=== PATIENT | female | born 1955 | race Caucasian/White ===

== ENCOUNTER 2018-07-22 16:51 | Inpatient (IN) | payer MEDICARE, MEDICAID ==
--- NOTE | 2018-07-22 17:16 | ED ---
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 She was attempting to get up from a chair when she realized she could not control her leg. Patient reports pain in the right hip and inability to ambulate. The patient states that she cannot use her right leg when she tries to move it. She has not had this problem in the past. PMHX Crohns, numbness in her fingers, hip prostheses on both sides. No PMHx neurological problems. Patient seen at 17:06. Phone call with Dr. Amezquita, neurologist, at 17:20. Guru luna called 17:22. The patient was taken to get the CT brain done at 17:25. Radiologist called at 17:[address] CT is negative. - History of Current Complaint Chief Complaint: EDWeakness Stated Complaint: RT LEG WEAKNESS Hx Obtained From: Patient Onset/Duration: Hours Pain Intensity: 0 Timing: Constant Location: Is Discrete @ - right leg and hip Aggravating Factor(s): Ambulation Able to Bear Weight: No - Allergies/Home Medications Allergies/Adverse Reactions: Allergies Allergy/AdvReac Type Severity Reaction Status Date / Time aspirin Allergy Bleeding Verified 07/22/18 17:10 infliximab [From Remicade] Allergy Tachycardia Verified 07/22/18 17:10 sulfasalazine Allergy Headache Verified 07/22/18 17:10 [From Azulfidine] Tetanus Vaccines and Toxoid Allergy Swelling Verified 07/22/18 17:10 adhesive tapes (plastic) Allergy Intermediate Rash And Uncoded 07/22/18 17:09 Itching PMH/Surg Hx/FS Hx/Imm Hx Endocrine/Hematology History: Denies: Hx Diabetes Cardiovascular History: Reports: Hx Angina, Hx Hypertension - WELL CONTROLLED, Other Cardiovascular Problems/Disorders - PT STATES HAD SCARLET FEVER Denies: Hx Coronary Artery Disease, Hx Hypercholesterolemia, Hx Myocardial Infarction, Hx Pacemaker/ICD, Hx Valvular Heart Disease Respiratory History: Denies: Hx Asthma, Hx Chronic Obstructive Pulmonary Disease (COPD) GI History: Reports: Hx Crohn's Disease - SINCE 1970s, Hx Gastroesophageal Reflux Disease - ON DAILY MEDS, Hx Irritable Bowel - CROHN'S DISEASE, Other GI Disorders - ILLEOSTOMY TUBE History: Reports: Hx Kidney Infection - PT STATES 3 WEEKS AGO WAS ON CIPRO AND SEEN BY DR. LOPEZ Denies: Hx Dialysis, Hx Renal Disease Musculoskeletal History: Reports: Hx Arthritis - MOST JOINTS, OSTEO, Other Musculoskeletal History - Bilateral hip replacements Sensory History: Reports: Hx Cataracts - BILAT, NO SURGERY YET Denies: Hx Contacts or Glasses, Hx Hearing Aid Opthamlomology History: Reports: Hx Cataracts - BILAT, NO SURGERY YET Denies: Hx Contacts or Glasses Neurological History: Reports: Hx Headaches, Hx Migraine - PT STATES HASNT HAD SINCE NECK FUSION, Hx Nerve Disease - NO Dx YET, NUMBNESS FEET Psychiatric History: Denies: Hx Panic Disorder - Cancer History Hx Chemotherapy: No Hx Radiation Therapy: No - Surgical History Surgery Procedure, Year, and Place: BILAT THR [facility], W/ REVISIONS OF BOTH 2012 [facility]. 1990 C-4,5,6,7 FUSION X3 [facility]. RECTUM REMOVED [facility]--- CATARACTS BILAL EYES. CHOLECYSTECTOMY. SEVERAL SMALL BOWEL EXCISIONS W/ COLOSTOMY [facility]. YOUNG CHILD FX OF RIGHT CLAVICLE. 01/2015 RT HAND/ LEFT HAND AND ELBOWS CARPAL TUNNEL RELEASE,ULNAR NERVE. DECOMPRESSION [facility]. RIGHT ROTATOR CUFF RESURFACED Hx Anesthesia Reactions: No Infectious Disease History: No Infectious Disease History: Denies: Hx Clostridium Difficile, Hx Hepatitis, Hx Human Immunodeficiency Virus (HIV), Hx of Known/Suspected MRSA, Hx Shingles, Hx Tuberculosis, History Other Infectious Disease, Traveled Outside the [place] in Last 30 Days - Family History Known Family History: Positive: Cardiac Disease - CHF (mother) Family History: FHx of breast cancer - Social History Alcohol Use: None Substance Use Type: Reports: None Substance Use Comment - Amount & Last Used: DAILY Smoking Status (MU): Light Every Day Tobacco Smoker Type: Cigarettes Amount Used/How Often: 1PPEVERY 2 WEEKS, WAS 1PPD 1974..RECENTLY TRYING TO STOP Length of Time of Smoking/Using Tobacco: 30+ YEARS Have You Smoked in the Last Year: Yes Review of Systems Positive: Myalgia - right hip, Decreased ROM Positive: Weakness - right leg, Numbness - right leg All Other Systems Reviewed And Are Negative: Yes Physical Exam - Summary Physical Exam Summary: Appearance: Well-appearing, Well-nourished, lying in bed comfortably Skin: Warm, dry, no obvious rash Eyes: sclera anicteric, no conjunctival pallor ENT: mucous membranes moist, pharynx appears normal Neck: Supple, nontender Respiratory: Clear to auscultation, no signs of respiratory distress Cardiovascular: Normal S1, S2. No murmurs. Normal distal pulses in tibial and radial bilaterally. Abdomen: Soft, nontender, normal active bowel sounds present Musculoskeletal: Normal, Strength/ROM Intact, Motor function in all 4 extremities is normal and symmetric, excluding the right leg. There is no rigidity or tremor noted. Good strength of right ankle and knee. Normal tendon reflexes. Neurological: A&Ox3, awake and alert, mentation is normal, speech is fluent and appropriate, Level of consciousness nml. The patient is alert and oriented. Cranial nerves are grossly intact. Gaze is conjugate and without nystagmus. Peripheral vision is intact to confrontation. There are no gross sensory abnormalities to light touch. There is no truncal or fine motor ataxia. Only has focal weakness of the proximal right hip. Upgoing toe on the right foot. Psychiatric: affect is normal, does not appear anxious or depressed NIH: 2 for right lower extremity weakness Triage Information Reviewed: Yes Vital Signs On Initial Exam: Initial Vitals Temp Pulse Resp BP Pulse Ox 99.5 F 83 12 162/88 98 07/22/18 17:06 07/22/18 17:06 07/22/18 17:06 07/22/18 17:06 07/22/18 17:06 Vital Signs Reviewed: Yes Diagnostics - Vital Signs Vital Signs Temp Pulse Resp BP Pulse Ox 07/22/18 17:06 99.5 F 83 12 162/88 98 - Laboratory Result Diagrams: 07/22/18 18:00 07/22/18 18:00 Lab Statement: Any lab studies that have been ordered have been reviewed, and results considered in the medical decision making process. - CT Brain CT Interpretation Completed By: Radiologist Summary of CT Findings: NO ACUTE INTRACRANIAL PATHOLOGY. ED physician has reviewed this report Head CTA CT Interpretation Completed By: Radiologist Summary of CT Findings: 1. NO INTERNAL CAROTID ARTERY STENOSIS BY NASCET CRITERIA. 2. NO ANEURYSM, VASCULAR MALFORMATION, OCCLUSION, OR STENOSIS OF THE VISUALIZED INTRACRANIAL CIRCULATION. ED physician has reviewed this report - EKG 17:19 Cardiac Rate: NL - 79 bpm EKG Rhythm: Sinus Rhythm Summary of EKG Findings: P waves, QRS complex, and T waves are within normal limits, T waves and intervals are normal, no ischemic changes. 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 Non-Paretic Hand: Both Correctly Best Gaze (Only Horizontal Eye Movement): Normal Visual Field Testing: No Visual Loss Facial Paresis-Pt to Smile & Close Eyes or Grimace Symmetry: Normal/Symmetrical Motor Function - Right Arm: No Drift-Holds 10 Seconds Motor Function - Left Arm: No Drift-Holds 10 Seconds Motor Function - Right Leg: Effort Against [place] Motor Function - Left Leg: No Drift-Holds 10 Seconds Limb Ataxia-Must be out of Proportion to Weakness Present: Absent Sensory (Use Pinprick to Test Arms/Legs/Trunk/Face): Normal Best Language (Describe Picture, Name Items): No Aphasia Dysarthria (Read Several Words): Normal Extinction and Inattention: No Abnormality Total Score: 2 Re-Evaluation - Re-Evaluation First Eval Re-Evaluation Time: 18:35 Change: Unchanged Comment: This is a 63-year-old woman with a somewhat atypical stroke presentation with very isolated proximal right-sided lower extremity weakness and an upgoing toe on that side. Her initial dry CT scan was read by the radiologist as nothing acute, and based on that and discussion with the stroke neurologist from [facility], I ordered tPA. However, when the stroke neurologist himself reviewed CT scan he was concerned about the possibility of a tiny hemorrhage in the left thalamus. On my review the images I can see his concern and concur with the decision to not give TPA, especially given the patient's low NIH stroke scale which gives her a good prognosis any event. I discussed this with the patient and her friends and family and they also understand and agree. 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 She was attempting to get up from a chair when she realized she could not control her leg. Patient reports pain in the right hip and inability to ambulate. The patient states that she cannot use her right leg when she tries to move it. Patient seen at 17:06. We discussed patient care with [facility] neurologist, and they recommended Guru Luna protocol. Guru luna called at 17:22. Taken to CT scan at 17:25. Radiologist called at 17:35 to say the Brain CT is negative. An EKG reveals NSR 79, P waves, QRS complex, and T waves are within normal limits, T waves and intervals are normal, no ischemic changes. CT brain, per radiologist, NO ACUTE INTRACRANIAL PATHOLOGY. Head CTA reveals, per radiologist , 1. NO INTERNAL CAROTID ARTERY STENOSIS BY NASCET CRITERIA. 2. NO ANEURYSM, VASCULAR MALFORMATION, OCCLUSION, OR STENOSIS OF THE VISUALIZED INTRACRANIAL CIRCULATION. ED physician has reviewed this radiology report. Test results with no significant abnormalities. In the ED course the patient was given Alteplase and Iodixanol. We discussed patient care with Dr. Torres, hospitalist , and they recommended admission. - Diagnoses Provider Diagnoses: Intraparenchymal hemorrhage of brain - Physician Notifications Discussed Care Of Patient With: Mani Amezquita Time Discussed With Above Provider: 17:20 Instructed by Provider To: Other - code luna - Critical Care Time Critical Care Time: 30-74 min - 63-year-old woman with acute stroke syndrome requiring emergent neurology consultation, review of imaging studies, and decision regarding thrombolytic lysis Discharge - Sign-Out/Discharge Documenting (check all that apply): Patient Departure - admission - Discharge Plan Condition: Fair Disposition: ADMITTED TO [facility] Referrals: Aydee Ayoub MD [Primary Care Provider] - - Billing Disposition and Condition Condition: FAIR Disposition: Admitted to [facility] - Attestation Statements Document Initiated by Alexis: Yes Documenting Karelyibe: Issac Bean Provider For Whom Alexis is Documenting (Include Credential): Javad Neal MD Scribamilcar Attestation: IIssac, scribed for Javad Neal MD on 07/22/18 at 1907. Scribe Documentation Reviewed: Yes Provider Attestation: The documentation as recorded by the Issac kimball accurately reflects the service I personally performed and the decisions made by , Javad Neal MD Status of Scribe Document: Viewed Consult Consult: 18:[address] Torres about the patient and they recommended admission
[2018-07-22] MEDS ORDERED: Iodixanol* (CONTRAST) 320 MG/ML 100 ML SDV IV ONE (17:41)
[2018-07-22] MEDS ORDERED: Alteplase* 50 MG VIAL IV ONE ×2 (17:53)
[2018-07-22] MEDS ORDERED: Alteplase* 100 MG VIAL ONE (17:59)
[2018-07-22 18:07] LABS: ABS Basophils 0 10^3/ul (0-0.2); ABS Eosinophils 0.1 10^3/ul (0-0.6); ABS Monocytes 0.7 10^3/ul (0-0.8); ABS Neutrophils 5.6 10^3/ul (1.5-7.7); ABS Nucleated RBC 0 10^3/ul; Eosinophil % 0.7 %; Hematocrit 43 % (35-47); Hemoglobin 14.6 g/dl (12.0-16.0); Lymphocyte % 23.5 %; Mean Corpuscular HGB Conc 34 g/dl (31-36); Mean Corpuscular Hemoglobin 32 pg (27-31); Mean Corpuscular Volume 96 fL (80-97); Nucleated Red Blood Cells % 0; Platelet Count 162 10^3/ul (150-450); Red Cell Distribution Width 13 % (10.5-15); White Blood Count 8.5 10^3/ul (3.5-10.8)
[2018-07-22 18:13] LABS: INR 0.84 (0.77-1.02)
[2018-07-22 18:25] LABS: ALT 13 U/L (7-52); AST 24 U/L (13-39); Albumin 4.1 g/dL (3.2-5.2); Albumin/Globulin Ratio 1.5 (1-3); Alkaline Phosphatase 55 U/L (34-104); Anion Gap 6 mmol/L (2-11); BUN/Creatinine Ratio 18.7 (8-20); Blood Urea Nitrogen 14 mg/dL (6-24); CO2 Carbon Dioxide 26 mmol/L (22-32); Calcium 9.1 mg/dL (8.6-10.3); Chloride 105 mmol/L (101-111); EGFR Non-African American 77.6 (>60); Globulin 2.8 g/dL (2-4); Glucose 110 mg/dL (70-100); Potassium 3.4 mmol/L (3.5-5.0); Sodium 137 mmol/L (135-145); Total Protein 6.9 g/dL (6.4-8.9)
[2018-07-22 18:38] LABS: Alcohol < 10 mg/dL (<10)
[2018-07-22] MEDS ORDERED: hydrALAZINE IV* 20 MG/ML VIAL IV SLOW PU PRN (19:26)
--- NOTE | 2018-07-22 20:17 | HP ---
CC: Dr. Amezquita * HISTORY AND PHYSICAL: DATE OF ADMISSION: 07/22/18 TIME OF ADMISSION: 7 p.m. PRIMARY CARE PHYSICIAN: None currently. CHIEF COMPLAINT: "I couldn't stand up." HISTORY OF PRESENT ILLNESS: This is a 63-year-old female with history of Crohn' s and hypertension who presents to the emergency department with right leg weakness that began this morning. She was resting in her lounge chair when she tried to get up, she could not stand. She says for about half an hour, she "tried to get her right leg to work" and could not, so she called her friend who called EMS. She continues to have right leg weakness. In the ED, she was a code franco and her NIH scale score was 2. Telehealth was utilized and a brain CT showed no acute intracranial pathology and the CTA showed no large vessel occlusion; however, the neurologist at [place] reported a small thalamic hemorrhage, so tPA was deferred. Ms. Devi denies any other neurologic symptoms including visual changes, headaches, numbness, or tingling. She has not been ill recently. She has not had any falls. Of note, she has not been under the care of a medical doctor as she is interested in pursuing alternative therapies. She follows with Shireen Haji and she does see Dr. Kwan for GI. PAST MEDICAL HISTORY: Crohn disease status post partial colectomy with an ostomy, bilateral hip replacements, neck fusion, osteoarthritis, hypertension. Of note, her Crohn's has required hyperalimentation in the past but she currently follows a regular diet. SOCIAL HISTORY: She smokes a few cigarettes per day. She denies alcohol use. She smokes marijuana daily. She lives alone. Her healthcare proxy is Melly Chatman. REVIEW OF SYSTEMS: Positive for a 10-pound weight loss over the past few months. She has not had any fevers, falls, headaches, nausea, vomiting, visual changes. The remainder of the review of systems is negative. PHYSICAL EXAMINATION GENERAL: Alert, tearful female who appears older than her stated age. She is thin and frail. VITAL SIGNS: Temperature 99.5, heart rate 81, respiratory rate 14, pulse ox 96 on room air, blood pressure 147/80. HEENT: Shows no nystagmus. Her pupils are 3 mm bilaterally. Her oral mucosa is moist. She has no oropharyngeal exudates. NECK: No JVP. No adenopathy. No carotid bruits. LUNGS: Her lungs are clear bilaterally. CHEST: She has several healed chest incisions. She is in a regular rate and rhythm with no murmurs. ABDOMEN: A colostomy is noted with thin brown stool. She has no abdominal pain to palpation. No guarding or rebound. NEUROLOGIC: Her face is symmetric. Her upper extremity strength is 5/5. Her left lower extremity strength is 5/5 in the hip, knee, and ankle. Her right lower extremity strength is 0/5 in the hip, 5/5 in the knee, and 5/5 in the ankle. Her deep tendon reflexes in the patellae are 2+ bilaterally. She is also unable to internally or externally rotate the hip. She has tenderness to palpation on the lateral aspect of the right hip. Her sensation is grossly intact in both extremities and her DP and PT pulses are 2+ bilaterally. EXTREMITIES: Thin with no ecchymosis, edema, or rashes. DIAGNOSTIC STUDIES/LAB DATA: Brain CT, no acute intracranial pathology. Head CTA shows no internal carotid artery stenosis and no aneurysm, vascular malformation, occlusion, or stenosis, visualized intracranial circulation. EKG shows normal sinus rhythm at 79, normal axis, normal intervals, and no ST or T wave changes. White blood cells 8.5, hemoglobin 14.6, platelets 162. INR 0.84. Sodium 137, potassium 3.4, chloride 105, bicarb 26, creatinine 0.75, lactic acid 1.8. Troponin 0.01. LFTs within normal limits. Serum alcohol level was undetectable. ASSESSMENT AND PLAN: This is a 63-year-old female with a history of Crohn disease with malnutrition and hypertension, who presents to the emergency department with right leg weakness and is found to have a small thalamic hemorrhage per telemedicine's neurologist's read. 1. Thalamic hemorrhage vs. Ischemic CVA. This may be the etiology of her right leg weakness. The CT read does not site this but the telehealth phone call between the neurologist and the ED physician suggested a small bleed. The underlying reason for hemorrhage is unclear. She does have hypertension and is hypertensive here. Her highest blood pressure has been 179/85. She is not on any antiplatelet or anticoagulation. For this reason, tPA was appropriately avoided. I am consulting Neurology and will work to control her blood pressure better. I am ordering an MRI for the morning to better evaluated for a hemorrhage and appreciate further Neurology recommendations. 2. Right hip pain and weakness. Again, the working diagnosis is that this is the reflection of a thalamic hemorrhage; however, I would also like to rule out intrinsic hip pathology and start with a hip x-ray. 3. Crohn disease status post colectomy, this does not appear to be flared. 4. Severe protein-calorie malnutrition. 5. Hypertension. I am continuing her home amlodipine and we will add p.r.n. options for systolic blood pressure over 180. 6. DVT prophylaxis, contraindicated in the setting of possible intracranial hemorrhage. 7. Diet, unrestricted. She plans to bring in her supplements from home. 8. She is full code. I have discussed this with her. [id number]/[facility] #: [id number] WAY[facility]
[2018-07-22] MEDS: Sucralfate TAB* 1 GM PO SCH (22:12)
[2018-07-22] MEDS: Nicotine PATCH 14 MG/24 HR* PATCH TRANSDERM SCH (23:08)
[2018-07-23 00:36] LABS: Urine Appearance Clear; Urine Bilirubin Negative (Negative); Urine Blood Negative (Negative); Urine Color Straw; Urine Glucose Negative (Negative); Urine Ketones Negative (Negative); Urine Nitrite Negative (Negative); Urine Protein Negative (Negative); Urine Specific Gravity 1.033 (1.010-1.030); Urine Urobilinogen Negative (Negative)
[2018-07-23 00:45] LABS: Barbiturates Urine Screen None Detected (None Detect); Benzodiazepine Urine Screen None Detected (None Detect); Urine Cannabinoids Screen Presumptive Positive (None Detect)
[2018-07-23 06:20] LABS: Activated Partial Thrombo Time 26.4 seconds (26.0-36.3); INR 0.82 (0.77-1.02)
[2018-07-23 07:33] LABS: ABS Basophils 0 10^3/ul (0-0.2); ABS Eosinophils 0.1 10^3/ul (0-0.6); ABS Lymphocytes 3.1 10^3/ul (1.0-4.8); ABS Monocytes 0.8 10^3/ul (0-0.8); ABS Neutrophils 6.3 10^3/ul (1.5-7.7); ABS Nucleated RBC 0 10^3/ul; Eosinophil % 0.7 %; Hematocrit 49 % (35-47); Hemoglobin 16.5 g/dl (12.0-16.0); Lymphocyte % 29.8 %; Mean Corpuscular HGB Conc 34 g/dl (31-36); Mean Corpuscular Hemoglobin 32 pg (27-31); Mean Corpuscular Volume 97 fL (80-97); Mean Platelet Volume 7.8 fL (7.4-10.4); Nucleated Red Blood Cells % 0.1; Platelet Count 238 10^3/ul (150-450); Red Blood Count 5.11 10^6/ul (4.00-5.40); Red Cell Distribution Width 13 % (10.5-15); White Blood Count 10.2 10^3/ul (3.5-10.8)
[2018-07-23 07:50] LABS: Albumin 4.5 g/dL (3.2-5.2); Calcium 9.7 mg/dL (8.6-10.3); Potassium 3.3 mmol/L (3.5-5.0); Total Bilirubin 0.5 mg/dL (0.2-1.0)
[2018-07-23 07:57] LABS: Albumin/Globulin Ratio 1.2 (1-3); BUN/Creatinine Ratio 11.6 (8-20); EGFR Non-African American 85.4 (>60); Globulin 3.8 g/dL (2-4); HDL Cholesterol 51.9 mg/dL; Total Protein 8.3 g/dL (6.4-8.9)
[2018-07-23] MEDS: amLODIPine TAB* 5 MG PO SCH (09:10)
[2018-07-23] MEDS: Sucralfate TAB* 1 GM PO SCH ×5 (09:10→20:12)
[2018-07-23] MEDS: Nicotine PATCH 14 MG/24 HR* PATCH TRANSDERM SCH (09:11)
[2018-07-23] MEDS ORDERED: Ondansetron INJ* 2 MG/ML VIAL IV PRN (10:33)
--- NOTE | 2018-07-23 14:10 | PN ---
Subjective Date of Service: 07/23/18 Interval History: R arm back to normal or near normal. R leg better also, still impaired. No new c/o. Objective Active Medications: Amlodipine Besylate (Norvasc Tab*) 10 mg PO DAILY [facility] Last Admin: 07/23/18 09:10 Dose: 10 mg Clopidogrel Bisulfate (Plavix Tab*) 75 mg PO DAILY [facility] Famotidine (Pepcid Tab*) 20 mg PO BID [facility]; Protocol Hydralazine HCl (Apresoline Iv*) 5 mg IV SLOW PU Q6H PRN PRN Reason: SYSTOLIC BP GREATER THAN: Nicotine (Nicotine Patch 14 Mg/24 Hr*) 1 patch TRANSDERM DAILY [facility] Last Admin: 07/23/18 09:11 Dose: 1 patch Ondansetron HCl (Zofran Inj*) 4 mg IV Q4H PRN PRN Reason: NAUSEA Last Admin: 07/23/18 11:37 Dose: 4 mg Pharmacy Profile Note (Nicotine Patch Removal Note*) 1 note FOLLOW UP 2100 [facility] Sucralfate (Carafate*) 1 gm PO QID [facility] Last Admin: 07/23/18 12:24 Dose: Not Given Vital Signs - 8 hr 07/23/18 07/23/18 07/23/18 07:33 08:00 11:57 Temperature 98.3 F 99.1 F Pulse Rate 78 91 Respiratory 16 16 18 Rate Blood Pressure 137/72 142/67 (mmHg) O2 Sat by Pulse 98 95 Oximetry Oxygen Devices in Use Now: None Appearance: Alert, supine in bed. In good spirits. Looks comfortable. Eyes: No Scleral Icterus Neurological: Alert and Oriented x 3, NL Sensation - R show girl strong. Moves R leg but PT reports her gait is impaired. Result Diagrams: 07/23/18 06:00 07/23/18 06:00 Assess/Plan/Problems-Billing Assessment: - Patient Problems (1) CVA (cerebral vascular accident) Current Visit: Yes Status: Acute Code(s): I63.9 - CEREBRAL INFARCTION, UNSPECIFIED SNOMED Code(s): 451761672 Comment: Small L nonhemorrhagic CVA on MRI. Will discuss with Dr. Amezquita. Pt states she does not tolerate ASA due to lip swelling, consider clopidogrel. PMRU referral. (2) Crohns disease Current Visit: Yes Status: Acute Code(s): K50.90 - CROHN'S DISEASE, UNSPECIFIED, WITHOUT COMPLICATIONS SNOMED Code(s): 71261174 Comment: Pt due for her monthly Cimzia, will discuss with Dr. Kwan. (3) HTN (hypertension) Current Visit: Yes Status: Acute Code(s): I10 - ESSENTIAL (PRIMARY) HYPERTENSION SNOMED Code(s): 58742894 Comment: Continue amlodipine. (4) Tobacco abuse Current Visit: Yes Status: Acute Code(s): Z72.0 - TOBACCO USE SNOMED Code( s): 170474944 Comment: Pt advised to quit smoking and avoid second hand smoke.
[2018-07-23] MEDS: Famotidine TAB* 20 MG PO SCH ×2 (15:08→20:10)
[2018-07-23] MEDS: Clopidogrel TAB* 75 MG PO SCH (15:19)
--- NOTE | 2018-07-23 16:37 | CONS ---
NEUROLOGY CONSULTATION: DATE OF CONSULT: 07/23/18 LOCATION: She is inpatient in room 444. REFERRING PROVIDER: Dr. Torres. CHIEF COMPLAINT: Right leg weakness. HISTORY OF PRESENT ILLNESS: Sasha Devi is a 63-year-old woman who tried to get up out of her chair. She was able to eventually get up by using a living room chair as a walker. She called a friend who called EMS. She was brought into the emergency room where she had right leg weakness. There was no other weakness. She had a telestroke consultation from [facility]. The [facility] stroke specialist thought there might be a very small thalamic hemorrhagic and tPA was not given. Today, she feels her leg is better. She cannot walk, but she has been able to stand a little bit. There is no prior history of cerebrovascular disease. She had an MRI of the brain, which was done today and I reviewed the images and there is evidence of an acute left anterior cerebral artery infarction. PAST MEDICAL HISTORY: Notable for severe Crohn's disease with multiple operations. She required extensive hospitalizations and hyperalimentation. She continues to have problems with her intestines and has an ileostomy/colostomy. She has been losing weight and is down to about 80 pounds. She smokes, but is trying to quit and is down to a couple of cigarettes a day. She has chronic neuropathic pain in her feet and hands and has had bilateral hip replacements. MEDICATIONS: At home, consist of: 1. Vitamin B12 injections once a month. 2. I believe she is also on an immunological agent for her Crohn's. ALLERGIES: She is allergic to ASPIRIN, which caused lip swelling and cannot take nonsteroidal anti-inflammatory drugs. She had an allergic reaction to INFLIXIMAB as well. PHYSICAL EXAM: She is extremely thin. She has been afebrile throughout her hospital stay. Blood pressure 140/67, heart rate 90 and regular, respiratory rate 18. Oxygen saturation is 95% on room air. Heart is in a regular rhythm. There are no murmurs. There are multiple well-healed surgical scars on her neck and chest. There are no cervical bruits. Oral mucosa is moist and atraumatic. Lungs are clear bilaterally. Neurological Exam: She has left Freddy's syndrome. Both pupils react to light. She has mild ptosis of the left eye. She said that was done after a carotid surgery that she had years ago. Facial musculature is symmetric. Eye movements and funduscopic exam are normal. Visual archer are full to confrontation. Facial sensation to light touch is symmetric. Palate and tongue appear normal and there is no dysarthria. Hearing is intact. Motor exam reveals diffuse decreased muscle bulk. She has good strength in the upper extremities other than mild proximal weakness. She has proximal weakness in the left lower extremity in the grade 4 range, distal dorsiflexor strength is grade 5-. She can barely and only briefly raise the right leg off the bed. She has reasonably good plantar and dorsiflexor strength in the grade 4 range on the right. She has a right Babinski sign where the left plantar is flexor. Reflexes are absent at ankles, trace at knees and biceps. There is no rest or action tremor. She is a good historian. Memory is intact and language is fluent. She has stocking loss of light touch and pin discrimination in both legs. She has decreased light touch in the fingertips. I did not attempt to ambulate her. DIAGNOSTIC STUDIES/LAB DATA: Laboratory data reviewed and includes a chemistry profile with a potassium of 3.3, anion gap 15, glucose 108. Her last vitamin B12 level on 04/08/18 was normal at 540. Vitamin D level 04/14/18 was 34. Albumin is normal at 4.5. Her INR is within normal limits at 0.82. CBC is notable for an elevated hemoglobin at 16.5. Urinalysis is notable for elevated specific gravity, but otherwise unremarkable. MRI scan of the brain is reviewed and reveals a chronic small vessel left cerebellar infarct as well as small in the left frontal area. There is an acute infarct in the distribution of the left anterior cerebral artery. CT angiogram of the head and neck was interpreted as normal. I reviewed the images and I agree. IMPRESSION AND PLAN: Impression is that of a left anterior cerebral artery stroke. She does not appear to have large vessel disease. She does not appear to have diabetes either. I will check an hemoglobin A1c and I would recommend checking a thiamine level and folate level given her neuropathy and malnutrition. I would recommend that she have transthoracic echocardiogram as well to look for potential cardioembolic source. She has been started on Plavix , which I agree with. Although her LDL is a little above 70, given her intestinal disorders, I do not recommend adding a statin. She is currently trying to quit smoking. [id number]/[facility] #: [id number] [facility]
[2018-07-23] MEDS: Nicotine Patch Removal NOTE FOLLOW UP SCH (20:10)
[2018-07-24] MEDS: Nicotine PATCH 14 MG/24 HR* PATCH TRANSDERM SCH (07:57)
[2018-07-24] MEDS: amLODIPine TAB* 5 MG PO SCH (07:57)
[2018-07-24] MEDS: Clopidogrel TAB* 75 MG PO SCH (07:57)
[2018-07-24] MEDS: Cetirizine* 10 MG TAB PO SCH (07:57)
[2018-07-24] MEDS: Sucralfate TAB* 1 GM PO SCH ×3 (07:57→20:06)
[2018-07-24] MEDS: Famotidine TAB* 20 MG PO SCH ×2 (07:57→20:07)
--- NOTE | 2018-07-24 10:52 | ECHO ---
Patient: SOLA BURNETTE [facility] Rec#: [id number] : 1955 Date: 07/24/2018 Age: 63y Height: 163 cm / 64.2 in Weight: 39 kg / 86.0 lbs Sex: F BSA: 1.37 Room#: [facility] Admit Date#: 07/22/2018 Type: Inpatient Referring: Mani Amezquita MD Reading: Dusty Dyer MD Insulation Extruder Operator: Jen JosephSUSAN CC: Aydee Ayoub Transthoracic Echocardiogram Indication: CVA BP: 124/70 HR: 71 Rhythm: NSR Findings History: HTN, smoker, marijuana use. Technical Comments: The study is technically limited due to poor parasternal windows. Completed at 1000. Left Ventricle: The left ventricular chamber size is decreased. There is no left ventricular hypertrophy. Global left ventricular wall motion and contractility are within normal limits. There is normal left ventricular systolic function. The estimated ejection fraction is 55-60%. Abnormal left ventricular diastolic function is observed. There is an E to A reversal in the mitral valve flow pattern suggestive of diastolic dysfunction. Left Atrium: The left atrial chamber size is normal. Right Ventricle: Moderator Band present. The right ventricular cavity size is normal. The right ventricle wall thickness is mildly increased. The right ventricular global systolic function is normal. Right Atrium: The right atrial cavity size is normal. Interatrial septum appears intact without evidence of shunting. The bubble study is negative. A patent foramen ovale is not demonstrated with color Doppler and agitated contrast. Aortic Valve: The aortic valve is trileaflet. The aortic valve leaflets are mildly thickened. There is a trace of aortic regurgitation. There is no evidence of aortic stenosis. Mitral Valve: There is mitral annular calcification. The mitral valve leaflets are mildly thickened. There is trace to mild mitral regurgitation. There is no evidence of mitral stenosis. Tricuspid Valve: The tricuspid valve leaflets are normal. There is trace to mild tricuspid regurgitation. The right ventricular systolic pressure is estimated at 22 mmHg. No pulmonary hypertension is noted. There is no tricuspid stenosis. Pulmonic Valve: The pulmonic valve appears normal. There is a trace pulmonic regurgitation. There is no pulmonic stenosis. Pericardium: There is no significant pericardial effusion. Aorta: The ascending aorta is not well visualized. The aortic arch is not well visualized. The aortic root is normal in size. Pulmonary Artery: The main pulmonary artery appears normal. Venous: The inferior vena cava appears normal in size. There is a greater than 50% respiratory change in the inferior vena cava dimension. Contrast: Normal saline was used as contrast for the bubble study. Images 89-91. Intravenous contrast was used to help determine presence of intracardiac shunting. Summary: There was not any prior study for comparison. Conclusions The left ventricular chamber size is decreased. Global left ventricular wall motion and contractility are within normal limits. There is normal left ventricular systolic function. The estimated ejection fraction is 55-60%. Abnormal left ventricular diastolic function is observed. There is an E to A reversal in the mitral valve flow pattern suggestive of diastolic dysfunction. The bubble study is negative. A patent foramen ovale is not demonstrated with color Doppler and agitated contrast. There is a trace of aortic regurgitation. There is trace to mild mitral regurgitation. There is trace to mild tricuspid regurgitation. Measurements Name Value Normal Range RVIDd (AP) 2D 2.6 cm (0.9 - 2.6) RVDdMajor (2D) 3.1 cm (2.2 - 4.4) RAd ISD 4CH 3.4 cm (3.4 - 4.9) RA (A4C)W 3 cm (2.9 - 4.6) IVSd (2D) 0.8 cm (0.6 - 1) LVPWd (2D) 0.9 cm (0.6 - 1) LVIDd (2D) 2.7 cm (3.6 - 5.4) LVIDs (2D) 1.7 cm - LV FS (2D) 37 % (25 - 45) Aortic Annulus 1.9 cm (1.4 - 2.6) Ao root diameter (2D) 2.8 cm (2.1 - 3.5) LA dimension (AP) 2D 2.8 cm (2.3 - 3.8) LAd ISD 4CH 3.5 cm (2.9 - 5.3) LA ISD 4CH W 3.1 cm (2.5 - 4.5) Name Value Normal Range LA ESV BP (A/L) index 16 ml/m2 - Name Value Normal Range MV E-wave Vmax 0.6 m/sec - MV deceleration time 380 msec - MV A-wave Vmax 0.8 m/sec - MV E:A ratio 0.8 ratio - LV septal e' Vmax 0.07 m/sec - LV lateral e' Vmax 0.09 m/sec - LV E:e' septal ratio 8.6 ratio - LV E:e' lateral ratio 6.7 ratio - Name Value Normal Range AV Vmax 1.1 m/sec - AV VTI 21 cm - AV peak gradient 4 mmHg - AV mean gradient 2 mmHg - LVOT Vmax 0.9 m/sec - LVOT VTI 17 cm - LVOT peak gradient 3 mmHg - LVOT mean gradient 2 mmHg - Name Value Normal Range TR Vmax 2.2 m/sec - TR peak gradient 19 mmHg - RAP 3 mmHg - RVSP 22 mmHg - IVC diameter 1.8 cm - Name Value Normal Range PV Vmax 0.9 m/sec - PV peak gradient 3 mmHg -
--- NOTE | 2018-07-24 11:29 | PN ---
Subjective Date of Service: 07/24/18 Interval History: Feeling stronger. Appetite OK, better than before. She states she has lost about 10 lbs [facility] 6 months. Objective Active Medications: Amlodipine Besylate (Norvasc Tab*) 10 mg PO DAILY [facility] Last Admin: 07/24/18 07:57 Dose: 10 mg Cetirizine HCl (Zyrtec*) 10 mg PO DAILY [facility]; Protocol Last Admin: 07/24/18 07:57 Dose: 10 mg Clopidogrel Bisulfate (Plavix Tab*) 75 mg PO DAILY [facility] Last Admin: 07/24/18 07:57 Dose: 75 mg Famotidine (Pepcid Tab*) 20 mg PO BID [facility]; Protocol Last Admin: 07/24/18 07:57 Dose: 20 mg Hydralazine HCl (Apresoline Iv*) 5 mg IV SLOW PU Q6H PRN PRN Reason: SYSTOLIC BP GREATER THAN: Nicotine (Nicotine Patch 14 Mg/24 Hr*) 1 patch TRANSDERM DAILY [facility] Last Admin: 07/24/18 07:57 Dose: 1 patch Ondansetron HCl (Zofran Inj*) 4 mg IV Q4H PRN PRN Reason: NAUSEA Last Admin: 07/23/18 11:37 Dose: 4 mg Pharmacy Profile Note (Nicotine Patch Removal Note*) 1 note FOLLOW UP 2100 [facility] Last Admin: 07/23/18 20:10 Dose: 1 note Sucralfate (Carafate*) 1 gm PO QID [facility] Last Admin: 07/24/18 07:57 Dose: 1 gm Vital Signs - 8 hr 07/24/18 07/24/18 03:41 07:48 Temperature 98.4 F 96.8 F Pulse Rate 73 70 Respiratory 16 18 Rate Blood Pressure 124/70 124/68 (mmHg) O2 Sat by Pulse 95 99 Oximetry Oxygen Devices in Use Now: None Appearance: Alert, in a chair. In good spirits. Looks comfortable. Eyes: No Scleral Icterus Neurological: Alert and Oriented x 3, NL Sensation - Good strength all extremities. no tremor Result Diagrams: 07/23/18 06:00 07/23/18 06:00 Assess/Plan/Problems-Billing Assessment: - Patient Problems (1) CVA (cerebral vascular accident) Current Visit: Yes Status: Acute Code(s): I63.9 - CEREBRAL INFARCTION, UNSPECIFIED SNOMED Code(s): 802314592 Comment: Small L nonhemorrhagic CVA on MRI. Discussed with Dr. Amezquita. Pt states she does not tolerate ASA due to lip swelling, continuer clopidogrel. Possible PMRU admission 07/25. (2) Crohns disease Current Visit: Yes Status: Acute Code(s): K50.90 - CROHN'S DISEASE, UNSPECIFIED, WITHOUT COMPLICATIONS SNOMED Code(s): 81952811 Comment: Pt will have her Cimzia brought in to the hospital for administration by the staff on 07/24. Discussed with Dr. Kwan. (3) HTN (hypertension) Current Visit: Yes Status: Acute Code(s): I10 - ESSENTIAL (PRIMARY) HYPERTENSION SNOMED Code(s): 54962876 Comment: Continue amlodipine. (4) Tobacco abuse Current Visit: Yes Status: Acute Code(s): Z72.0 - TOBACCO USE SNOMED Code( s): 911207154 Comment: Pt advised to quit smoking and avoid second hand smoke.
[2018-07-24] MEDS: Nicotine Patch Removal NOTE FOLLOW UP SCH (20:10)
[2018-07-25] MEDS: Sucralfate TAB* 1 GM PO SCH (06:11)
[2018-07-25 07:44] VITALS: BP 121/60
[2018-07-25] MEDS: amLODIPine TAB* 5 MG PO SCH (07:48)
[2018-07-25] MEDS: Cetirizine* 10 MG TAB PO SCH (07:48)
[2018-07-25] MEDS: Clopidogrel TAB* 75 MG PO SCH (07:48)
[2018-07-25] MEDS: Famotidine TAB* 20 MG PO SCH (07:48)
[2018-07-25] MEDS: Nicotine PATCH 14 MG/24 HR* PATCH TRANSDERM SCH (07:48)
[2018-07-25] MEDS ORDERED: CERTOLIZUMAB PEGOL 200 MG SUBCUT SCH (09:00)
== END 2018-07-25 10:35 | DRG 64 ==
LOC: ED 16:51 → MEDTELE 19:16
PROVIDERS: ADMIT Internal Medicine; ATTEND Internal Medicine
DX: I63.522 Cerebral infarction due to unspecified occlusion or stenosis of left anterior cerebral artery (principal); E43 Unspecified severe protein-calorie malnutrition; K50.90 Crohn's disease, unspecified, without complications; Z68.1 Body mass index [BMI] 19.9 or less, adult; G90.2 Horner's syndrome; G62.89 Other specified polyneuropathies; G83.11 Monoplegia of lower limb affecting right dominant side; F17.210 Nicotine dependence, cigarettes, uncomplicated; I10 Essential (primary) hypertension; M19.90 Unspecified osteoarthritis, unspecified site; F12.90 Cannabis use, unspecified, uncomplicated; Z96.643 Presence of artificial hip joint, bilateral; Z93.2 Ileostomy status
CPT/HCPCS: 36415; 70450; 70496; 70498; 70551; 80053; 80061; 80307; 80320; 81003; 82746; 83036; 83605; 84425; 84484; 85025; 85610; 85730; 93005; 93306; 99284; A9270-GY; G0480; G8978-GP-CJ; G8979-GP-CH; G8987-GO-CJ; G8988-GO-CI; J2405; J2997; Q9967

== ENCOUNTER 2018-07-25 07:03 | Inpatient (IN) | payer MEDICARE, MEDICAID ==
[2018-07-25] MEDS ORDERED: Acetaminophen TAB* 325 MG PO PRN (12:21)
[2018-07-25] MEDS ORDERED: Cyanocobalamin INJ * 1,000 MCG/ML VIAL 1 ML VIAL IM ONE (12:31)
--- NOTE | 2018-07-25 12:43 | PMRUTEAM ---
PMRU: Team Meeting Current Status: Physical Therapy: Current Status Bed Mobility Assistance Independent Transfer Mobility Assistance Contact Guard Assist Ambulation Assistance Contact Guard Assist Ambulation Assistive Devices Rolling Walker Stairs Assistance not tested Stairs Recommended Devices not tested Number of Stairs 6 Occupational Therapy: Current Status - supervision dressing, bathing, toileting , grooming. Contact guard for functional transfers. Independent eating. Social Work: Current Status Discharge Plan return home with home care svs and family support Potential for Family Training pt's family are involved and supportive Anticipated Discharge Home Destination Discharge With home care svs and family support Goals: Physical Therapy: Initial Goals Independent bed mobility, transfers, ambulation with least restrictive device 150ft and 6 stairs. Occupational Therapy: Initial Goals Independent feeding, grooming, bathing, dressing, toileting and simple home tasks and cooking. Social Work: Goals Discharge Plan return home with home care svs and family support Potential for Family Training pt's family are involved and supportive Anticipated Discharge Home Destination Discharge With home care svs and family support Care Plan: Self administration and education on medications. Refer to [facility] for f/u and assistance with finding a PCP. Stroke education Ostomy self management Medicine Note: Length of Stay: [4 days] Anticipated Discharge Destination: Home Tentative Discharge Date: [07/29/18] Discharged to: [home]
--- NOTE | 2018-07-25 15:40 | HP ---
CC: Dr. Kwan; Shireen Haji NP REHABILITATION ADMISSION: DATE OF ADMISSION: 07/25/18 PRIMARY CARE PROVIDER: None. CONTINUITY DIRECTOR: Dr. Kwan. VICE PRESIDENT DIGITAL STRATEGIST: Shireen Haji NP. REASON FOR ADMISSION: Ischemic stroke with right hemiplegia. HISTORY OF PRESENT ILLNESS: This is a 63-year-old woman, who has been disabled due to Crohn's disease and chronic malnutrition, who was admitted on 07/22/18 with right leg weakness. CT of the head was negative for hemorrhage, although the telemedicine neurologist was concerned for a very small thalamic hemorrhage. CTA showed no large vessel occlusion. No tPA was administered. She was later seen by Dr. Amezquita the following day. MRI of the brain showed a subacute ischemic infarct in the left precentral and postcentral areas with some chronic white matter changes in small vessel territories. She was started on Plavix. Folate level was normal. A thiamine level was ordered and drawn, but the result is not back yet. This was done due to her severe malnutrition. Transthoracic echo on 07/24/18 showed ejection fraction of 55% to 60%. There was no evidence of a patent foramen ovale. She has had return of motor function in her right arm and leg, although still has some impaired coordination and proprioceptive deficits. Prior to admission, she was independent with all ADLs , mobility, and driving. She did not require any assistive devices. With occupational therapy, she has required contact guard assistance for functional transfers. With physical therapy, she required contact guard assistance for transfers and ambulating using a rolling walker. She has not done any stairs yet. PAST MEDICAL HISTORY: 1. Crohn's disease, status post partial colectomy with ostomy. 2. Status post bilateral hip replacements and revisions. 3. Status post cervical fusion, C4 through C7. 4. Osteoarthritis. 5. Hypertension. 6. Ischemic stroke, see history of present illness. 7. Chronic neuropathic pain affecting her hands and feet bilaterally. 8. History of multiple cut downs at her neck for hyperalimentation with one resulting in a pneumothorax and also left eye ptosis. MEDICATIONS: 1. Vitamin B12 injection IM q. month, which is due today. 2. Plavix 75 mg daily. 3. Norvasc 10 mg daily. 4. Zyrtec 10 mg daily. 5. Pepcid 20 mg b.i.d. 6. Nicotine patch 14 mg per 24 hours. 7. Sucralfate 1 g 4 times per day. 8. Cimzia 200 mg subcutaneously q.28 days given today. ALLERGIES: ASPIRIN, NSAIDS, INFLIXIMAB, SULFASALAZINE, TETANUS VACCINE, ADHESIVE TAPE. FAMILY HISTORY: Sister, bladder cancer. Niece, breast cancer. Mother, congestive heart failure. Father, lung cancer. SOCIAL HISTORY: She lives alone. She has an apartment with 5 to 6 steps to enter and then is 1 level. She has smoked a few cigarettes per day and has been quitting, but as of this episode now, says that she has quit for good. No alcohol. She does regularly use marijuana for pain control. Healthcare proxy is Melly Chtaman. She has been on disability due to her Crohn's disease. REVIEW OF SYSTEMS: See history of present illness and past medical history. The remainder of a 13-system review was completed. She acknowledges a 10-pound weight loss over the last 6 months. PHYSICAL EXAMINATION GENERAL: Well developed, somewhat cachectic, appearing stated age. Mental Status: No acute distress. Alert and oriented x3. VITAL SIGNS: Temperature 97.5, pulse 87, respiration rate 16, oxygenation 99% on room air, blood pressure 148/60. HEENT: Normocephalic, atraumatic. Oropharynx is clear. Moist mucous membranes. LUNGS: Clear to auscultation bilaterally. HEART: Regular rate and rhythm. ABDOMEN: Active bowel sounds. Soft, nontender, nondistended. She has her ostomy intact, which looks clean. EXTREMITIES: No clubbing, cyanosis, or edema. MUSCULOSKELETAL: She has functional range of motion of all of her major joints. NEUROLOGICAL: Cranial nerves II through XII are intact. Motor testing shows 5/ 5 strength in bilateral upper and lower extremities with normal sensation. She is disorganized, however, with [id number] on the right side and slow with finger-to- nose, right greater than left. IMPRESSION: A 63-year-old woman with an acute left anterior cerebral artery ischemic infarct, who will be admitted to [facility] so that she can return to living independently. PLAN: 1. Stroke. Continue with Plavix. She will be seen by PT and OT. She will be screened by Speech Therapy to see if there is any concern for cognitive impairment that requires additional therapy. 2. Hypertension. Continue with Norvasc. 3. Nicotine dependence. Continue with the current patch and continue smoking cessation counseling. 4. Crohn's disease. Continue with sucralfate. She received her Cimzia dose today. She will receive vitamin B12 injection as well today. She is to follow up with her collection teller after discharge. f/u thiamine level drawn on acute service. 5. DVT prophylaxis: Subcutaneous heparin and MICHELLE hose. 6. Advance directives: She is a full code. Her healthcare proxy is Melly Chatman if she cannot make decisions for herself. ESTIMATED LENGTH OF STAY: Four days and then return to home. She will need a primary care provider. She is particular about who she sees and is likely to be referred to the [facility] at discharge while she searches for a more permanent primary care provider. [id number]/CPS #: [id number] WAYNE
[2018-07-25] MEDS: Sucralfate TAB* 1 GM PO SCH ×2 (15:51→20:57)
[2018-07-25] MEDS: Famotidine TAB* 20 MG PO SCH (20:57)
[2018-07-25] MEDS: Heparin VIAL(*) 5000 UNITS/ML VIAL (FIVE THOUSAND) SUBCUT SCH (20:59)
[2018-07-25] MEDS: Nicotine Patch Removal NOTE FOLLOW UP SCH (21:04)
[2018-07-26 06:22] LABS: ABS Basophils 0.1 10^3/ul (0-0.2); ABS Eosinophils 0.1 10^3/ul (0-0.6); ABS Lymphocytes 2.5 10^3/ul (1.0-4.8); ABS Monocytes 0.6 10^3/ul (0-0.8); ABS Neutrophils 3.5 10^3/ul (1.5-7.7); ABS Nucleated RBC 0 10^3/ul; Eosinophil % 1.4 %; Hematocrit 41 % (35-47); Hemoglobin 13.9 g/dl (12.0-16.0); Lymphocyte % 36.8 %; Mean Corpuscular HGB Conc 34 g/dl (31-36); Mean Corpuscular Hemoglobin 33 pg (27-31); Mean Corpuscular Volume 95 fL (80-97); Mean Platelet Volume 7.2 fL (7.4-10.4); Nucleated Red Blood Cells % 0.1; Platelet Count 144 10^3/ul (150-450); Red Blood Count 4.27 10^6/ul (4.00-5.40); Red Cell Distribution Width 13 % (10.5-15); White Blood Count 6.8 10^3/ul (3.5-10.8)
[2018-07-26] MEDS: Sucralfate TAB* 1 GM PO SCH ×4 (06:31→21:52)
[2018-07-26 06:40] LABS: Albumin 3.8 g/dL (3.2-5.2); Albumin/Globulin Ratio 1.5 (1-3); BUN/Creatinine Ratio 26.2 (8-20); Calcium 8.9 mg/dL (8.6-10.3); EGFR Non-African American 91.5 (>60); Globulin 2.5 g/dL (2-4); Potassium 3.2 mmol/L (3.5-5.0); Total Bilirubin 0.4 mg/dL (0.2-1.0); Total Protein 6.3 g/dL (6.4-8.9)
[2018-07-26] MEDS: Heparin VIAL(*) 5000 UNITS/ML VIAL (FIVE THOUSAND) SUBCUT SCH ×2 (09:22→21:48)
[2018-07-26] MEDS: Nicotine PATCH 14 MG/24 HR* PATCH TRANSDERM SCH (09:26)
[2018-07-26] MEDS: amLODIPine TAB* 5 MG PO SCH (09:29)
[2018-07-26] MEDS: Clopidogrel TAB* 75 MG PO SCH (09:31)
[2018-07-26] MEDS: Cetirizine* 10 MG TAB PO SCH (09:32)
[2018-07-26] MEDS: Famotidine TAB* 20 MG PO SCH ×2 (09:32→21:46)
[2018-07-26] MEDS ORDERED: Potassium Chlor TAB* 20 MEQ TAB.ER PO ONE (10:28)
[2018-07-26] MEDS ORDERED: Pseudoephedrine TAB* 30 MG PO PRN (10:30)
[2018-07-26 10:44] LABS: Magnesium 1.9 mg/dL (1.9-2.7)
--- NOTE | 2018-07-26 10:47 | PN ---
Progress Note Date of Service: 07/26/18 Note: SOLA WILDR was visited. Nursing and therapy notes read and reviewed. No chest pain, shortness of breath or abdominal pain. Upset family brought her a shirt with holes in it. At home chronically takes zyrtec 10mg qday and a OTC decongestant 5mg bid for congestion and preventing headaches. She is starting to feel a little congested. Current Medications: Active Medications Generic Name Dose Route Start Last Admin Trade Name Freq PRN Reason Stop Dose Admin Acetaminophen 650 mg 07/25/18 12:21 Tylenol Tab* PO Q4H PRN FEVER > 101 Amlodipine Besylate 10 mg 07/26/18 09:00 07/26/18 09:29 Norvasc Tab* PO 10 mg DAILY BEN Administration Cetirizine HCl 10 mg 07/26/18 09:00 07/26/18 09:32 Zyrtec* PO 10 mg DAILY BEN Administration Clopidogrel Bisulfate 75 mg 07/26/18 09:00 07/26/18 09:31 Plavix Tab* PO 75 mg DAILY BEN Administration Famotidine 20 mg 07/25/18 21:00 07/26/18 09:32 Pepcid Tab* PO 20 mg BID BEN Administration Heparin Sodium (Porcine) 5,000 units 07/25/18 21:00 07/26/18 09:22 Heparin Vial(*) SUBCUT 5,000 units Q12HR BEN Administration Nicotine 1 patch 07/26/18 09:00 07/26/18 09:26 Nicotine Patch 14 Mg/24 Hr* TRANSDERM 1 patch DAILY BEN Administration Pharmacy Profile Note 1 note 07/25/18 21:00 07/25/18 21:04 Nicotine Patch Removal Note* FOLLOW UP 1 note 2100 BEN Administration Potassium Chloride 40 meq 07/26/18 10:28 Klor Con Er Tab* PO 07/26/18 10:29 ONCE ONE Potassium Chloride 20 meq 07/26/18 21:00 Klor Con Er Tab* PO BID BEN Pseudoephedrine HCl 30 mg 07/26/18 10:30 Sudafed Tab* PO BID PRN CONGESTION Sucralfate 1 gm 07/25/18 16:00 07/26/18 06:31 Carafate* PO 1 gm 0630,1100,1600,2100 BEN Administration Vital Signs: Vital Signs Temp Pulse Resp BP Pulse Ox 98.2 F 74 18 114/53 100 07/26/18 06:24 07/26/18 06:24 07/26/18 08:00 07/26/18 06:24 07/26/18 08:00 Lab Results: Laboratory Results - last 24 hr 07/26/18 07/26/18 06:09 06:09 WBC 6.8 RBC 4.27 Hgb 13.9 Hct 41 MCV 95 MCH 33 H MCHC 34 RDW 13 Plt Count 144 L MPV 7.2 L Neut % (Auto) 52.3 Lymph % (Auto) 36.8 [place] % (Auto) 8.2 Eos % (Auto) 1.4 Baso % (Auto) 1.3 Absolute Neuts (auto) 3.5 Absolute Lymphs (auto) 2.5 Absolute Monos (auto) 0.6 Absolute Eos (auto) 0.1 Absolute Basos (auto) 0.1 Absolute Nucleated RBC 0 Nucleated RBC % 0.1 Sodium 138 Potassium 3.2 L Chloride 108 Carbon Dioxide 24 Anion Gap 6 BUN 17 Creatinine 0.65 Est GFR ( Amer) 110.7 Est GFR (Non-Af Amer) 91.5 BUN/Creatinine Ratio 26.2 H Glucose 94 Calcium 8.9 Total Bilirubin 0.40 AST 20 ALT 16 Alkaline Phosphatase 55 Total Protein 6.3 L Albumin 3.8 Globulin 2.5 Albumin/Globulin Ratio 1.5 Exam: GEN: no acute distress. Alert and appropriate. LUNGS: clear to auscultation bilaterally. CV: regular rate and rhythm ABD: + bowel sounds, soft, non-tender, non-distended. Ileostomy intact. EXT: no edema. NEURO: 5/5 bue and ble with normal sensation but decreased coordination RLE. Assessment/Plan: 63yo woman with ischemic stroke and right hemiplegia, now with primarily decreased coordination in right leg. 1. Stroke: Continue plavix. f/u thiamine level ordered on acute service. f/u with Dr. Amezquita after d/c. PT/OT. Speech not needed. 2. Hypertension: norvasc 3. Congestion: zyrtec 10mg qday. Added sudafed prn and advised her it may increase BP. 4. Crohns Disease: ostomy care. s/p Cimzia and Vit B12 injections on 07/25. Short bowel issues with poor absorption. Low potassium - supplement today and schedule regular doses. She uses a Ca/Mg/Zn supplement at home which I asked her to have family bring in. Check Mg level today and replace if needed. P3 in AM. 5. DVT ppx: sc heparin 6. Advanced Directives: full code. Melly Chatman is surrogate decision maker if needed. 7. Estimated LOS: anticipate d/c on 07/2907/26/18 10:42
[2018-07-26] MEDS: Potassium Chlor TAB* 20 MEQ TAB.ER PO SCH (21:46)
[2018-07-26] MEDS: Nicotine Patch Removal NOTE FOLLOW UP SCH (21:51)
[2018-07-27] MEDS: Sucralfate TAB* 1 GM PO SCH ×4 (06:25→21:08)
[2018-07-27 06:58] LABS: BUN/Creatinine Ratio 23.6 (8-20); EGFR Non-African American 81.3 (>60); Potassium 4.2 mmol/L (3.5-5.0)
--- NOTE | 2018-07-27 09:41 | PN ---
Progress Note Date of Service: 07/27/18 Note: SOLA WILDR was visited. Nursing notes read and reviewed. Sad about selling her horse. No chest pain, shortness of breath or abdominal pain. Current Medications: Active Medications Generic Name Dose Route Start Last Admin Trade Name Frenomi PRN Reason Stop Dose Admin Acetaminophen 650 mg 07/25/18 12:21 Tylenol Tab* PO Q4H PRN FEVER > 101 Amlodipine Besylate 10 mg 07/26/18 09:00 07/26/18 09:29 Norvasc Tab* PO 10 mg DAILY BEN Administration Cetirizine HCl 10 mg 07/26/18 09:00 07/26/18 09:32 Zyrtec* PO 10 mg DAILY BEN Administration Clopidogrel Bisulfate 75 mg 07/26/18 09:00 07/26/18 09:31 Plavix Tab* PO 75 mg DAILY BEN Administration Famotidine 20 mg 07/25/18 21:00 07/26/18 21:46 Pepcid Tab* PO 20 mg BID BEN Administration Heparin Sodium (Porcine) 5,000 units 07/25/18 21:00 07/26/18 21:48 Heparin Vial(*) SUBCUT 5,000 units Q12HR BEN Administration Nicotine 1 patch 07/26/18 09:00 07/26/18 09:26 Nicotine Patch 14 Mg/24 Hr* TRANSDERM 1 patch DAILY BEN Administration Pharmacy Profile Note 1 note 07/25/18 21:00 07/26/18 21:51 Nicotine Patch Removal Note* FOLLOW UP 1 note 2100 BEN Administration Pseudoephedrine HCl 30 mg 07/26/18 10:30 Sudafed Tab* PO BID PRN CONGESTION Sucralfate 1 gm 07/25/18 16:00 07/27/18 06:25 Carafate* PO 1 gm 0630,1100,1600,2100 BEN Administration Vital Signs: Vital Signs Temp Pulse Resp BP Pulse Ox 98.7 F 72 16 111/65 98 07/27/18 06:26 07/27/18 06:26 07/27/18 06:26 07/27/18 06:26 07/27/18 06:26 Lab Results: Laboratory Results - last 24 hr 07/26/18 07/27/18 06:09 06:22 Sodium 138 138 Potassium 3.2 L 4.2 Chloride 108 108 Carbon Dioxide 24 26 Anion Gap 6 4 BUN 17 17 Creatinine 0.65 0.72 Est GFR ( Amer) 110.7 98.4 Est GFR (Non-Af Amer) 91.5 81.3 BUN/Creatinine Ratio 26.2 H 23.6 H Glucose 94 91 Calcium 8.9 9.0 Magnesium 1.9 Total Bilirubin 0.40 AST 20 ALT 16 Alkaline Phosphatase 55 Total Protein 6.3 L Albumin 3.8 Globulin 2.5 Albumin/Globulin Ratio 1.5 Exam: GEN: no acute distress. Alert and appropriate. LUNGS: clear to auscultation bilaterally. CV: regular rate and rhythm ABD: + bowel sounds, soft, non-tender, non-distended. Ileostomy intact. EXT: no edema. NEURO: 5/5 bue and ble with normal sensation but decreased coordination RLE which is improving. Assessment/Plan: 63yo woman with ischemic stroke and right hemiplegia, now with primarily decreased coordination in right leg. 1. Stroke: Continue plavix. f/u with Dr. Amezquita after d/c. PT/OT. Speech not needed. 2. Hypertension: norvasc 3. Congestion: zyrtec 10mg qday and sudafed prn and advised her it may increase BP. 4. Crohns Disease: ostomy care. s/p Cimzia and Vit B12 injections on 07/25. Short bowel issues with poor absorption. Low potassium resolved with supplement. Mg normal 07/26. She uses a Ca/Mg/Zn supplement at home. Thiamine and folate were normal on acute service. 5. DVT ppx: sc heparin 6. Advanced Directives: full code. Melly Chatman is surrogate decision maker if needed. 7. Estimated LOS: anticipate d/c on 07/2907/27/18 09:42
[2018-07-27] MEDS: Heparin VIAL(*) 5000 UNITS/ML VIAL (FIVE THOUSAND) SUBCUT SCH ×2 (09:46→21:08)
[2018-07-27] MEDS: Nicotine PATCH 14 MG/24 HR* PATCH TRANSDERM SCH (09:48)
[2018-07-27] MEDS: Clopidogrel TAB* 75 MG PO SCH (09:55)
[2018-07-27] MEDS: Potassium Chlor TAB* 20 MEQ TAB.ER PO SCH (09:55)
[2018-07-27] MEDS: Famotidine TAB* 20 MG PO SCH ×2 (09:55→21:07)
[2018-07-27] MEDS: Cetirizine* 10 MG TAB PO SCH (09:56)
[2018-07-27] MEDS: amLODIPine TAB* 5 MG PO SCH (09:56)
[2018-07-27] MEDS: Nicotine Patch Removal NOTE FOLLOW UP SCH (23:07)
[2018-07-28] MEDS: Sucralfate TAB* 1 GM PO SCH ×4 (06:11→21:23)
[2018-07-28] MEDS: Cetirizine* 10 MG TAB PO SCH (11:20)
[2018-07-28] MEDS: Potassium Chlor TAB* 20 MEQ TAB.ER PO SCH (11:20)
[2018-07-28] MEDS: amLODIPine TAB* 5 MG PO SCH (11:20)
[2018-07-28] MEDS: Clopidogrel TAB* 75 MG PO SCH (11:20)
[2018-07-28] MEDS: Famotidine TAB* 20 MG PO SCH ×2 (11:21→21:23)
[2018-07-28] MEDS: Nicotine PATCH 14 MG/24 HR* PATCH TRANSDERM SCH (11:22)
[2018-07-28] MEDS: Heparin VIAL(*) 5000 UNITS/ML VIAL (FIVE THOUSAND) SUBCUT SCH ×2 (11:33→21:25)
--- NOTE | 2018-07-28 18:22 | PN ---
Progress Note Date of Service: 07/28/18 Note: SOLA WILDR was visited. Therapy notes read and reviewed. She seems ready for discharge tomorrow. She was interested in getting a new primary care doctor and pursuing medical marijuana Current Medications: Active Medications Generic Name Dose Route Start Last Admin Trade Name Freq PRN Reason Stop Dose Admin Acetaminophen 650 mg 07/25/18 12:21 Tylenol Tab* PO Q4H PRN FEVER > 101 Amlodipine Besylate 10 mg 07/26/18 09:00 07/28/18 11:20 Norvasc Tab* PO 10 mg DAILY BEN Administration Cetirizine HCl 10 mg 07/26/18 09:00 07/28/18 11:20 Zyrtec* PO 10 mg DAILY BEN Administration Clopidogrel Bisulfate 75 mg 07/26/18 09:00 07/28/18 11:20 Plavix Tab* PO 75 mg DAILY BEN Administration Famotidine 20 mg 07/25/18 21:00 07/28/18 11:21 Pepcid Tab* PO 20 mg BID BEN Administration Heparin Sodium (Porcine) 5,000 units 07/25/18 21:00 07/28/18 11:33 Heparin Vial(*) SUBCUT 5,000 units Q12HR BEN Administration Nicotine 1 patch 07/26/18 09:00 07/28/18 11:22 Nicotine Patch 14 Mg/24 Hr* TRANSDERM 1 patch DAILY BEN Administration Pharmacy Profile Note 1 note 07/25/18 21:00 07/27/18 23:07 Nicotine Patch Removal Note* FOLLOW UP Not Given 2100 [facility] Potassium Chloride 20 meq 07/28/18 09:00 07/28/18 11:20 Klor Con Er Tab* PO 20 meq DAILY BEN Administration Pseudoephedrine HCl 30 mg 07/26/18 10:30 Sudafed Tab* PO BID PRN CONGESTION Sucralfate 1 gm 07/25/18 16:00 07/28/18 16:22 Carafate* PO 1 gm 0630,1100,1600,2100 BEN Administration Vital Signs: Vital Signs Temp Pulse Resp BP Pulse Ox 98.5 F 88 18 157/78 100 07/28/18 16:18 07/28/18 16:18 07/28/18 16:18 07/28/18 16:18 07/28/18 16:18 Exam: GENERAL: no acute distress. Alert and appropriate. LUNGS: clear to auscultation bilaterally. HEART: regular rate and rhythm ABDOMEN: + bowel sounds, soft, non-tender, non-distended. Ileostomy intact. EXTREMITIES: no edema. NEUROLOGIC: 5/5 bue and ble with normal sensation but decreased coordination RLE which is improving. Assessment/Plan: 1. Stroke: Continue plavix. f/u with Dr. Amezquita after d/c. PT/OT. Speech not needed. 2. Hypertension: norvasc 3. Congestion: zyrtec 10mg qday and sudafed prn and advised her it may increase BP. 4. Crohns Disease: ostomy care. s/p Cimzia and Vit B12 injections on 07/25. Short bowel issues with poor absorption. Uses a Ca/Mg/Zn supplement at home. 5. DVT Prophylaxis: sc heparin 6. Advanced Directives: full code. Melly Chatman is surrogate decision maker if needed. 7. Estimated LOS: anticipate d/c on 07/2907/28/18 18:23
[2018-07-28] MEDS: Nicotine Patch Removal NOTE FOLLOW UP SCH (21:28)
[2018-07-29 05:55] VITALS: BP 134/59
[2018-07-29] MEDS: Sucralfate TAB* 1 GM PO SCH ×2 (07:02→12:12)
[2018-07-29] MEDS: Clopidogrel TAB* 75 MG PO SCH (10:11)
[2018-07-29] MEDS: Cetirizine* 10 MG TAB PO SCH (10:11)
[2018-07-29] MEDS: Famotidine TAB* 20 MG PO SCH (10:11)
[2018-07-29] MEDS: amLODIPine TAB* 5 MG PO SCH (10:11)
[2018-07-29] MEDS: Potassium Chlor TAB* 20 MEQ TAB.ER PO SCH (10:11)
[2018-07-29] MEDS: Heparin VIAL(*) 5000 UNITS/ML VIAL (FIVE THOUSAND) SUBCUT SCH (10:11)
[2018-07-29] MEDS: Nicotine PATCH 14 MG/24 HR* PATCH TRANSDERM SCH (10:18)
--- NOTE | 2018-07-29 23:04 | DS ---
CC: Dr. Chika Castillo at [facility] * DISCHARGE SUMMARY: DATE OF ADMISSION: 07/25/18 DATE OF DISCHARGE: 07/29/18 DISCHARGE DIAGNOSES: 1. Left-sided stroke with right-sided weakness. 2. Crohn disease, status post partial colectomy. 3. Status post bilateral hip replacements. 4. Status post cervical fusion, remote. 5. Hypertension. 6. Neuropathic pain. HISTORY OF ILLNESS AND HOSPITAL COURSE: For a complete history and the events leading up to her rehab stay, please see the history and physical dictated by Dr. Philomena Mcmillan on 07/25/18. While on the rehab unit, the patient was noted to be hypokalemic on routine blood draws. She was started on a potassium supplement. Her potassium quickly normalized. She was maintained on Plavix for secondary stroke prevention. She had an allergic reaction to aspirin, so was not able to take it. The patient otherwise was fairly stable from a medical point of view. The patient was maintained on heparin for DVT prophylaxis. Her blood pressure was controlled with Norvasc. The patient otherwise was medically stable. She was seen by Physical Therapy and Occupational Therapy and made good gains with both disciplines. With physical therapy at the time of admission, the patient required contact guard to do a transfer. She was able to ambulate with contact guard about 300 feet. With occupational therapy at the time of admission, the patient required supervision for toileting and toilet transfers, supervision for dressing and bathing. By the time of discharge, the patient was independent in all activities. She was independent, ambulating 300 feet, independent in and out of bed, independent transfers, independent with her activities of daily living. The patient was discharged home on 07/29/18. DISCHARGE DIET: Regular. DISCHARGE MEDICATIONS: 1. Plavix 75 mg once daily. 2. Zyrtec 10 mg daily. 3. Amlodipine 10 mg daily. 4. Sudafed 30 mg twice daily as needed. 5. Carafate 1 g before meals and at bedtime. 6. Zantac 150 mg twice daily. SERVICES AFTER DISCHARGE: Through visiting nurse service, she will have home nursing, home physical therapy. Follow up with her joiner helper, Dr. Jose Lopez, as well as her new primary care doctor, Dr. Chika Castillo. She will also follow up with Dr. Amezquita as needed. TIME SPENT: Time for this discharge was approximately 55 minutes, greater than half of that was spent [id number] with the patient explaining post-rehab medications, services and therapies. [id number]/[facility] #: [id number] WAY[place]
== END 2018-07-29 13:00 | disposition home health service (06) | DRG 57 ==
LOC: PMRU 10:37
PROVIDERS: ADMIT Physical Medicine & Rehabilitation; ATTEND Physical Medicine & Rehabilitation
PROC: F07Z5ZZ Bed Mobility Treatment (ICD-10-PCS; principal; 2018-07-25)
PROC: F07Z8ZZ Transfer Training Treatment (ICD-10-PCS; 2018-07-25)
PROC: F07Z9ZZ Gait Training/Functional Ambulation Treatment (ICD-10-PCS; 2018-07-25)
DX: I69.351 Hemiplegia and hemiparesis following cerebral infarction affecting right dominant side (principal); K50.90 Crohn's disease, unspecified, without complications; E46 Unspecified protein-calorie malnutrition; Z68.1 Body mass index [BMI] 19.9 or less, adult; I10 Essential (primary) hypertension; M79.2 Neuralgia and neuritis, unspecified; E87.6 Hypokalemia; F12.90 Cannabis use, unspecified, uncomplicated; Z96.643 Presence of artificial hip joint, bilateral; F17.210 Nicotine dependence, cigarettes, uncomplicated; M19.90 Unspecified osteoarthritis, unspecified site; Z93.3 Colostomy status; Z79.899 Other long term (current) drug therapy; Z88.6 Allergy status to analgesic agent; Z88.2 Allergy status to sulfonamides; Z88.7 Allergy status to serum and vaccine; Z88.8 Allergy status to other drugs, medicaments and biological substances; Z91.048 Other nonmedicinal substance allergy status; Z82.49 Family history of ischemic heart disease and other diseases of the circulatory system; Z80.52 Family history of malignant neoplasm of bladder; Z80.3 Family history of malignant neoplasm of breast; Z80.1 Family history of malignant neoplasm of trachea, bronchus and lung
CPT/HCPCS: 36415; 80048; 80053; 83735; 85025; A9270-GY; J1644; J3420

== ENCOUNTER 2018-11-24 12:40 | Observation (INO) | payer MEDICARE, MEDICAID ==
--- NOTE | 2018-11-24 14:49 | ED ---
Headache - HPI Summary HPI Summary: Patient is a 63 y/o F presenting to ED via EMS with complaints of headache and neck pain. She states that a few weeks ago, she had a mechanical fall and struck her head against a step. She states that headache and neck pain has been present since with a recent exacerbation of pain within the past four days. Patient also reports experiencing right shoulder pain for the past six weeks and onset of N/V yesterday. Patient reports tingling in right hand and right foot since stroke 07/22/18, notes more tingling of RUE since this morning. PMHx of HTN, HLD, PNA, Crohns disease, GERD, gall bladder disease, irritable bowel syndrome, ileostomy, kidney infection, arthritis, migraines, anxiety. PSHx of neck fusion, ulnar nerve decompression. FMHx of cardiac disease. She is a former smoker, uses marijuana, denies alcohol usage. In the room, she rates pain 8-9/10, nothing is noted to aggravate/alleviate Sx. Home medications and allergies are reviewed. Patient is not eligible for TPA. - History Of Current Complaint Chief Complaint: EDHeadache Stated Complaint: HEADACHE PER EMS Hx Obtained From: Patient Onset/Duration: Started hours ago - INCREASED RUE TINGLING AND WEAKNESS SINCE THIS MORNING, Started days ago - N/V ONSET YESTERDAY, Started weeks ago - HEAD INJURY A FEW WEEKS AGO, RIGHT SHOULDER PAIN SIX WEEKS AGO, Still Present, Worse Since Initially Headache Was: Moderate Currently Pain Is: Current Pain Scale(0-10)= - 8-9/10, Severe Timing: Constant, Days - N/V ONSET YESTERDAY, Weeks - HEAD INJURY A FEW WEEKS AGO, RIGHT SHOULDER PAIN SIX WEEKS AGO Aggravating Factor: Nothing Allevating Factors: Nothing Associated Signs And Symptoms: Nausea, Vomiting, Neck Pain, Other (Noted In Comments) - POSITIVE - RIGHT SHOULDER PAIN, HEAD INJURY; INCREASED RUE TINGLING - Allergies/Home Medications Allergies/Adverse Reactions: Allergies Allergy/AdvReac Type Severity Reaction Status Date / Time aspirin Allergy Bleeding Verified 11/24/18 14:20 infliximab [From Remicade] Allergy Tachycardia Verified 11/24/18 14:20 paroxetine [From Paxil] Allergy Unknown Verified 11/24/18 14:20 Reaction Details sulfasalazine Allergy Headache Verified 11/24/18 14:20 [From Azulfidine] Tetanus Vaccines and Toxoid Allergy Swelling Verified 11/24/18 14:20 adhesive tapes (plastic) Allergy Intermediate Rash And Uncoded 11/24/18 14:20 Itching Home Medications: Home Medications Calcium Carb/Mag Ox/Zinc Sulf [Calcium & Magnesium + Zin 334-134-5 mg] 1 tab PO BID 11/24/18 [History Confirmed 11/24/18] Diphenoxylat/Atrop 2.5-0.025M* [Lomotil TAB*] 1 - 2 tab PO Q6HR PRN 11/24/18 [ History Confirmed 11/24/18] Omeprazole CAP (NF) [Prilosec CAP* 20 MG] 20 mg PO DAILY 11/24/18 [History Confirmed 11/24/18] Pseudoephedrine TAB* [Sudafed TAB*] 30 mg PO DAILY 11/24/18 [History Confirmed 11/24/18] PMH/Surg Hx/FS Hx/Imm Hx Endocrine/Hematology History: Reports: Hx Blood Transfusions - platelets Denies: Hx Diabetes Cardiovascular History: Reports: Hx Angina, Hx Embolism - From central line, Hx Hypercholesterolemia, Hx Hypertension, Other Cardiovascular Problems/Disorders - Scarlet fever Denies: Hx Coronary Artery Disease, Hx Myocardial Infarction, Hx Pacemaker/ ICD, Hx Valvular Heart Disease Respiratory History: Reports: Hx Pneumonia, Hx Seasonal Allergies Denies: Hx Asthma, Hx Chronic Obstructive Pulmonary Disease (COPD) GI History: Reports: Hx Crohn's Disease - SINCE 1970s, Hx Gall Bladder Disease, Hx Gastroesophageal Reflux Disease - ON DAILY MEDS, Hx Irritable Bowel - CROHN' S DISEASE, Hx Ileostomy, Other GI Disorders - ILLEOSTOMY Denies: Hx Cirrhosis, Hx Diverticulosis History: Reports: Hx Kidney Infection - PT STATES 3 WEEKS AGO WAS ON CIPRO AND SEEN BY DR. LOPEZ Denies: Hx Dialysis, Hx Renal Disease Musculoskeletal History: Reports: Hx Arthritis - MOST JOINTS, OSTEO, Hx Back Problems, Hx Orthopedic Injury - hairline fracture 4th lumbar, Other Musculoskeletal History - Bilateral hip replacements, Sensory History: Reports: Hx Cataracts - BILAT, NO SURGERY YET, Hx Contacts or Glasses Denies: Hx Hearing Aid Opthamlomology History: Reports: Hx Cataracts - BILAT, NO SURGERY YET, Hx Contacts or Glasses Neurological History: Reports: Hx Headaches, Hx Migraine - PT STATES HASNT HAD SINCE NECK FUSION, Hx Nerve Disease - NO Dx YET, NUMBNESS FEET Psychiatric History: Reports: Hx Anxiety Denies: Hx Panic Disorder - Cancer History Hx Chemotherapy: No Hx Radiation Therapy: No - Surgical History Surgery Procedure, Year, and Place: BILAT THR [facility], W/ REVISIONS OF BOTH 2012 [facility]. 1990 C-4,5,6,7 FUSION X3 [facility]. RECTUM REMOVED [facility]--- CATARACTS BILAL EYES. CHOLECYSTECTOMY. SEVERAL SMALL BOWEL EXCISIONS W/ COLOSTOMY [facility]. YOUNG CHILD FX OF RIGHT CLAVICLE. 01/2015 RT HAND/ LEFT HAND AND ELBOWS CARPAL TUNNEL RELEASE,ULNAR NERVE. DECOMPRESSION [facility]. RIGHT ROTATOR CUFF RESURFACED Hx Anesthesia Reactions: No Infectious Disease History: No Infectious Disease History: Denies: Hx Clostridium Difficile, Hx Hepatitis, Hx Human Immunodeficiency Virus (HIV), Hx of Known/Suspected MRSA, Hx Shingles, Hx Tuberculosis, History Other Infectious Disease, Traveled Outside the [place] in Last 30 Days - Family History Known Family History: Positive: Cardiac Disease - CHF (mother) Family History: FHx of breast cancer - Social History Alcohol Use: None Substance Use Type: Reports: Marijuana Substance Use Comment - Amount & Last Used: muliple times a day, self medicating for chrones disease Smoking Status (MU): Former Smoker Type: Cigarettes Amount Used/How Often: 1PPEVERY 2 WEEKS, WAS 1PPD 1974..RECENTLY TRYING TO STOP Length of Time of Smoking/Using Tobacco: 30+ YEARS Have You Smoked in the Last Year: Yes Review of Systems Constitutional: Other - POSITIVE - MECHANICAL FALL Positive: Vomiting, Nausea Musculoskeletal: Other - POSITIVE - RIGHT SHOULDER PAIN; NECK PAIN Neurological: Other - POSITIVE - HEAD INJURY; INCREASED RUE TINGLING Positive: Headache All Other Systems Reviewed And Are Negative: Yes Physical Exam - Summary Physical Exam Summary: VITAL SIGNS: Reviewed. GENERAL: Patient is a well-developed and nourished female who is lying comfortable in the stretcher. Patient is not in any acute respiratory distress. HEAD AND FACE: No signs of trauma. No ecchymosis, hematomas or skull depressions. No sinus tenderness. EYES: PERRLA, EOMI x 2, No injected conjunctiva, no nystagmus. EARS: Hearing grossly intact. Ear canals and tympanic membranes are within normal limits. MOUTH: Oropharynx within normal limits. NECK: Supple, trachea is midline, no adenopathy, no JVD, no carotid bruit, neck with full ROM. C-spine tenderness along right external sternocleidmastoid muscle. CHEST: Symmetric, no tenderness at palpation LUNGS: Clear to auscultation bilaterally. No wheezing or crackles. CVS: Regular rate and rhythm, S1 and S2 present, no murmurs or gallops appreciated. ABDOMEN: Soft, non-tender. No signs of distention. No rebound no guarding, and no masses palpated. Bowel sounds are normal. EXTREMITIES: FROM in all major joints, no edema, no cyanosis or clubbing. NEURO: Alert and oriented x 3. No acute neurological deficits. Speech is normal and follows commands. GCS 15. NIH 0. SKIN: Dry and warm Triage Information Reviewed: Yes Vital Signs On Initial Exam: Initial Vitals Temp Pulse Resp BP Pulse Ox 96.9 F 96 16 144/78 97 11/24/18 12:42 11/24/18 12:42 11/24/18 12:42 11/24/18 12:42 11/24/18 12:42 Vital Signs Reviewed: Yes - [place] Coma Scale Best Eye Response: 4 - Spontaneous Best Motor Response: 6 - Obeys Commands Best Verbal Response: 5 - Oriented Coma Scale Total: 15 Diagnostics - Vital Signs Vital Signs Temp Pulse Resp BP Pulse Ox 11/24/18 14:18 89 150/71 95 11/24/18 12:42 96.9 F 96 16 144/78 97 - Laboratory Result Diagrams: 11/25/18 05:01 11/25/18 05:01 Lab Statement: Any lab studies that have been ordered have been reviewed, and results considered in the medical decision making process. - Radiology RIGHT SHOULDER X-RAY Radiology Interpretation Completed By: Radiologist Summary of Radiographic Findings: Right shoulder x-ray IMPRESSION: NO EVIDENCE OF FRACTURE. THIS REPORT WAS REVIEWED BY DR. GARNETT. BRAIN MRI Radiology Interpretation Completed By: Radiologist Summary of Radiographic Findings: IMPRESSION: Acute infarct involving the right parietal lobe in the distribution of right. middle cerebral artery. THIS REPORT WAS REVIEWED BY DR. GARNETT. - CT BRAIN CT CT Interpretation Completed By: Radiologist Summary of CT Findings: BRAIN CT IMPRESSION: NO ACUTE INTRACRANIAL PATHOLOGY. SUBACUTE TO CHRONIC INFARCT OF THE RIGHT MCA DISTRIBUTION. THIS REPORT WAS REVIEWED BY DR. GARNETT. CERVICAL SPINE CT CT Interpretation Completed By: Radiologist Summary of CT Findings: CERVICAL SPINE IMPRESSION: Postoperative changes with fusion C4-C7. Degenerative disc disease is noted. Degenerative disc disease with grade 1 spondylolisthesis of C3 on 4 is noted which is. unchanged from prior exam. THIS REPORT WAS REVIEWED BY DR. GARNETT. - EKG 1719 Cardiac Rate: NL - rate of 86 BPM EKG Rhythm: Sinus Rhythm EKG Comparison: No Significant Change - similar to EKG done 07/22/18. Summary of EKG Findings: EKG showed sinus rhythm with rate of 86 BPM, no ST elevation, similar to EKG done 07/22/18. 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/Close Eyes and Farrowing Worker/Release Non-Paretic Hand: Both Correctly Best Gaze (Only Horizontal Eye Movement): Normal Visual Field Testing: No Visual Loss Facial Paresis-Pt to Smile & Close Eyes or Grimace Symmetry: Normal/Symmetrical Motor Function - Right Arm: No Drift-Holds 10 Seconds Motor Function - Left Arm: No Drift-Holds 10 Seconds Motor Function - Right Leg: No Drift-Holds 10 Seconds Motor Function - Left Leg: No Drift-Holds 10 Seconds Limb Ataxia-Must be out of Proportion to Weakness Present: Absent Sensory (Use Pinprick to Test Arms/Legs/Trunk/Face): Normal Best Language (Describe Picture, Name Items): No Aphasia Dysarthria (Read Several Words): Normal Extinction and Inattention: No Abnormality Total Score: 0 Headache Course/Dx - Course Assessment/Plan: This patient is a 63-year-old female who presents to the emergency department with a chief complaint of headache and neck pain. She reports that she fell a couple weeks ago and since then the patient is having neck pain or headache. The patient also reports that she has some right upper extremity tingling but no weakness. Head CT IMPRESSION: NO ACUTE INTRACRANIAL PATHOLOGY. SUBACUTE TO CHRONIC INFARCT OF THE RIGHT MCA DISTRIBUTION. C spine CT IMPRESSION: Postoperative changes with fusion C4-C7. Degenerative disc disease is noted. Degenerative disc disease with grade 1 spondylolisthesis of C3 on 4 is noted which is. unchanged from prior exam. I discussed my physical exam findings and test results with and Dr. Patino from neurology and he recommends for the patient to get an MRI with and without contrast. Brain MRI impression: acute infarct involving the right parietal lobe in the distribution of the right middle cerebral artery. Patient was given Plavix. I discussed the case with Dr. Patino the MRI results and he recommends for the patient to be admitted to the hospital services. I discussed my physical exam and findings with Dr. Lara from the hospital services and he accepted the patient for admission to her services. However she requested a CTA of the head and neck first before admission. The patient was awaiting for the CTA. Patient is signed out to Dr. Ojeda at shift change pending CTA HEAD. If it is normal, patient will remain admitted, if not, patient will likely require transfer. - Diagnoses Provider Diagnoses: Ischemic cerebrovascular accident (CVA) - Physician Notifications Discussed Care Of Patient With: Dimitrios Patino Time Discussed With Above Provider: 16:55 Instructed by Provider To: Other - Patient's case had been discussed with Dr. Patino, Dr. Patino recommends MRI. 2017 - MRI results were discussed with Dr. Patino, Dr. Patino recommends admission for the patient as well as CTA HEAD. 2024 - Patient's case was discussed with Dr. Lara, Dr. Lara accepts for admission. - Critical Care Time Critical Care Time: 75-104 min Discharge - Sign-Out/Discharge Documenting (check all that apply): Sign-Out Patient Signing out patient TO: Deysi Ojeda - Discharge Plan Condition: Stable Disposition: ADMITTED TO [facility] - Billing Disposition and Condition Condition: STABLE Disposition: Admitted to [facility] - Attestation Statements Document Initiated by Alexis: Yes Documenting Scribe: ERIKA ENRIQUE Provider For Whom Alexis is Documenting (Include Credential): MING GARNETT MD Scribe Attestation: I, ERIKA ENRIQUE, scribed for MING GARNETT MD on 11/25/18 at 1044. Scribe Documentation Reviewed: Yes Provider Attestation: The documentation as recorded by the ERIKA kimball accurately reflects the service I personally performed and the decisions made by me, MING GARNETT MD Status of Scribe Document: Viewed
[2018-11-24 16:50] LABS: ABS Basophils 0.1 10^3/ul (0-0.2); ABS Lymphocytes 2.3 10^3/ul (1.0-4.8); ABS Monocytes 0.5 10^3/ul (0-0.8); ABS Neutrophils 8.9 10^3/ul (1.5-7.7); Hematocrit 44 % (35-47); Hemoglobin 15.3 g/dL (12.0-16.0); Lymphocyte % 19.6 %; Mean Corpuscular HGB Conc 35 g/dL (31-36); Mean Corpuscular Hemoglobin 32 pg (27-31); Mean Corpuscular Volume 93 fL (80-97); Mean Platelet Volume 7.1 fL (7.4-10.4); Nucleated Red Blood Cells % 0.1; Platelet Count 213 10^3/uL (150-450); Red Blood Count 4.76 10^6 /uL (3.70-4.87); Red Cell Distribution Width 13 % (10.5-15); White Blood Count 11.9 10^3/uL (3.5-10.8)
[2018-11-24 16:59] LABS: INR 0.93 (0.82-1.09)
[2018-11-24 17:10] LABS: ALT 16 U/L (7-52); AST 22 U/L (13-39); Albumin 4.8 g/dL (3.2-5.2); Albumin/Globulin Ratio 1.3 (1-3); Alkaline Phosphatase 64 U/L (34-104); Anion Gap 10 mmol/L (2-11); BUN/Creatinine Ratio 14.3 (8-20); Blood Urea Nitrogen 9 mg/dL (6-24); CO2 Carbon Dioxide 24 mmol/L (22-32); Chloride 102 mmol/L (101-111); EGFR African American 114.8 (>60); EGFR Non-African American 94.8 (>60); Globulin 3.6 g/dL (2-4); Glucose 117 mg/dL (70-100); Potassium 3.1 mmol/L (3.5-5.0); Sodium 136 mmol/L (135-145); Total Protein 8.4 g/dL (6.4-8.9); Troponin I 0.01 ng/mL (<0.04)
[2018-11-24 17:15] LABS: Alcohol < 10 mg/dL (<10)
[2018-11-24] MEDS ORDERED: Morphine 4 MG/ML VIAL (1 ml) 4 MG/ML VIAL IV ONE (17:19)
[2018-11-24] MEDS ORDERED: Ondansetron INJ* 2 MG/ML VIAL IV ONE (17:19)
[2018-11-24] MEDS ORDERED: Gadoteridol* (CONTRAST) 279.3 MG/ML 10 ML IV ONE (18:00)
[2018-11-24] MEDS ORDERED: Potassium Chlor TAB* 20 MEQ TAB.ER PO ONE (19:03)
[2018-11-24] MEDS ORDERED: Clopidogrel TAB* 75 MG PO ONE (20:24)
[2018-11-24] MEDS ORDERED: Aspirin 81 mg CHEW TAB* 81 MG TAB.CHEW PO ONE (20:33)
[2018-11-24] MEDS ORDERED: Iodixanol* (CONTRAST) 320 MG/ML 100 ML SDV IV ONE (21:29)
--- NOTE | 2018-11-24 22:17 | ED ---
Progress - Progress Note Progress Note: The patient is a 63 year old female who is presenting to the [facility] and is a sign out from Dr. Keating. The patient is received by Dr. Ojeda and is currently pending a Head CTA. - Results/Orders Results/Orders: Head and Neck CTA results Head CTA as per radiologist report shows No acute abnormality. Neck CTA as per radiologist report shows No acute findings. The ED Physician has reviewed this radiology report. Course/Dx - Course Course Of Treatment: The patient is a 63 year old female who is presenting to the [facility] and is a sign out from Dr. Keating. The patient is received by Dr. Ojeda and is currently pending a Head CTA. Upon receiving a Head CTA, the patient will be Admitted to the [facility]. The dx will be CVA. - Diagnoses Provider Diagnoses: Ischemic cerebrovascular accident (CVA) - Critical Care Time Critical Care Time: 75-104 min Discharge - Sign-Out/Discharge Documenting (check all that apply): Patient Departure - ADMITTED - Discharge Plan Condition: Stable Disposition: ADMITTED TO [facility] - Attestation Statements Document Initiated by Scribe: Yes Documenting Scribe: Jhon Davis Provider For Whom Scribe is Documenting (Include Credential): Dr. Deysi Ojeda Scribe Attestation: I, Jhon Davis, scrbety for Dr. Deysi Ojeda on 11/25/18 at 0629. Status of Scribe Document: Ready
[2018-11-24] MEDS ORDERED: Acetaminophen TAB* 325 MG PO PRN (23:52)
[2018-11-24] MEDS ORDERED: Al Hydrox/Mg Hydrox/Simet LIQ* 30 ML UDC PO PRN (23:52)
[2018-11-24] MEDS ORDERED: Diphenoxylat/Atrop 2.5-0.025M* 1 TAB PO PRN (23:54)
[2018-11-25] MEDS ORDERED: Clopidogrel TAB* 300 MG PO ONE (00:13)
[2018-11-25] MEDS ORDERED: Morphine 4 MG/ML VIAL (1 ml) 4 MG/ML VIAL IV PRN (00:13)
[2018-11-25] MEDS ORDERED: Clopidogrel TAB* 75 MG PO ONE (01:03)
[2018-11-25] MEDS: Cetirizine* 10 MG TAB PO SCH ×2 (01:13→08:31)
[2018-11-25] MEDS: Sucralfate TAB* 1 GM PO SCH ×4 (01:13→17:19)
[2018-11-25] MEDS: Ondansetron INJ* 2 MG/ML VIAL IV PRN ×2 (02:13→08:32)
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
[2018-11-25] MEDS: Heparin VIAL(*) 5000 UNITS/ML VIAL (FIVE THOUSAND) SUBCUT SCH ×2 (05:51→13:43)
[2018-11-25 06:04] LABS: ABS Lymphocytes 2.2 10^3/ul (1.0-4.8); ABS Monocytes 0.9 10^3/ul (0-0.8); ABS Neutrophils 6.3 10^3/ul (1.5-7.7); Eosinophil % 0.4 %; Hematocrit 44 % (35-47); Hemoglobin 15.2 g/dL (12.0-16.0); Lymphocyte % 23.7 %; Mean Corpuscular HGB Conc 34 g/dL (31-36); Mean Corpuscular Hemoglobin 32 pg (27-31); Mean Corpuscular Volume 94 fL (80-97); Mean Platelet Volume 7.1 fL (7.4-10.4); Platelet Count 202 10^3/uL (150-450); Red Blood Count 4.69 10^6 /uL (3.70-4.87); Red Cell Distribution Width 13 % (10.5-15); White Blood Count 9.4 10^3/uL (3.5-10.8)
[2018-11-25 06:26] LABS: BUN/Creatinine Ratio 18.6 (8-20); Calcium 9.7 mg/dL (8.6-10.3); EGFR African American 101.6 (>60); HDL Cholesterol 51.6 mg/dL; Potassium 3.4 mmol/L (3.5-5.0)
[2018-11-25] MEDS ORDERED: Potassium Chlor TAB* 20 MEQ TAB.ER PO ONE (08:43)
[2018-11-25] MEDS ORDERED: Pseudoephedrine TAB* 30 MG PO SCH (09:00)
[2018-11-25] MEDS ORDERED: Pantoprazole TAB * 40 MG TAB PO SCH (09:00)
--- NOTE | 2018-11-25 11:29 | PN ---
Subjective Date of Service: 11/25/18 Interval History: Resting in bed on assessment. Continues to have head, but reports it is mildly improved this morning and rates pain at "4 to 5". Continues to also have mild nausea and recently received prn for nausea. Patient denies other symptoms including dizziness, visual changes, difficulty finding words, cp, sob. Patient reports she has been taking her Plavix daily since her stroke in Jul. Placed called to patient's pharmacy who report patient picks up Plavix regularly and picked up last prescription on 09/27/18 which was a 90 days supple. Objective Active Medications: Acetaminophen (Tylenol Tab*) 650 mg PO Q4H PRN PRN Reason: FEVER/PAIN Last Admin: 11/25/18 10:25 Dose: 650 mg Al Hydrox/Mg Hydrox/Simethicone (Maalox Plus*) 30 ml PO Q6H PRN PRN Reason: INDIGESTION Cetirizine HCl (Zyrtec*) 10 mg PO DAILY [facility]; Protocol Last Admin: 11/25/18 08:31 Dose: 10 mg Diphenoxylate HCl/Atropine (Lomotil Tab*) 1 tab PO Q6HR PRN PRN Reason: DIARRHEA Heparin Sodium (Porcine) (Heparin Vial(*)) 5,000 units SUBCUT Q8HR [facility] Last Admin: 11/25/18 05:51 Dose: 5,000 units Morphine Sulfate (Morphine 4 Mg/Ml Vial (1 Ml)) 2 mg IV Q4HR PRN PRN Reason: PAIN Ondansetron HCl (Zofran Inj*) 4 mg IV Q4H PRN PRN Reason: NAUSEA/VOMITING Last Admin: 11/25/18 08:32 Dose: 4 mg Pantoprazole Sodium (Protonix Tab*) 40 mg PO DAILY [facility] Last Admin: 11/25/18 08:32 Dose: 40 mg Pseudoephedrine HCl (Sudafed Tab*) 30 mg PO DAILY [facility] Last Admin: 11/25/18 08:32 Dose: 30 mg Sucralfate (Carafate*) 1 gm PO QID [facility] Last Admin: 11/25/18 08:32 Dose: 1 gm Vital Signs - 8 hr 11/25/18 08:35 Temperature 98.6 F Pulse Rate 82 Respiratory 16 Rate Blood Pressure 141/69 (mmHg) O2 Sat by Pulse 95 Oximetry Oxygen Devices in Use Now: None Appearance: Comfortable, NAD Eyes: No Scleral Icterus Ears/Nose/Mouth/Throat: Clear Oropharnyx, Mucous Membranes Moist Neck: NL Appearance and Movements; NL JVP Respiratory: Symmetrical Chest Expansion and Respiratory Effort, Clear to Auscultation Cardiovascular: NL Sounds; No Murmurs; No JVD, RRR, No Edema Abdominal: NL Sounds; No Tenderness; No Distention Lymphatic: No Cervical Adenopathy Extremities: No Edema Skin: No Rash or Ulcers Neurological: Alert and Oriented x 3, - - RUE and RLE 4/5 strength. LUE and LLE normal. Cranial nerves grossly intact. Coordination intact. Nutrition: Taking PO's Result Diagrams: 11/25/18 05:01 11/25/18 05:01 Additional Lab and Data: Laboratory Results - last 24 hr 11/24/18 11/24/18 11/24/18 16:40 16:40 16:40 WBC 11.9 H RBC 4.76 Hgb 15.3 Hct 44 MCV 93 MCH 32 H MCHC 35 RDW 13 Plt Count 213 MPV 7.1 L Neut % (Auto) 75.2 Lymph % (Auto) 19.6 [place] % (Auto) 4.2 Eos % (Auto) 0.0 Baso % (Auto) 1.0 Absolute Neuts (auto) 8.9 H Absolute Lymphs (auto) 2.3 Absolute Monos (auto) 0.5 Absolute Eos (auto) 0.0 Absolute Basos (auto) 0.1 Absolute Nucleated RBC 0.0 Nucleated RBC % 0.1 INR (Anticoag Therapy) 0.93 Sodium 136 Potassium 3.1 L Chloride 102 Carbon Dioxide 24 Anion Gap 10 BUN 9 Creatinine 0.63 Est GFR ( Amer) 114.8 Est GFR (Non-Af Amer) 94.8 BUN/Creatinine Ratio 14.3 Glucose 117 H Hemoglobin A1c Lactic Acid Calcium 10.0 Total Bilirubin 0.50 AST 22 ALT 16 Alkaline Phosphatase 64 Troponin I 0.01 Total Protein 8.4 Albumin 4.8 Globulin 3.6 Albumin/Globulin Ratio 1.3 Triglycerides Cholesterol LDL Cholesterol HDL Cholesterol Urine Color Urine Appearance Urine pH Ur Specific [place] Urine Protein Urine Ketones Urine Blood Urine Nitrate Urine Bilirubin Urine Urobilinogen Ur Leukocyte Esterase Urine WBC (Auto) Urine RBC (Auto) Ur Squamous Epith Cells Urine Bacteria Hyaline Casts Urine Glucose Serum Alcohol < 10 11/24/18 11/25/18 11/25/18 16:40 05:01 05:01 WBC 9.4 RBC 4.69 Hgb 15.2 Hct 44 MCV 94 MCH 32 H MCHC 34 RDW 13 Plt Count 202 MPV 7.1 L Neut % (Auto) 66.6 Lymph % (Auto) 23.7 [place] % (Auto) 9.1 Eos % (Auto) 0.4 Baso % (Auto) 0.2 Absolute Neuts (auto) 6.3 Absolute Lymphs (auto) 2.2 Absolute Monos (auto) 0.9 H Absolute Eos (auto) 0.0 Absolute Basos (auto) 0.0 Absolute Nucleated RBC 0.0 Nucleated RBC % 0.0 INR (Anticoag Therapy) Sodium 136 Potassium 3.4 L Chloride 103 Carbon Dioxide 25 Anion Gap 8 BUN 13 Creatinine 0.70 Est GFR ( Amer) 101.6 Est GFR (Non-Af Amer) 84.0 BUN/Creatinine Ratio 18.6 Glucose 100 Hemoglobin A1c Lactic Acid 1.1 Calcium 9.7 Total Bilirubin AST ALT Alkaline Phosphatase Troponin I Total Protein Albumin Globulin Albumin/Globulin Ratio Triglycerides 190 Cholesterol 188 LDL Cholesterol 98 HDL Cholesterol 51.6 Urine Color Urine Appearance Urine pH Ur Specific [place] Urine Protein Urine Ketones Urine Blood Urine Nitrate Urine Bilirubin Urine Urobilinogen Ur Leukocyte Esterase Urine WBC (Auto) Urine RBC (Auto) Ur Squamous Epith Cells Urine Bacteria Hyaline Casts Urine Glucose Serum Alcohol 11/25/18 11/25/18 10:43 16:40 WBC RBC Hgb Hct MCV MCH MCHC RDW Plt Count MPV Neut % (Auto) Lymph % (Auto) [place] % (Auto) Eos % (Auto) Baso % (Auto) Absolute Neuts (auto) Absolute Lymphs (auto) Absolute Monos (auto) Absolute Eos (auto) Absolute Basos (auto) Absolute Nucleated RBC Nucleated RBC % INR (Anticoag Therapy) Sodium Potassium Chloride Carbon Dioxide Anion Gap BUN Creatinine Est GFR ( Amer) Est GFR (Non-Af Amer) BUN/Creatinine Ratio Glucose Hemoglobin A1c 5.5 Lactic Acid Calcium Total Bilirubin AST ALT Alkaline Phosphatase Troponin I Total Protein Albumin Globulin Albumin/Globulin Ratio Triglycerides Cholesterol LDL Cholesterol HDL Cholesterol Urine Color Yellow Urine Appearance Cloudy Urine pH 5.0 Ur Specific [place] 1.038 H Urine Protein 1+(30 mg/dl) A Urine Ketones Trace A Urine Blood Negative Urine Nitrate Negative Urine Bilirubin Negative Urine Urobilinogen Negative Ur Leukocyte Esterase 2+ A Urine WBC (Auto) 3+(>20/hpf) A Urine RBC (Auto) Absent Ur Squamous Epith Cells Present A Urine Bacteria Absent Hyaline Casts Present A Urine Glucose Negative Serum Alcohol Microbiology and Other Data: . Assess/Plan/Problems-Billing Assessment: 63 yr old female with pmh of htn, stroke, and crohns with ostomy; presented to ED with headache and nausea. - Patient Problems (1) Headache Current Visit: Yes Status: Acute Code(s): R51 - HEADACHE SNOMED Code(s): 13614789 (2) Nausea Current Visit: Yes Status: Acute Code(s): R11.0 - NAUSEA SNOMED Code(s): 274320067 (3) CVA (cerebral vascular accident) Current Visit: No Status: Acute Code(s): I63.9 - CEREBRAL INFARCTION, UNSPECIFIED SNOMED Code(s): 626837287 (4) Crohns disease Current Visit: No Status: Acute Code(s): K50.90 - CROHN'S DISEASE, UNSPECIFIED, WITHOUT COMPLICATIONS SNOMED Code(s): 03109629 (5) HTN (hypertension) Current Visit: No Status: Acute Code(s): I10 - ESSENTIAL (PRIMARY) HYPERTENSION SNOMED Code(s): 63682483 Comment: Continue amlodipine. (6) Tobacco abuse Current Visit: No Status: Acute Code(s): Z72.0 - TOBACCO USE SNOMED Code(s ): 128027573 Comment: Pt advised to quit smoking and avoid second hand smoke. (7) Full code status Current Visit: Yes Status: Acute Code(s): Z78.9 - OTHER SPECIFIED HEALTH STATUS SNOMED Code(s): 916340871 (8) DVT (deep venous thrombosis)
[2018-11-25 11:30] LABS: Urine Appearance Cloudy; Urine Bacteria Absent (Absent); Urine Bilirubin Negative (Negative); Urine Blood Negative (Negative); Urine Color Yellow; Urine Glucose Negative (Negative); Urine Ketones Trace (Negative); Urine Nitrite Negative (Negative); Urine Protein 1+(30 mg/dL) (Negative); Urine Red Blood Cell Absent (Absent); Urine Specific Gravity 1.038 (1.010-1.030); Urine Squamous Epithelial Cell Present (Absent); Urine Urobilinogen Negative (Negative); Urine White Blood Cell 3+(>20/hpf) (Absent)
[2018-11-25 11:34] LABS: Urine Benzodiazepine Screen None Detected (None Detect); Urine Opiates Screen Presumptive Positive (None Detect)
--- NOTE | 2018-11-25 16:23 | CONS ---
CONSULTATION REPORT: DATE OF CONSULT: 11/25/18 PATIENT OF: Lorraine Escobedo NP; Chika Castillo MD HISTORY OF PRESENT ILLNESS: This is a 63-year-old woman who presents with an abnormal MRI scan consistent with stroke. It is not clear when the stroke occurred. She notes that since Saturday she has felt off with some generalized blurry vision with right-sided, but not temporal headache, more of a posterior headache, and with some inattention. She also has Crohn's disease and sounds like she had a flare and has had some dry heaving as well. Of note, she has had a prior stroke in July which was in anterior cerebral artery distribution on left, which left her with some left-sided tingling without any permanent weakness. She had an abnormal CT scan yesterday and I have recommended getting an MRI scan, which was abnormal and she was therefore admitted. The MRI scan was showing a recent stroke with abnormalities on both DWI and FLAIR studies. She had the stroke in July 2018, seen by Dr. Amezquita and had residual tingling of the right hand and foot, Crohn's, hypertension, bilateral hip replacements, osteoarthritis, history of neck fusion. MEDICATIONS: She is on: 1. Plavix 75 daily. 2. [place] wort 1 cap t.i.d. 3. Lomotil 1 to 2 every 6 hours as needed. 4. Norvasc 10 mg daily. 5. Cimzia 400 mg subcu monthly. 6. Cyanocobalamin 1000 mcg monthly. 7. Cetirizine 10 mg daily. 8. Carafate 1 g 4 times a day. 9. Sudafed 30 mg daily. 10. Omeprazole 20 mg daily. ALLERGIES: She is allergic to ASPIRIN with swollen lips. Of note, other allergies include SULFASALAZINE, PAXIL, REMICADE, TETANUS, and ADHESIVE TAPE. SOCIAL HISTORY: She lives at home alone. She quit smoking back in July. REVIEW OF SYSTEMS: Negative in all 14 spheres. PHYSICAL EXAM: Temperature 98.5, pulse 80, respirations 16, blood pressure 122/ 66. She is alert and oriented with normal speech and comprehension. Cranial nerves II through XII were intact. Fundi showed sharp discs. Motor exam revealed normal tone and strength. No pronator drift. Finger-nose was intact. Reflexes were 1 and equal. Toes were downgoing. Sensation was intact to light touch. There is no visual field cut to large object. There is no neglect. There is no faith tenderness. Chest: Clear. Cardiovascular: Regular rate and rhythm. Abdomen is soft. She had an ostomy. DIAGNOSTIC STUDIES/LAB DATA: I reviewed her MRI scans and looked at her prior MRI scan as well from July. She has a right MCA stroke that was seen both on DWI and FLAIR imaging that would go along with a subacute stroke in the right middle cerebral artery distribution. On her July MRI scan, there was a small left anterior cerebral artery stroke. There may be an area of small encephalomalacia in the left cerebellum, which may be a chronic infarct, but this is nonspecific and it was read by the radiologist as a chronic infarct and there was some small vessel ischemic disease as well. Her CTA of her head and neck showed no significant carotid stenosis, no significant vascular abnormalities. She had a transesophageal echo in July, which showed left ventricular diastolic dysfunction, negative PFO study, no clot. Labs include normal CBC, INR, LDL was 98 with normal CMP. UA has specific gravity of 1.038 with 3+ white cells. Her urine tox screen is presumed positive for opiates and cannabinoids, negative for alcohol. IMPRESSION AND PLAN: Sasha has a large vessel stroke with minimal symptoms in the right MCA distribution. She may be more inattentive than before. This follows a recent stroke in the other hemisphere and a possible cerebellar stroke. It is possible that this is secondary to elevated cholesterol and her history of smoking, but there is no major atherosclerotic disease on her CTA. It is possible that this is secondary to cardiac emboli given its multiple distributions. I am recommending a loop recorder electrode to be placed soon to make sure she does not have atrial fibrillation. If she had atrial fibrillation, I explained to her she would need to be anticoagulated. She cannot go on aspirin in addition to the Plavix for the next month because of an aspirin allergy. Her LDL should be treated as well. Thank you for sharing her case. [id number]/[facility] [place] #: [id number] [place]
[2018-11-25 16:51] VITALS: BP 137/71
[2018-11-25] MEDS ORDERED: Clopidogrel TAB* 75 MG PO SCH (17:15)
--- NOTE | 2018-11-25 23:09 | DS ---
CC: Dr. Castillo; Dr. Patino * DISCHARGE SUMMARY: DATE OF ADMISSION: 11/25/18 DATE OF DISCHARGE: 11/25/18 PRIMARY CARE PROVIDER: Dr. Castillo. ATTENDING PHYSICIAN: Dr. Linda Quevedo * (dictated by Val Ferguson NP) PRIMARY DIAGNOSES: 1. Cerebrovascular accident. 2. Tobacco abuse. 3. Hypercholesterol. SECONDARY DIAGNOSES: 1. Crohn's disease. 2. Stroke in July 2008. Anterior cerebral artery distribution on the left with residual left-sided weakness. CONSULTATIONS WHILE IN THE HOSPITAL: Dr. Patino. STUDIES WHILE IN THE HOSPITAL: 1. Brain CT: Impression: No acute intracranial pathology. Subacute to chronic infarct of right MCA distribution. 2. Cervical spine CT: Impression: Postoperative changes with fusion C4 through C7, degenerative disc disease noted. Degenerative disc disease with grade 1 spondylosis at C3-C4 is noted, which is unchanged from prior exam. 3. Shoulder x-ray: Impression: No evidence of fracture of right shoulder. 4. Brain MRI: Impression: Acute infarct involving right parietal lobe in the distribution of right middle cerebral artery. 5. Head CTA: Impression: No acute findings. DISCHARGE HOME MEDICATIONS: New home medications: No new home medications. Continued home medications: 1. Rantitdine 150 mg p.o. b.i.d. 2. Plavix 75 mg p.o. daily. 3. Paradis's wort 1 cap p.o. t.i.d. 4. Lomotil 1 to 2 tabs p.o. q.6 hours p.r.n. 5. Amlodipine 10 mg p.o. daily. 6. Cimzia 400 mg subcu monthly. 7. Vitamin B12 injections at 1000 mcg IM monthly. 8. Zyrtec 10 mg p.o. daily. 9. Carafate 1 mg p.o. 4 times a day. 10. Calcium carbonate/magnesium oxide/zinc sulfate 1 tab p.o. b.i.d. 11. Omeprazole 10 mg p.o. daily. Discontinued home medications: Sudafed 30 mg p.o. daily. HISTORY OF PRESENT ILLNESS/HOSPITAL COURSE: Ms. Devi is a 63-year-old female with a past medical history significant for CVA, Crohn's, hypertension; who presented to the emergency department on 11/24/18 with associated headache and dry heaving. Please see history and physical dictated by Joslyn Lara DO for complete summary of the events leading up to this hospitalization. In short , the patient presented to the emergency room with above-mentioned symptoms and due to given these symptoms, Dr. Patino was consulted, and the patient underwent imaging as mentioned above. The patient was then admitted due to acute right parietal infarct. While admitted, the patient has remained on telemetry and has noted to be in sinus rhythm. The patient was also consulted and evaluated by Dr. Patino, who reviewed her MRI and prior MRIs and remarks that she has a right MCA stroke that was seen on both [facility] and [facility] imaging that could go along with a subacute stroke in the right middle cerebral artery distribution. He also mentions that in the MRI obtained in July, there was a small left anterior cerebral artery stroke. He concluded that the patient has had a large vessel stroke with minimal symptoms in the right MCA distribution. He reports that this follows a recent stroke in the other hemisphere, a possible cerebral stroke. Therefore, recommends treating elevated cholesterol, smoking cessation, and loop recorder to evaluate for atrial fibrillation. He also recommends that the patient continue Plavix. We were unable to add ASPIRIN due to the patient's allergy. The patient's headache is well controlled with Tylenol. The patient's nausea is subsiding as long as headache is well controlled. The patient was evaluated by Physical Therapy, who recommended the patient have physical therapy as an outpatient. The patient is stable for discharge home with close followup. The patient lives in a single-level home as she does have 13 to 14 stairs getting into the home, but she often walks up the hill using the rail because of her toes would get caught on the stairs. Patient was evaluated by Physical Therapy, who said she would benefit from physical therapy as an outpatient. The patient has been ambulating to the bathroom without event. The patient is stable for discharge home. REVIEW OF SYSTEMS: The patient reports headache and she reports this is at 3 to 4/10. She reports this is much improved from admission. The patient reports mild nausea, which is decreased with better controlled headaches. The patient reports slight right-sided weakness, which is baseline for her after previous stroke in July 2018. The patient denies chest pain, shortness of breath, dizziness, visual changes, nausea, vomiting, fever, chills, palpitations. A 14-point review of systems was completed and all were negative. PHYSICAL EXAMINATION: General: Ms. Devi is a 63-year-old female, who is sitting in bed. Appears to be in no acute distress. Appears stated age. Vital Signs: Temp 97.9, HR 78, RR 18, O2 saturation 97% on room air, BP 137/ 71. HEENT: PERRLA. EOMs intact. Oral mucosa is moist without lesion. Posterior pharynx is clear. Neck: Supple. No lymphadenopathy. Cardiac: S1, S2 present. No murmurs, rubs or gallops. Regular rate and rhythm. Respiratory : Lungs clear to auscultation. Good aeration. No rhonchi, wheezes or rubs. Abdomen: Soft, nontender. Bowel sounds normoactive. Ileostomy is draining green liquid stool. Extremities: No clubbing or cyanosis. No edema. Pedal pulses are 2+ bilaterally. Musculoskeletal: No pain or deformities. Skin: No rashes or lesions. Neuro: Cranial nerves II through XII intact. Coordination intact. Sensation intact. Strength in right upper extremity and right lower extremity is LABORATORY DATA: WBC 9.4, hemoglobin 15.2, hematocrit 42, platelets 202. Chemistry: Sodium 136, potassium 3.4, chloride 108, carbon dioxide 25, BUN 13, creatinine 0.70, glucose 100, hemoglobin A1c 5.5. Triglycerides 190, cholesterol 188, LDL is 98, HDL is 51.6. DISCHARGE PLAN/FOLLOWUP: 1. CVA: As mentioned above, the patient has had large vessel stroke with minimal symptoms of the right MCA distribution. This follows a recent stroke in the other hemisphere or possible cerebral stroke. The patient should follow up with Dr. Patino in 1 month. The patient to continue her Plavix p.o. daily. The patient will be referred to Cardiology for loop recorder as there is concern for cardioembolic source. We would like to add aspirin, but we cannot as the patient has an allergy. We would like to start the patient on aspirin given her elevated LDL, but she refuses. The patient should follow up with her primary care regarding this. The patient should have outpatient physical therapy. 2. Previous left anterior cerebral artery stroke: As mentioned above, the patient had an MRI in July, which was consistent with a small left anterior cerebral artery stroke. The patient should continue her Plavix as she has prior. The patient should follow up with Neurology as mentioned above. The patient should also stop Sudafed, as this could be increasing her risks. The patient should implement lifestyle changes including dietary measures to low cholesterol as she is refusing to take statin. The patient should quit smoking. The patient should follow up with Cardiology as mentioned above. 3. Crohn's: The patient has colectomy with ostomy and follow up with Dr. Jose Lopez and Rosalina Haji NP. The patient should continue on this as same. 4. Hypertension: The patient should continue her amlodipine as same. 5. Followup: As mentioned above, the patient is going to be referred to Cardiology for a loop recorder placement, given concern for cardioembolic source. The patient should follow up with Dr. Patino in 1 month. The patient should follow up with her primary care next week. The patient should be referred to physical therapy. The patient should also have a repeat BMP to assess potassium, as it was mildly low on discharge at 3.4. 6. Education: The patient was educated on new or worsening symptoms and when to return to the emergency department. The patient stated understanding. This is a summarized report of a complex medical history and hospital stay. For further details, please see entire medical record. TIME SPENT: 40 min half the time was spent [id number] with the patient and friend discussing discharge plans and instructions. Reviewed by VAL FERGUSON NP 12/14/18 @ [id number]/CPS #: [id number]
[2018-11-26] MEDS ORDERED: Clopidogrel TAB* 75 MG PO SCH ×2 (16:59→21:00)
== END 2018-11-25 18:26 | disposition home or self-care (01) ==
LOC: ED 12:40 → MEDTELE 11-25 00:41 → OBSVTOIN 11-25 14:00 → INTOOBSV 11-25 14:00
PROVIDERS: ADMIT Pediatrics; ATTEND Internal Medicine
DX: I63.9 Cerebral infarction, unspecified (principal); E78.00 Pure hypercholesterolemia, unspecified; K50.90 Crohn's disease, unspecified, without complications; Z86.73 Personal history of transient ischemic attack (TIA), and cerebral infarction without residual deficits; R51 Headache; I10 Essential (primary) hypertension; Z96.641 Presence of right artificial hip joint; M19.90 Unspecified osteoarthritis, unspecified site; M25.511 Pain in right shoulder; Z87.891 Personal history of nicotine dependence; Z88.2 Allergy status to sulfonamides
CPT/HCPCS: 36415; 70450; 70496; 70498; 70553; 72125; 80048; 80053; 80061; 80307; 80320; 81003; 81015; 83036; 83605; 84484; 85025; 85610; 87086; 93005; 96365; 96372; 96375; 99285; A9270-GY; A9579; G0378; G0480; G8978-GP-CJ; G8979-GP-CI; G8987-GO-CI; G8988-GO-CI; G8989-GO-CI; J1644; J2270; J2405; Q9967

== ENCOUNTER 2018-11-27 12:41 | Observation (INO) | payer MEDICARE, MEDICAID ==
[2018-11-27] MEDS ORDERED: NS 0.9% 1000 ML** 1,000 ML IV ONE (12:44)
--- OUTSIDE RECORDS SUMMARY | 2018-11-27 12:46 | XMS REPORT | Continuity of Care Document ---
:1955 External Reference #:[id number] Author Name JamesonKate warner Care Team Providers Name Role Phone Chika Castillo M.D. Primary Care Physician Unavailable Payers Date Identification Numbers Payment Provider Subscriber Policy Number: [id number] Medicare Ssaha Devi PayID: [id number] [address] [place] [address] Policy Number: [id number] Medicaid Sasha Deiv Group Name: 1 [address] PayID: [id number] [place] [address] Advance Directives Description No Information Available Problems Active Problems Provider Date Carpal tunnel syndrome SALLY Valerio Onset: 01/12/2015 Cubital tunnel syndrome SALLY Valerio Onset: 01/12/2015 Arthritis SALLY Valerio Onset: 01/12/2015 Crohn's disease of small AND large intestines Chika Castillo MD Onset: 2018 Colostomy present Chika Castillo MD Onset: 08/29/2018 Tobacco user Chika Castillo MD Onset: 08/29/2018 Cachexia Chika Castillo MD Onset: 08/29/2018 Essential hypertension Chika Castillo MD Onset: 08/29/2018 Family History Date Family Member(s) Observation Comments General Heart Disease General Cancer Mother Rheumatoid Arthritis Third Sister Bladder Cancer Social History Type Date Description Comments Sex Unknown Marital Status Single Lives With Alone Occupation Disabled ETOH Use Denies alcohol use past heavy drinker Tobacco Use Start: Unknown Light tobacco smoker life long until her (10 or fewer stroke 07/22/18 cigarettes/day) Recreational Drug Use Current Drug User Medicinal Cannabis provided by friends Tobacco Use Start: Unknown End: Patient is a former smoker Smoking Status Reviewed: 11/26/18 Patient is a former smoker Exercise Type/Frequency Exercises regularly walks/ caring for her pets Allergies, Adverse Reactions, Alerts Active Allergies Reaction Severity Comments Date Aspirin Itching 12/09/2014 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 Severe 12/09/2014 Remicade Respiratory reaction Severe 12/09/2014 Tape/Silk Excoriation of underlying skin Severe 12/09/2014 Tetanus Immune Globulin 12/09/2014 Aspirin bleeding 08/29/2018 Medications Active Medications SIG Qnty Indications Ordering Date Provider Atorvastatin Calcium 1 by mouth every day 30tabs I63.9 Chika Castillo MD 02/2019 at bedtime 40mg Tablets Azelastine HCL use 1 spray(s) twice 30ml J30.9 Chika Castillo MD 11/26/2018 (Nasal) daily in each 0.15% nostril as needed Solution Atenolol 1 by mouth once a 30tabs R00.0 Chika Castillo MD 11/26/2018 25mg Tablets day, as needed for rapid heart rate Gabapentin 1-3 tabs at bedtime 90caps G62.9 Chika Castillo MD 10/17/2018 100mg as needed for leg Capsules pain Calcium/Magnesium/Zi Unknown nc/Vitamin D3 Vit D3 Tablets Ultralnflamx Plus once per day Unknown 360 Plavix 1 by mouth every day 90tabs Chika Castillo MD 75mg Tablets Cimzia Starter Kit 400 mg subcutaneous Unknown 6X weeks 0,2,4 then 200 200 mg/ML Kit mg every other week Cetirizine HCL 1 by mouth every day Unknown 10mg Tablets Vitamin B12 Every 30 days Unknown Injection Ranitidine HCL 1 by mouth twice a Unknown 150mg day Capsules Carafate take one (1) Unknown 1gm Tablets tablet(s) by mouth every six (6) hours as needed Amlodipine Besylate 1 by mouth every day 90tabs Chika Castillo MD 10mg Tablets History Medications Calcium + D every day Unknown - [id number] Chewtabs 10/31/2018 Echinacea Twice daily Unknown - 08/28/2018 Nexium 40mg 1 by mouth every Unknown - Unknown Capsules DR day Vitamin B Complex 1 by mouth every Unknown - Tablets day 08/28/2018 Sudafed 30mg 1 tab by mouth Unknown - Tablets twice dailyy as 11/26/2018 needed Immunizations Description No Information Available Vital Signs Date Vital Result Comment 11/26/2018 3:15pm Height 64 inches 5'4" Weight 100.00 lb Heart Rate 118 /min BP Systolic Sitting 135 mmHg BP Diastolic Sitting 83 mmHg O2 % BldC Oximetry 96 % BMI (Body Mass Index) 17.2 kg/m2 10/31/2018 2:32pm Height 64 inches 5'4" Weight 101.38 lb Heart Rate 88 /min BP Systolic 110 mmHg BP Diastolic 67 mmHg Body Temperature 98.4 F O2 % BldC Oximetry 95 % BMI (Body Mass Index) 17.4 kg/m2 10/17/2018 4:08pm Height 64 inches 5'4" Weight 101.00 lb Heart Rate 87 /min BP Systolic Sitting 129 mmHg BP Diastolic Sitting 80 mmHg O2 % BldC Oximetry 97 % BMI (Body Mass Index) 17.3 kg/m2 08/29/2018 11:11am Height 64 inches 5'4" Weight 98.25 lb Heart Rate 93 /min BP Systolic 126 mmHg BP Diastolic 62 mmHg Body Temperature 97.7 F O2 % BldC Oximetry 93 % BMI (Body Mass Index) 16.9 kg/m2 06/06/2016 11:18am Height 64 inches 5'4" Weight 95.00 lb Heart Rate 84 /min BP Systolic 138 mmHg BP Diastolic 82 mmHg Respiratory Rate 16 /min Body Temperature 98.1 F BMI (Body Mass Index) 16.3 kg/m2 05/31/2015 11:54am Height 64 inches 5'4" Weight 92.00 lb Body Temperature 97.3 F BMI (Body Mass Index) 15.8 kg/m2 05/17/2015 10:47am Height 64 inches 5'4" Weight 92.00 lb Pain Level 10 BMI (Body Mass Index) 15.8 kg/m2 03/09/2015 11:59am Height 64 inches 5'4" Weight 92.00 lb Pain Level 0 BMI (Body Mass Index) 15.8 kg/m2 02/07/2015 2:41pm Height 64 inches 5'4" Weight 92.00 lb Pain Level 0 BMI (Body Mass Index) 15.8 kg/m2 01/12/2015 10:30am Height 64 inches 5'4" Weight 92.00 lb Heart Rate 83 /min BP Systolic 136 mmHg BP Diastolic 79 mmHg BMI (Body Mass Index) 15.8 kg/m2 Results Test Date Facility Test Result H/L Range Note Comp Metabolic Panel 11/24/2018 [facility] Sodium 136 mmol/L N 135-145 [address] [place] [address] [phone] Potassium 3.1 mmol/L Low 3.5-5.0 Chloride 102 mmol/L N 101-111 Co2 Carbon Dioxide 24 mmol/L N 22-32 Anion Gap 10 mmol/L N 2-11 Glucose 117 mg/dL High 70-100 Blood Urea Nitrogen 9 mg/dL N 6-24 Creatinine 0.63 mg/dL N 0.51-0.95 BUN/Creatinine Ratio 14.3 N 8-20 Calcium 10.0 mg/dL N 8.6-10.3 Total Protein 8.4 g/dL N 6.4-8.9 Albumin 4.8 g/dL N 3.2-5.2 Globulin 3.6 g/dL N 2-4 Albumin/Globulin Ratio 1.3 N 1-3 Total Bilirubin 0.50 mg/dL N 0.2-1.0 Alkaline Phosphatase 64 U/L N 34-104 Alt 16 U/L N 7-52 Ast 22 U/L N 13-39 Egfr Non- 94.8 >60 Egfr 114.8 >60 1 Laboratory test 11/24/2018 [facility] Troponin-I (TnI) 0.01 ng/ mL <0.[address] [place] [address] [phone] Alcohol < 10 mg/dL N <10 Inr/Protime 11/24/2018 [facility] Inr 0.93 N 0.82-1.09 3 [place] [address] [phone] Laboratory test 11/24/2018 [facility] Lactic Acid 1.1 N 0.5- 2.0 [address] mmol/L [place], [place] [id number] [phone] CBC Auto Diff 11/24/2018 [facility] White Blood 11.9 High 3.5- 10.[address] Count 10^3/[place] [address] [phone] Red Blood Count 4.76 10^6/uL N 3.70-4.87 Hemoglobin 15.3 g/dL N 12.0-16.0 Hematocrit 44 % N 35-47 Mean Corpuscular Volume 93 fL N 80-97 Mean Corpuscular Hemoglobin 32 pg High 27-31 Mean Corpuscular HGB Conc 35 g/dL N 31-36 Red Cell Distribution Width 13 % N 10.5-15 Platelet Count 213 10^3/uL N 150-450 Mean Platelet Volume 7.1 fL Low 7.4-10.4 Abs Neutrophils 8.9 10^3/uL High 1.5-7.7 Abs Lymphocytes 2.3 10^3/uL N 1.0-4.8 Abs Monocytes 0.5 10^3/uL N 0-0.8 Abs Eosinophils 0.0 10^3/uL N 0-0.6 Abs Basophils 0.1 10^3/uL N 0-0.2 Abs Nucleated RBC 0.0 10^3/uL Granulocyte % 75.2 % Lymphocyte % 19.6 % Monocyte % 4.2 % Eosinophil % 0.0 % Basophil % 1.0 % Nucleated Red Blood Cells % 0.1 Laboratory 11/24/2018 [facility] Hemoglobin A1c 5.5 % N 4.0- 5.6 5 test finding [address] (Glyco HGB) [place], [place] [address] [phone] Urine Drug SCR 11/24/2018 [facility] Urine None None Detect ED & Pain [address] [place] [address] Screen [phone] Urine Barbiturates Screen None Detected None Detect Urine Benzodiazepine Screen None Detected None Detect Urine Cannabinoids Screen Presumptive Posi <SEE NOTE> Abnormal None Detect 6 Urine Cocaine Screen None Detected None Detect Urine Opiates Screen Presumptive Posi <SEE NOTE> Abnormal None Detect 7 Urine Phencyclidine Screen None Detected None Detect 8 Urinalysis Profile 11/24/2018 [facility] Urine Color Yellow [address] [place] [address] [phone] Urine Appearance Cloudy Urine Specific [place] 1.038 High 1.010-1.030 Urine pH 5.0 N 5-9 Urine Urobilinogen Negative Negative Urine Ketones Trace Abnormal Negative Urine Protein 1+(30 mg/dL) Abnormal Negative Urine Leukocytes 2+ Abnormal Negative Urine Blood Negative Negative Urine Nitrite Negative Negative Urine Bilirubin Negative Negative Urine Glucose Negative Negative Urine White Blood Cell 3+(>20/hpf) Abnormal Absent Urine Red Blood Cell Absent Absent Urine Bacteria Absent Absent Urine Squamous Epithelial Cell Present Abnormal Absent Urine Hyaline Casts Present Abnormal Absent Urine Culture And 11/24/2018 [facility] Urine Culture SEE RESULT [address] [place] [address] [phone] Basic Metabolic 08/29/2018 [facility] Sodium 139 mmol/L N 135- [address] [place] [address] [phone] Potassium 3.6 mmol/L N 3.5-5.0 Chloride 105 mmol/L N 101-111 Co2 Carbon Dioxide 27 mmol/L N 22-32 Anion Gap 7 mmol/L N 2-11 Glucose 113 mg/dL High 70-100 Blood Urea Nitrogen 12 mg/dL N 6-24 Creatinine 0.75 mg/dL N 0.51-0.95 BUN/Creatinine Ratio 16.0 N 8-20 Calcium 9.2 mg/dL N 8.6-10.3 Egfr Non- 77.6 >60 Egfr 93.8 >60 10 1 Because ethnic data is not always readily available, this report includes an eGFR for both -Americans and non- Americans. The National Kidney Disease Education Program (NKDEP) does not endorse the use of the MDRD equation for patients that are not between the ages of 18 and 70, are , have extremes of body size, muscle mass, or nutritional status, or are non- or non-. According to the National Kidney Foundation, irrespective of diagnosis, the stage of the disease is based on the level of kidney function: Stage Description GFR(mL/min/1.73 m(2)) 1 Kidney damage with normal or decreased GFR 90 2 Kidney damage with mild decrease in GFR 60-89 3 Moderate decrease in GFR 30-59 4 Severe decrease in GFR 15-29 5 Kidney failure <15 (or dialysis) 2 Troponin-I testing on Plasma Separator Tubes (PST) has a known false positive rate of 0.20-0.40%. All positive troponins reflex immediately to secondary confirmatory testing. Using the [employer] - innovate | mentor | invest DxI 800 Access Immunoassay systems, the 99th percentile upper reference limit was demonstrated to be < 0.03 ng/mL. 3 Standard intensity warfarin therapeutic range: 2.0-3.0 High intensity warfarin therapeutic range: 2.5-3.5 4 MOS Severe Sepsis and Septic Shock Management Bundle Measure requires all lactic acids initially measuring >2.0 mmol/L be repeated. 5 Therapeutic target for the treatment of diabetes mellitus patients is <7% HBA1C, and in selective patients <6.0%. Please refer to [place] Diabetes Association diabetic care guidelines for further information. 6 Presumptive Positive Presumptive positive results are unconfirmed. 7 Presumptive Positive Presumptive positive results are unconfirmed. 8 The urine specimen was tested at the listed cutoffs: Drug class test level (ng/mL) Amphetamines 500 Barbiturates 200 Benzodiazepine metabolites 200 Cocaine metabolites 150 Cannabinoids 50 Opiates 300 Pcp 25 Specimen was received without chain of custody. Results should be used for medical purposes only. 9 SEE RESULT BELOW Name: SASHA DEVI Ray : [address]: Linda Quevedo MD Acct: [id number] Unit: [id number] AGE: 63 Location: [place] [address] Re11/25/18 Dis: 11/25/18 SEX: F Status: DIS Kamar SPEC: [id number] NEVAEH: 11/25/[address] [facility] DR: Chadwick Keating MD REQ: [id number] RECD: 11/25/18 STATUS: COMP CHRISTINEHR DR: Chika Castillo MD _ SOURCE: URINE SPDESC: ORDERED: Urine Culture Procedure Result Reported Site Urine Culture Final 11/26/18- 1536 ML No growth of clinically significant organisms * ML - Main Lab . END OF REPORT DEPARTMENT OF PATHOLOGY, [address] [place] [address] Donnie Najera M.D. Director [facility] # [id number] 10 Because ethnic data is not always readily available, this report includes an eGFR for both -Americans and non- Americans. The National Kidney Disease Education Program (NKDEP) does not endorse the use of the MDRD equation for patients that are not between the ages of 18 and 70, are , have extremes of body size, muscle mass, or nutritional status, or are non- or non-. According to the National Kidney Foundation, irrespective of diagnosis, the stage of the disease is based on the level of kidney function: Stage Description GFR(mL/min/1.73 m(2)) 1 Kidney damage with normal or decreased GFR 90 2 Kidney damage with mild decrease in GFR 60-89 3 Moderate decrease in GFR 30-59 4 Severe decrease in GFR 15-29 5 Kidney failure <15 (or dialysis) Procedures Date Code Description Status 07/24/2018 91638 ECHO Transthorasic Realtime 2D W Doppler & Color Flow Completed Hosp 09/17/2016 [id number] Mammogram Completed 06/19/2016 32544 Stress ECHO Interpretation/Report Hospital Completed 06/19/2016 34714 Treadmill Interp/Report Only Completed 06/19/2016 40701 Stress Test Supervsn W/Out I/R Completed 05/20/2015 18132 Carpal Tunnel Release Completed 05/20/2015 33496 Neuroplasty &/Or Transposition; Ulnar Nerve AT Elbow Completed 05/20/2015 88367 Neuroplasty &/Or Transposition; Ulnar Nerve AT Elbow Completed 01/27/2015 29262 Carpal Tunnel Release Completed 01/27/2015 20138 Neuroplasty &/Or Transposition; Ulnar Nerve AT Elbow Completed 01/27/2015 63880 Neuroplasty &/Or Transposition; Ulnar Nerve AT Elbow Completed 02/25/2013 [id number] Colonoscopy Completed Encounters Type Date Location Provider Dx Diagnosis Office Visit 08/29/2018 [facility] Chika Castillo MD I63.9 Cerebral 11:20a Medicine - infarction, [place] unspecified F43.21 Adjustment disorder with depressed mood I10 Essential (primary) hypertension E87.6 Hypokalemia R64 Cachexia Z93.3 Colostomy status K50.818 Crohn's disease of both small and lg int w oth complication G47.00 Insomnia, unspecified [facility],teja Gutierrez M.D. infarction, Hospitalists unspecified K50.90 Crohn's disease, unspecified, without complications I10 Essential (primary) hypertension Office Visit 07/23/2018 [facility] Mani Rice I63.522 Cereb infrc d/t 7:00a Clinic Meghan Amezquita unsp occls or stenos of left ant cereb art Office Visit 07/23/2018 [facility] I63.9 Cerebral 9:12a Assoc,pc Hospitalists Meghan Gutierrez infarction, unspecified I10 Essential (primary) hypertension K50.90 Crohn's disease, unspecified, without complications Office Visit 07/22/2018 9:11a [facility] Ni I63.9 Cerebral Assoc,pc Brian, DO infarction, Hospitalists unspecified K50.90 Crohn's disease, unspecified, without complications I10 Essential (primary) hypertension Office Visit 06/06/2016 Surgical Caro Lexx K43.2 Incisional hernia 10:45a [facility] without obstruction [facility] or gangrene Office Visit 01/12/2015 Orthopedic Luanne 715.14 Osteoarthrosis 10:00a [facility] Rickie Prim Hand C.M.A. MShubham 354.0 Carpal Tunnel Syndrome 354.2 Lesion Ulnar Nerve 727.03 Trigger Finger Acquired Plan of Treatment Future Appointment(s):12/11/2018 3:00 pm - Rosalina H[facility] NP at [facility]01/14/2019 3:00 pm - Chika Castillo MD at [facility] Internal Pdgmipis11/09/2019 2:20 pm - Chika Castillo MD at [facility] Internal [id number] - Chika Castillo MDI63.9 Cerebral infarction, unspecifiedNew Medication: Atorvastatin Calcium 40 mg - 1 by mouth every day at bedtimeReferral:Nely Oswald MD, Cardiovsclr EjhlwwqG41.9 Allergic rhinitis, unspecifiedNew Medication: Azelastine HCL (Nasal) 0.15 % - use 1 spray(s) twice daily in each nostril as gturlhP79.0 Tachycardia, unspecifiedNew Medication:Atenolol 25 mg - 1 by mouth once a day, as needed for rapid heart rate
--- OUTSIDE RECORDS SUMMARY | 2018-11-27 12:46 | XMS REPORT | Continuity of Care Document ---
:1955 External Reference #:[id number] Author Name JamesonKate warner Care Team Providers Name Role Phone Chika Castillo M.D. 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 reaction - severe headache Severe 12/09/2014 Remicade [...] Calcium + D every day Unknown - [id number] Chewtabs 10/31/2018 Echinacea Twice daily Unknown - [...] H/L Range Note Comp Metabolic Panel 11/24/2018 [facility] Sodium 136 mmol/L N 135-145 [address] [place] [address] [phone] Potassium 3.1 mmol/L Low 3.5-5.0 Chloride 102 [...] Egfr 114.8 >60 1 Laboratory test 11/24/2018 [facility] Troponin-I (TnI) 0.01 ng/ mL <0.[address] [place] [address] [phone] Alcohol < 10 mg/dL N <10 Inr/Protime 11/24/2018 [facility] Inr 0.93 N 0.82-1.09 3 [place] [address] [phone] Laboratory test 11/24/2018 [facility] Lactic Acid 1.1 N 0.5- 2.0 [address] mmol/L [place], [place] [address] [phone] CBC Auto Diff 11/24/2018 [facility] White Blood 11.9 High 3.5- 10.[address] Count 10^3/[place] [address] [phone] Red Blood Count 4.76 10^6/uL N 3.70-4.87 [...] Red Blood Cells % 0.1 Laboratory 11/24/2018 [facility] Hemoglobin A1c 5.5 % N 4.0- 5.6 5 test finding [address] (Glyco HGB) [place], [place] [address] [phone] Urine Drug SCR 11/24/2018 [facility] Urine None None Detect ED & Pain [address] Amphetamine [place] [address] Screen [phone] Urine Barbiturates Screen None Detected None Detect Urine Benzodiazepine Screen None Detected None Detect Urine Cannabinoids Screen Presumptive Posi <SEE NOTE> Abnormal None Detect 6 Urine Cocaine Screen None Detected None Detect Urine Opiates Screen Presumptive Posi <SEE NOTE> Abnormal None Detect 7 Urine Phencyclidine Screen None Detected None Detect 8 Urinalysis Profile 11/24/2018 [facility] Urine Color Yellow [address] [place] [address] [phone] Urine Appearance Cloudy Urine Specific [place] 1.038 High 1.010-1.030 Urine pH 5.0 N [...] Present Abnormal Absent Urine Culture And 11/24/2018 [facility] Urine Culture SEE RESULT [address] [place] [address] [phone] Basic Metabolic 08/29/2018 [facility] Sodium 139 mmol/L N 135- [address] [place] [address] [phone] Potassium 3.6 mmol/L N 3.5-5.0 Chloride 105 [...] immediately to secondary confirmatory testing. Using the [employer] DxI 800 Access Immunoassay systems, the 99th percentile upper reference limit was demonstrated to be < 0.03 ng/mL. 3 Standard intensity warfarin therapeutic range: 2.0-3.0 High intensity warfarin therapeutic range: 2.5-3.5 4 NVS Severe Sepsis and Septic Shock Management Bundle Measure requires all lactic acids initially measuring >2.0 mmol/L be repeated. 5 Therapeutic target for the treatment of diabetes mellitus patients is <7% HBA1C, and in selective patients <6.0%. Please refer to [place] Diabetes Association diabetic care guidelines for further [...] [address]: Linda Quevedo MD Acct: [id number] Unit: [id number] AGE: 63 Location: [place] [address] Re11/25/18 Dis: 11/25/18 SEX: F Status: DIS Kamar SPEC: [id number] NEVAEH: 11/25/[address] [facility] [address]: Chadwick Keating MD REQ: [id number] RECD: 11/25/18 STATUS: COMP CHRISTINEHR DR: Chika Castillo MD _ SOURCE: URINE SPDESC: ORDERED: Urine Culture Procedure Result Reported Site Urine Culture Final 11/26/18- 1536 ML No growth of clinically significant organisms * ML - Main Lab . END OF REPORT DEPARTMENT OF PATHOLOGY, [address] [place] [address] Donnie Najera M.D. Director [facility] # [id number] 10 Because ethnic data is not always [...] dialysis) Procedures Date Code Description Status 07/24/2018 64955 ECHO Transthorasic Realtime 2D W Doppler & Color Flow Completed Hosp 09/17/2016 [id number] Mammogram Completed 06/19/2016 80910 Stress ECHO Interpretation/Report Hospital Completed 06/19/2016 45819 Treadmill Interp/Report Only Completed 06/19/2016 48781 Stress Test Supervsn W/Out I/R Completed 05/20/2015 69176 Carpal Tunnel Release Completed 05/20/2015 85078 Neuroplasty &/Or Transposition; Ulnar Nerve AT Elbow Completed 05/20/2015 45628 Neuroplasty &/Or Transposition; Ulnar Nerve AT Elbow Completed 01/27/2015 03571 Carpal Tunnel Release Completed 01/27/2015 87174 Neuroplasty &/Or Transposition; Ulnar Nerve AT Elbow Completed 01/27/2015 69528 Neuroplasty &/Or Transposition; Ulnar Nerve AT Elbow Completed 02/25/2013 [id number] Colonoscopy Completed Encounters Type Date Location Provider Dx Diagnosis Office Visit 08/29/2018 [facility] Chika Castillo MD I63.9 Cerebral 11:20a Medicine - infarction, [place] unspecified F43.21 Adjustment disorder with depressed mood I10 Essential (primary) hypertension E87.6 Hypokalemia R64 Cachexia Z93.3 Colostomy status K50.818 Crohn's disease of both small and lg int w oth complication G47.00 Insomnia, unspecified [facility]24[facility]2018 [facility]oc,teja Gutierrez M.D. infarction, Hospitalists unspecified K50.90 Crohn's disease, unspecified, without complications I10 Essential (primary) hypertension Office Visit 07/23/2018 [facility]ist Mani Rice I63.522 Cereb infrc d/t 7:00a Clinic Meghan Amezquita unsp occls or stenos of left ant cereb art Office Visit 07/23/2018 [facility] I63.9 Cerebral 9:12a Assoc,pc Hospitalists Meghan Gutierrez infarction, unspecified I10 Essential (primary) hypertension K50.90 Crohn's disease, unspecified, without complications Office Visit 07/22/2018 9:11a [facility] Ni I63.9 Cerebral Assoc,pc Brian, DO infarction, Hospitalists unspecified K50.90 Crohn's disease, unspecified, without complications I10 Essential (primary) hypertension Office Visit 06/06/2016 Surgical Caro Lexx K43.2 Incisional hernia 10:45a [facility] without obstruction [facility] or gangrene Office Visit 01/12/2015 Orthopedic Luanne 715.14 Osteoarthrosis 10:00a [facility] Rickie Prim Hand C.M.A. MShubham 354.0 Carpal Tunnel Syndrome 354.2 Lesion Ulnar Nerve 727.03 Trigger Finger Acquired Plan of Treatment Future Appointment(s):12/11/2018 3:00 pm - Rosalina Haji NP at [facility]01/14/2019 3:00 pm - Chika Castillo MD at [facility] Internal Hjqmavam52/09/2019 2:20 pm - Chika Castillo MD at [facility] Internal [id number] - Chika Castillo MDI63.9 Cerebral infarction, unspecifiedNew Medication: Atorvastatin Calcium 40 mg - 1 by mouth every day at bedtimeReferral:Nely Oswald MD, Cardiovsclr WftvzrwQ84.9 Allergic rhinitis, unspecifiedNew Medication: Azelastine HCL (Nasal) 0.15 % - use 1 spray(s) twice daily in each nostril as nzfzgkR13.0 Tachycardia, unspecifiedNew Medication:Atenolol 25 mg - 1 by mouth once a day, as needed for rapid heart rate
--- NOTE | 2018-11-27 12:53 | ED ---
HPI Chest Pain - HPI Summary HPI Summary: Pt is a 63 y/o F presenting to the ED with a chief complaint of chest pain onset about 1.5 hours ago when she was doing the dishes. The chest pain is located just right of the sternum, and radiates into her shoulder and neck. EMS gave 1 NTG but no ASA d/t allergy. She reports slight SOB, CP, and mild abd pain. She denies nausea and vomiting, as well as hx of DM or VT. She has Crohns disease with an ostomy bag present, as well as hx of 3 CVAs since July of this year, one of which she was very recently d/mallory from [facility] [place]. She quit smoking on July 22 of this year as well, and has hx of COPD. - History of Current Complaint Hx Obtained From: Patient, EMS Onset/Duration: Started Hours Ago, Still Present Timing: Constant, Lasting Hours Initial Severity: Moderate Current Severity: Mild Pain Intensity: 2 Pain Scale Used: 0-10 Numeric Chest Pain Location: Mid Sternal Chest Pain Radiates: Yes Chest Pain Radiates To:: Shoulder, Neck Aggravating Factor(s): Nothing Alleviating Factor(s): NTG 123, EMS Tx Associated Signs and Symptoms: Positive: Chest Pain, Shortness of Breath, Abdominal Pain. Negative: Nausea, Vomiting - Additional Pertinent History Primary Care Physician: [email or web address] - Allergy/Home Medications Allergies/Adverse Reactions: Allergies Allergy/AdvReac Type Severity Reaction Status Date / Time aspirin Allergy Bleeding Verified 11/24/18 14:20 infliximab [From Remicade] Allergy Tachycardia Verified 11/24/18 14:20 paroxetine [From Paxil] Allergy Unknown Verified 11/24/18 14:20 Reaction Details sulfasalazine Allergy Headache Verified 11/24/18 14:20 [From Azulfidine] Tetanus Vaccines and Toxoid Allergy Swelling Verified 11/24/18 14:20 adhesive tapes (plastic) Allergy Intermediate Rash And Uncoded 11/24/18 14:20 Itching PMH/Surg Hx/FS Hx/Imm Hx Previously Healthy: No Endocrine/Hematology History: Reports: Hx Blood Transfusions - platelets Denies: Hx Diabetes Cardiovascular History: Reports: Hx Angina, Hx Embolism - From central line, Hx Hypercholesterolemia, Hx Hypertension, Other Cardiovascular Problems/Disorders - Scarlet fever Denies: Hx Coronary Artery Disease, Hx Myocardial Infarction, Hx Pacemaker/ ICD, Hx Valvular Heart Disease Respiratory History: Reports: Hx Pneumonia, Hx Seasonal Allergies Denies: Hx Asthma, Hx Chronic Obstructive Pulmonary Disease (COPD) GI History: Reports: Hx Crohn's Disease - SINCE 1970s, Hx Gall Bladder Disease, Hx Gastroesophageal Reflux Disease - ON DAILY MEDS, Hx Irritable Bowel - CROHN' S DISEASE, Hx Ileostomy, Other GI Disorders - ILLEOSTOMY Denies: Hx Cirrhosis, Hx Diverticulosis History: Reports: Hx Kidney Infection - PT STATES 3 WEEKS AGO WAS ON CIPRO AND SEEN BY DR. LOPEZ Denies: Hx Dialysis, Hx Renal Disease Musculoskeletal History: Reports: Hx Arthritis - MOST JOINTS, OSTEO, Hx Back Problems, Hx Orthopedic Injury - hairline fracture 4th lumbar, Hx Osteoporosis, Other Musculoskeletal History - Bilateral hip replacements, Sensory History: Reports: Hx Cataracts - BILAT, NO SURGERY YET, Hx Contacts or Glasses Denies: Hx Hearing Aid Opthamlomology History: Reports: Hx Cataracts - BILAT, NO SURGERY YET, Hx Contacts or Glasses Neurological History: Reports: Hx CVA, Hx Headaches, Hx Migraine - PT STATES HASNT HAD SINCE NECK FUSION, Hx Nerve Disease - NO Dx YET, NUMBNESS FEET Psychiatric History: Reports: Hx Anxiety Denies: Hx Panic Disorder - Cancer History Hx Chemotherapy: No Hx Radiation Therapy: No - Surgical History Surgery Procedure, Year, and Place: BILAT THR [facility], W/ REVISIONS OF BOTH 2012 [facility]. 1990 C-4,5,6,7 FUSION X3 [facility]. RECTUM REMOVED [facility]--- CATARACTS BILAL EYES. CHOLECYSTECTOMY. SEVERAL SMALL BOWEL EXCISIONS W/ COLOSTOMY [facility]. YOUNG CHILD FX OF RIGHT CLAVICLE. 01/2015 RT HAND/ LEFT HAND AND ELBOWS CARPAL TUNNEL RELEASE,ULNAR NERVE. DECOMPRESSION [facility]. RIGHT ROTATOR CUFF RESURFACED Hx Anesthesia Reactions: No Infectious Disease History: Denies: Hx Clostridium Difficile, Hx Hepatitis, Hx Human Immunodeficiency Virus (HIV), Hx of Known/Suspected MRSA, Hx Shingles, Hx Tuberculosis, History Other Infectious Disease, Traveled Outside the [place] in Last 30 Days - Family History Known Family History: Positive: Cardiac Disease - CHF (mother) Family History: FHx of breast cancer - Social History Alcohol Use: None Hx Substance Use: Yes Substance Use Type: Reports: Marijuana Substance Use Comment - Amount & Last Used: muliple times a day, self medicating for chrones disease Hx Tobacco Use: Yes Smoking Status (MU): Former Smoker - quit 07/22/18 Type: Cigarettes Amount Used/How Often: 1PPEVERY 2 WEEKS, WAS 1PPD 1975..RECENTLY TRYING TO STOP Length of Time of Smoking/Using Tobacco: 30+ YEARS Have You Smoked in the Last Year: Yes Review of Systems Positive: Chest Pain Positive: Shortness Of Breath Positive: Abdominal Pain. Negative: Vomiting, Nausea All Other Systems Reviewed And Are Negative: Yes Physical Exam - Summary Physical Exam Summary: GENERAL: Patient is a well-developed and nourished female who is lying comfortable in the stretcher. Patient is not in any acute respiratory distress. HEAD AND FACE: Normocephalic EYES: PERRLA, EOMI x 2. EARS: Hearing grossly intact. MOUTH: Oropharynx within normal limits. NECK: Supple, trachea is midline, no adenopathy, no JVD, no carotid bruit. CHEST: Symmetric, no tenderness at palpation LUNGS: Clear to auscultation bilaterally. No wheezing or crackles. CVS: Regular rate and rhythm, S1 and S2 present, no murmurs or gallops appreciated. ABDOMEN: Surgical incision on the abd that is dry and clean, ostomy bag present with yellow stool and air in the bag. Soft, non-tender. Bowel sounds are normal. No abnormal abdominal pulsations. EXTREMITIES: Full ROM in all major joints, no edema, no cyanosis or clubbing. NEURO: Alert and oriented x 3. No acute neurological deficits. Speech is normal and follows commands. SKIN: Dry and warm Triage Information Reviewed: Yes Vital Signs Reviewed: Yes Diagnostics - Laboratory Result Diagrams: 11/27/18 13:06 11/27/18 13:06 Lab Statement: Any lab studies that have been ordered have been reviewed, and results considered in the medical decision making process. - Radiology CXR Radiology Interpretation Completed By: Radiologist Summary of Radiographic Findings: 1. FINDINGS CONSISTENT WITH COPD, NO EVIDENCE FOR ACUTE FINDING. 2. CHRONIC RIGHT BASILAR PLEURAL THICKENING, UNCHANGED. ED physician has reviewed this report. - EKG 1253 Cardiac Rate: NL - 76bpm EKG Rhythm: Sinus Rhythm ST Segment: Normal Ectopy: None EKG Comparison: No Significant Change Summary of EKG Findings: EKG at 1253 shows NSR 76bpm with nml intervals and nml axis, compared with 11/24/18. Re-Evaluation - Re-Evaluation 1st re-eval Re-Evaluation Time: 15:07 Change: Improved Comment: Due to the pt's hx of HTN, COPD, and smoking, I will be admitting the pt to [facility] for further chest pain workup and evaluation. I spoke with the pt and she is agreeable with this plan. Chest Pain Course/Dx - Course Course Of Treatment: Pt is a 63 y/o F presenting to the ED with a chief complaint of chest pain onset about 1.5 hours ago when she was doing the dishes. The chest pain is located just right of the sternum, and radiates into her shoulder and neck. She reports slight SOB, CP, and mild abd pain. She denies nausea and vomiting. She has notable hx of CVA and Crohn's disease, but denies hx of DM, COPD, or VT. On exam, a surgical scar is present on the pt's abd with an ostomy bag present with yellow stool and air in the bag. EKG at 1253 shows NSR 76bpm with nml intervals and nml axis, compared with 11/24/18. Pt s hematology shows MH of 32, MPV of 7.0. Her APTT is 25.6, and D-dimer is 217. Her BUN/Creatinine ratio is 29.7, Glucose is 102, Magnesium is 1.8, CK-MB is 8.1 , and lipase is 104. Her first troponin is 0.01 and her lactic acid is 0.7. CXR shows: 1. FINDINGS CONSISTENT WITH COPD, NO EVIDENCE FOR ACUTE FINDING. 2. CHRONIC RIGHT BASILAR PLEURAL THICKENING, UNCHANGED. Due to the pt's hx of HTN, COPD, and smoking, I will be admitting the pt to [facility] for further chest pain workup and evaluation. I spoke with the pt at 1507 and she is agreeable with this plan. I discussed the case with Dr. Pettit who will be accepting the pt to [facility] with a dx of chest pain. - Diagnoses Provider Diagnoses: Chest pain Discharge - Sign-Out/Discharge Documenting (check all that apply): Patient Departure - Discharge Plan Condition: Stable Disposition: ADMITTED TO [facility] - Billing Disposition and Condition Condition: STABLE Disposition: Admitted to [facility] - Attestation Statements Document Initiated by Alexis: Yes Documenting Scribe: Joslyn O'Royal Provider For Whom Alexis is Documenting (Include Credential): Rosanna Acosta MD. Scribe Attestation: I, Joslyn Alejo, scribed for Rosanna Acosta MD. on 11/27/18 at 1959. Scribe Documentation Reviewed: Yes Provider Attestation: The documentation as recorded by the ramírezibe, Joslyn Alejo accurately reflects the service I personally performed and the decisions made by me, Cande Acosta MD. Status of Scribe Document: Viewed Consult Consult: 0212 - I discussed the case with Dr. Pettit who agreed to admit the pt to [facility] with a dx of chest pain. The pt is stable and agreeable with this plan.
[2018-11-27 13:18] LABS: ABS Eosinophils 0.1 10^3/ul (0-0.6); ABS Lymphocytes 2.2 10^3/ul (1.0-4.8); ABS Monocytes 0.7 10^3/ul (0-0.8); ABS Neutrophils 4.1 10^3/ul (1.5-7.7); Hematocrit 42 % (35-47); Hemoglobin 14.2 g/dL (12.0-16.0); Lymphocyte % 31.2 %; Mean Corpuscular HGB Conc 34 g/dL (31-36); Mean Corpuscular Hemoglobin 32 pg (27-31); Mean Corpuscular Volume 94 fL (80-97); Platelet Count 204 10^3/uL (150-450); Red Blood Count 4.44 10^6 /uL (3.70-4.87); Red Cell Distribution Width 13 % (10.5-15); White Blood Count 7.1 10^3/uL (3.5-10.8)
[2018-11-27 13:34] LABS: Activated Partial Thrombo Time 25.6 seconds (26.0-36.3); INR 0.92 (0.82-1.09)
[2018-11-27 13:36] LABS: Albumin 4.6 g/dL (3.2-5.2); Albumin/Globulin Ratio 1.4 (1-3); BUN/Creatinine Ratio 29.7 (8-20); Calcium 9.6 mg/dL (8.6-10.3); EGFR African American 95.3 (>60); EGFR Non-African American 78.8 (>60); Globulin 3.3 g/dL (2-4); Magnesium 1.8 mg/dL (1.9-2.7); Potassium 4.1 mmol/L (3.5-5.0); Total Bilirubin 0.8 mg/dL (0.2-1.0); Total Protein 7.9 g/dL (6.4-8.9)
[2018-11-27 13:38] LABS: Troponin I 0.01 ng/mL (<0.04)
[2018-11-27 13:40] LABS: CKMB ng/mL 8.1 ng/mL (0.6-6.3)
[2018-11-27] MEDS ORDERED: Acetaminophen TAB* 325 MG PO PRN (16:14)
[2018-11-27] MEDS ORDERED: Al Hydrox/Mg Hydrox/Simet LIQ* 30 ML UDC PO PRN (16:14)
[2018-11-27] MEDS ORDERED: Diphenoxylat/Atrop 2.5-0.025M* 1 TAB PO PRN (16:19)
[2018-11-27] MEDS: Sucralfate TAB* 1 GM PO SCH ×2 (18:31→21:11)
--- NOTE | 2018-11-27 19:46 | HP ---
CC: Dr. Castillo; Dr. Patino* HISTORY AND PHYSICAL: DATE OF ADMISSION: 11/27/18 PRIMARY CARE PROVIDER: Dr. Castillo. CHIEF COMPLAINT: Chest pain. HISTORY OF PRESENT ILLNESS: Sasha Devi is a 63-year-old female who was discharged from our facility on 11/25/18 after diagnosis of ischemic CVA with no residual weakness. The patient does have history of chronic right-sided weakness due to a CVA earlier this year in July. She stated that today in the morning when she was washing the dishes, she noticed epigastric pain, which was sharp associated with pressure-like sensation radiating to the back of her right shoulder. The pain was severe, lasted approximately half an hour. Later on, dull pain continued for another hour and a half. She denies any nausea, vomiting, or belching. She did just have a meal. The pain is resolved entirely by the time she is being evaluated by myself for observation to rule out acute coronary syndrome/angina. The patient is going to be placed on overnight observation with a diagnosis of chest pain. PAST MEDICAL HISTORY: 1. 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 2. Another ischemic CVA on 11/24/18 when the patient noted blurry vision and dry heaving with no residual symptoms from which the patient was discharged just 2 days ago. 3. History of bilateral hip replacements. 4. History of Crohn's, status post partial colectomy with ostomy, followed by Dr. Kwan. 5. Hypertension. 6. Osteoarthritis. 7. History of neck fusion. 8. 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 She also during that time had an attempt at a left subclavian line and had iatrogenic pneumothorax and chest tube to be placed and that all occurred in the 1970s. MEDICATIONS: At home includes: 1. Ranitidine 150 mg b.i.d. 2. Norvasc 10 mg daily. 3. Carafate 1 g 4 times a day. 4. Bonny's Wort 1 capsule 3 times a day. 5. Omeprazole 20 mg daily. 6. Lomotil 1 to 2 tablets every 6 hours p.r.n. 7. Vitamin B12 injections 1000 mcg monthly IM. 8. Plavix 75 mg daily. 9. Zyrtec 10 mg daily. 10. Certolizumab 400 mg subcutaneously monthly. 11. Calcium, magnesium, and zinc tablets, 1 tablet b.i.d. FAMILY HISTORY: Reviewed and noncontributory. SOCIAL HISTORY: The patient lives at home. She quit smoking in July 2018. She has history of smoking for approximately 50 years, close to 1 pack per day. She uses marijuana on daily basis for her Crohn's syndrome. Her healthcare proxies are her friends, Melly Valdivia and Stefanie Wiley. She is a full code. REVIEW OF SYSTEMS: Please see history of present illness. In the addition to the above mentioned, the patient stated that she was somewhat short of breath today. The pain that she described earlier on today was more related into the epigastric area and was not associated with worsening with deep breathing. She also stated that ever since her diagnosis of recent stroke, she had been very tired. She has had no major GI symptoms. Usually, she will have a rather lot of stoma output, but today it was less than that. She denies abdominal pain, nausea, or vomiting. All the remaining 12 systems were reviewed with the patient and were otherwise negative. PHYSICAL EXAMINATION GENERAL: The patient is a pleasant 63-year-old female, who is in no acute distress. Alert, awake, and oriented x3. VITAL SIGNS: Blood pressure 118/74, heart rate of 76 and regular, respiratory rate 19, oxygen saturation 96% on room air, temperature 98.9. HEENT: Head: Atraumatic, normocephalic. Eyes: Right eye with pupil approximately 3 mm, it is reactive to light; left pupil approximately 1 to 2 mm , nonreactive to light. Oropharynx clear. Mucosa moist. NECK: Supple. No JVD. No bruits bilaterally. RESPIRATORY: Clear to auscultation bilaterally. CARDIOVASCULAR: Regular rhythm. No murmur. ABDOMEN: Soft, nontender. Bowel sounds are present in all [address] in place in the right supraumbilical area with liquid brown stool in the bag. EXTREMITIES: There is no edema. Pulses are +2 bilaterally. No clubbing or cyanosis. NEUROLOGIC: On neuro evaluation, speech is clear. Cranial nerves II through XII grossly intact. Motor strength is slightly decreased distally in right upper and lower extremity at 4+/5. Sensation grossly intact. PSYCHIATRIC: On psychiatric evaluation, the patient is pleasant and cooperative with evaluation, oriented x3. DIAGNOSTIC STUDIES/LAB DATA: Laboratory data showed white blood cell count of 7.1, hemoglobin of 14.2, hematocrit of 42, and platelets of 204. Sodium was 136, potassium 4.1, chloride 104, carbon dioxide 25, BUN 22, creatinine 0.74. Liver function tests were unremarkable. Troponin of 0.01 x2. The patient's EKG showed normal sinus rhythm with a heart rate of 76 beats per minute with no ST changes. Portable chest x-ray, impression and findings consistent with "COPD, no evidence of acute findings. Chronic right basilar pleural thickening unchanged. " ASSESSMENT AND PLAN: 1. Chest pain. Somewhat atypical and appears to be more epigastric for what the patient indicates, but she has a history of atherosclerosis with recent strokes and had felt tired for the past several days. For this reason the patient is going to be placed on overnight observation on telemetry monitoring bed and she will undergo a cardiac stress test in the morning. I will place her for a chemical cardiac stress test. Due to her recent stroke, I do not think she should be placed on treadmill. 2. In regards to the patient's recent stroke. The patient has a residual right - sided weakness due to her stroke in July 2018. No residual weakness after the most recent stroke. The patient is going to be continued on her Plavix. 3. In regards to the patient's chronic GI problems with Crohn's, her Lomotil, Carafate, and omeprazole are going to be continued. 4. For DVT prophylaxis, the patient is going to be placed on heparin subcutaneously. 5. The patient's code status is full and her surrogates are as above, her friends. TIME SPENT: Approximately 65 minutes was spent on admission of this patient, more than half of that time was spent [id number] with the patient during the interview and physical exam. [id number]/[facility] #: [id number] WAYNE
[2018-11-27] MEDS: Famotidine TAB* 20 MG PO SCH (21:11)
[2018-11-27] MEDS: Heparin VIAL(*) 5000 UNITS/ML VIAL (FIVE THOUSAND) SUBCUT SCH (21:11)
[2018-11-27] MEDS ORDERED: Cetirizine* 10 MG TAB PO SCH (22:00)
[2018-11-28] MEDS ORDERED: NS 0.9% 1000 ML** 1,000 ML IV SCH (06:15)
[2018-11-28] MEDS: Heparin VIAL(*) 5000 UNITS/ML VIAL (FIVE THOUSAND) SUBCUT SCH (06:22)
[2018-11-28 08:29] LABS: ABS Basophils 0.1 10^3/ul (0-0.2); ABS Eosinophils 0.1 10^3/ul (0-0.6); ABS Lymphocytes 2.6 10^3/ul (1.0-4.8); ABS Monocytes 0.6 10^3/ul (0-0.8); ABS Neutrophils 3.5 10^3/ul (1.5-7.7); Eosinophil % 1.5 %; Hematocrit 41 % (35-47); Mean Corpuscular HGB Conc 35 g/dL (31-36); Mean Corpuscular Hemoglobin 32 pg (27-31); Mean Corpuscular Volume 94 fL (80-97); Mean Platelet Volume 7.1 fL (7.4-10.4); Nucleated Red Blood Cells % 0.1; Platelet Count 196 10^3/uL (150-450); Red Blood Count 4.32 10^6 /uL (3.70-4.87); Red Cell Distribution Width 13 % (10.5-15); White Blood Count 6.9 10^3/uL (3.5-10.8)
[2018-11-28 08:39] LABS: BUN/Creatinine Ratio 21.1 (8-20); Calcium 9.3 mg/dL (8.6-10.3); EGFR Non-African American 82.6 (>60); Potassium 3.4 mmol/L (3.5-5.0)
[2018-11-28] MEDS ORDERED: Clopidogrel TAB* 75 MG PO SCH (09:00)
[2018-11-28] MEDS ORDERED: Pantoprazole TAB * 40 MG TAB PO SCH (09:00)
[2018-11-28] MEDS ORDERED: amLODIPine TAB* 5 MG PO SCH (09:00)
[2018-11-28] MEDS ORDERED: Regadenoson* 0.4 MG/5 ML SYRINGE ONE (10:34)
[2018-11-28] MEDS ORDERED: Aminophylline IV* 25 MG/ML 10 ML VIAL ONE (11:02)
[2018-11-28 13:12] VITALS: BP 124/66
[2018-11-28] MEDS: Famotidine TAB* 20 MG PO SCH (13:50)
[2018-11-28] MEDS: Sucralfate TAB* 1 GM PO SCH ×2 (13:50→15:07)
--- NOTE | 2018-11-28 16:49 | DS ---
CC: Dr. Brittaney Pettit; Dr. Rosanna Acosta; Dr. Chika Castillo DISCHARGE SUMMARY: DATE OF ADMISSION: DATE OF DISCHARGE: 11/28/18 DISCHARGE DISPOSITION: Home. DISCHARGE CONDITION: Stable. DISCHARGE DIAGNOSES: As follows: 1. Chest pain, atypical, likely musculoskeletal with left-sided chest tenderness. 2. Cerebrovascular accident, ischemic, recent. 3. Crohn disease, history of. DISCHARGE MEDICATIONS: As follows: 1. Tylenol 650 mg p.o. q.6 p.r.n. 2. Maalox Plus 30 mL p.o. q.6 p.r.n. 3. Amlodipine 10 mg p.o. daily. 4. Clopidogrel 75 mg p.o. daily. 5. Diphenoxylate/atropine 2.5/0.025 one tab p.o. q.6 p.r.n. 6. Pantoprazole 40 mg p.o. daily. 7. Ranitidine 150 mg p.o. b.i.d. 8. Famotidine 20 mg p.o. b.i.d. 9. Sucralfate 1 g p.o. 4 times daily. 10. Calcium carbonate, mag ox, and zinc 1 tab p.o. b.i.d. 11. Certolizumab pegol 400 mg subcu monthly. 12. Cetirizine 10 mg p.o. daily. 13. Cyanocobalamin 1000 mcg IM monthly. 14. Bonny's wort 1 cap p.o. t.i.d. HISTORY OF PRESENT ILLNESS/HOSPITAL COURSE: The patient is a 63-year-old lady with history of hypertension, osteoarthritis, with history of recent ischemic CVA, who was recently discharged 2 days prior, who was readmitted for chest pain obs. She had been ruled out for acute coronary syndrom e and had a stress test, which was otherwise found to be low risk. Her D-dimer rules out any form of venous thromboembolism as well. On my exam this morning, she was found to have left chest wall tend erness on palpation; however, the patient was unsure if this was the same pain that she felt on prese ntation; however, given negative stress test and atypical cause of pain, possible soft tissue pain an d/or costochondritis. She was advised to follow up and/or call her PCP within 3 days post discharge. She was informed of t he reassuring results of her stress test and she was advised that if her symptoms resume or develop n ew ones or feel unwell for any reason, to call her PCP first and if her PCP cannot entertain her due to scheduling issues alone, she was advised to call [facility] if the issue is considered no nemergent. She was advised to call my office regarding any questions, concerns, or further clarificat ions regarding her discharge plans and/or prescriptions and to take her medications as prescribed. REVIEW OF SYSTEMS: The patient denied any recent headaches, dizziness, fevers, chills, nausea, vomit ing, shortness of breath, abdominal pain, diarrhea, constipation, pain and/or increased frequency on urination, myalgias, arthralgias, throat pain, or new skin lesions. The rest of the 14-point review of systems is otherwise unremarkable. PHYSICAL EXAMINATION: Reveals the most recent vital signs of record with blood pressure of 124/66, 7 7 beats per minute heart rate, 98.3 degrees Fahrenheit, 20 per minute respiratory rate, saturating at 99% on room air. General Appearance: The patient is awake, alert, and oriented x3, not in acute di stress. HEENT: Normocephalic, atraumatic. PERRLA. Extraocular muscles intact. Negative for icteru s. Moist oral mucosa. Negative throat erythema. Neck is soft, supple with no cervical lymphadenopa thy, no JVD. Heart: S1, S2 within normal limits. Regular rate and rhythm. No murmurs, rubs, or ga llops. Chest: Clear to auscultation bilaterally. Good air entry. No wheezes, rales, or rhonchi. Positive left-sided chest wall tenderness. Abdomen is soft, nondistended, nontender. Normoactive jignesh wel sounds x4 quadrants. Extremities: No cyanosis, clubbing, or edema. Psychiatric: No active psyc hosis, depression, suicidal or homicidal ideation. Skin is warm to touch. TIME SPENT: The total time spent evaluating the patient, reviewing pertinent data and appropriate do cumentation is 40 minutes. [id number]/[facility] #: [id number]
[2018-11-28] MEDS ORDERED: Cetirizine* 10 MG TAB PO SCH (21:00)
== END 2018-11-28 15:00 | disposition home or self-care (01) ==
LOC: ED 12:41 → MEDTELE 16:14
PROVIDERS: ADMIT Internal Medicine; ATTEND Student in an Organized Health Care Education/Training Program
DX: R07.89 Other chest pain (principal); I63.9 Cerebral infarction, unspecified; K50.90 Crohn's disease, unspecified, without complications; Z96.643 Presence of artificial hip joint, bilateral; I10 Essential (primary) hypertension; M19.90 Unspecified osteoarthritis, unspecified site; M43.22 Fusion of spine, cervical region; Z87.891 Personal history of nicotine dependence; R10.9 Unspecified abdominal pain; Z87.440 Personal history of urinary (tract) infections; Z86.73 Personal history of transient ischemic attack (TIA), and cerebral infarction without residual deficits; Z88.2 Allergy status to sulfonamides; Z88.6 Allergy status to analgesic agent; G90.2 Horner's syndrome; Z79.899 Other long term (current) drug therapy
CPT/HCPCS: 36415; 71046; 78452; 80048; 80053; 82553; 83605; 83690; 83735; 83880; 84484; 85025; 85379; 85610; 85730; 93005; 93017; 96372; 99284; A9270-GY; A9502; G0378; J0280; J1644; J2785

== ENCOUNTER 2019-02-16 11:18 | Emergency (ER) | payer MEDICAID, MEDICARE ==
--- OUTSIDE RECORDS SUMMARY | 2019-02-16 11:25 | XMS REPORT | Continuity of Care Document ---
:1955 External Reference #:[id number] Author Name Xena Marychuy Care Team Providers Name Role Phone Chika Castillo M.D. Primary Care Physician Unavailable Payers Date Identification Numbers Payment Provider Subscriber Policy Number: [id number] Medicare Sasha Burnette PayID: [id number] [address] [place] [address] Policy Number: [id number] Medicaid Sasha Burnette Group Name: 1 [address] PayID: [id number] [place] [address] Problems Active Problems Provider Date Carpal tunnel syndrome SALLY Valerio Onset: 01/12/2015 Cubital tunnel syndrome SALLY Valerio Onset: 01/12/2015 Arthritis SALLY Valerio Onset: 01/12/2015 Essential hypertension Chika Castillo MD Onset: 08/29/2018 Cachexia Chika Castillo MD Onset: 08/29/2018 Tobacco user Chika Castillo MD Onset: 08/29/2018 Colostomy present Chika Castillo MD Onset: 08/29/2018 Crohn's disease of small AND large intestines Chika Castillo MD Onset: 2018 Family History Date Family Member(s) Observation Comments General Heart Disease General Cancer Mother Rheumatoid Arthritis Third Sister Bladder Cancer Social History Type Date Description Comments Sex Unknown Marital Status Single Lives With Alone Occupation Disabled Hand 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 Right-handed ETOH Use Denies alcohol use past heavy drinker Tobacco Use Start: Unknown Light tobacco smoker life long until her (10 or fewer stroke 07/22/18 cigarettes/day) Recreational Drug Use Current Drug User Medicinal Cannabis provided by friends - few times a daily Tobacco Use Start: Unknown End: Patient is a former smoker Smoking Status Reviewed: 02/11/19 Patient is a former smoker Exercise Type/Frequency Exercises regularly walks/ caring for her pets Allergies, Adverse Reactions, Alerts Active Allergies Reaction Severity Comments Date Aspirin Itching 12/09/2014 Azulfidine PACKAGER reaction - severe headache Severe 12/09/2014 Remicade Respiratory reaction Severe 12/09/2014 Tape/Silk Excoriation of underlying skin Severe 12/09/2014 Tetanus Immune Globulin 12/09/2014 Aspirin bleeding 08/29/2018 Medications Active Medications SIG Qnty Indications Ordering Date Provider Cyanocobalamin 1000 mcg by 30ml Chika Castillo MD 02/04/2019 intramuscular 1000mcg/ML Solution injection once a month Vitamin Deficiency inject 1 milliliter 3units Chika Castillo MD 01/26/2019 Injectable System-B12 monthly 1000mcg/ML Kit Atorvastatin Calcium 1 by mouth every day 30tabs I63.9 Chika Castillo MD 02/2019 at bedtime 40mg Tablets Azelastine HCL use 1 spray(s) twice 30ml J30.9 Chika Castillo MD 11/26/2018 (Nasal) daily in each 0.15% Solution nostril as needed Atenolol 1 by mouth once a 30tabs R00.0 Chika Castillo MD 11/26/2018 25mg Tablets day, as needed for rapid heart rate Gabapentin 1-3 tabs at bedtime 90caps G62.9 Chika Castillo MD 10/17/2018 100mg as needed for leg Capsules pain Pantoprazole Sodium 1 by mouth every day 90tabs Chika Castillo MD 40mg Tablets DR Calcium/Magnesium/Zin Unknown c/Vitamin D3 Vit D3 Tablets Ultralnflamx Plus 360 once per day Unknown Plavix 1 by mouth every day 90tabs Chika Castillo MD 75mg Tablets Cetirizine HCL 1 by mouth every day Unknown 10mg Tablets Ranitidine HCL 1 by mouth twice a 60caps Chika Castillo MD 150mg day Capsules Amlodipine Besylate 1 by mouth every day 90tabs Chika Castillo MD 10mg Tablets History Medications Calcium + D every day Unknown - [id number] 10/31/2018 Chewtabs Carafate take one (1) Unknown - 1gm Tablets tablet(s) by mouth 12/29/2018 every six (6) hours as needed Echinacea Twice daily Unknown - 08/28/2018 Nexium 1 by mouth every Unknown - 40mg Capsules DR day 12/23/2018 Vitamin B12 Injection Inject 1 ml every 1Vial Chika Castillo, - 30 days 01/25/2019 Vitamin B Complex 1 by mouth every Unknown - Tablets day 08/28/2018 Cimzia Starter Kit 400 mg subcutaneous Unknown - 6X 200 mg/ML Kit weeks 0,2,4 then 12/29/2018 200 mg every other week Sudafed 1 tab by mouth Unknown - 30mg Tablets twice dailyy as 11/26/2018 needed Vital Signs Date Vital Result Comment 02/11/2019 2:42pm Height 64 inches 5'4" Weight 107.00 lb Heart Rate 78 /min BP Systolic 107 mmHg BP Diastolic 73 mmHg O2 % BldC Oximetry 95 % BMI (Body Mass Index) 18.4 kg/m2 01/23/2019 4:19pm Height 64 inches 5'4" Weight 106.00 lb Heart Rate 76 /min BP Systolic 110 mmHg BP Diastolic 70 mmHg Body Temperature 97.8 F O2 % BldC Oximetry 96 % BMI (Body Mass Index) 18.2 kg/m2 01/13/2019 1:43pm Height 64 inches 5'4" Weight 102.25 lb Heart Rate 92 /min BP Systolic Sitting 105 mmHg Lue, regular cuff BP Diastolic Sitting 70 mmHg Lue, regular cuff BMI (Body Mass Index) 17.5 kg/m2 12/31/2018 12:41pm Height 64 inches 5'4" Weight 104.00 lb w/o shoes Heart Rate 90 /min BP Systolic Sitting 120 mmHg Rue reg cuff BP Diastolic Sitting 78 mmHg Rue reg cuff BP Systolic Standing 124 mmHg Lue reg cuff BP Diastolic Standing 82 mmHg Lue reg cuff BP Systolic Lying Down 118 mmHg Lue reg cuff BP Diastolic Lying Down 78 mmHg Lue reg cuff Respiratory Rate 16 /min BMI (Body Mass Index) 17.8 kg/m2 12/24/2018 1:09pm Height 64 inches 5'4" Weight 104.00 lb Heart Rate 86 /min BP Systolic Sitting 112 mmHg BP Diastolic Sitting 60 mmHg Respiratory Rate 15 /min BMI (Body Mass Index) 17.8 kg/m2 12/11/2018 3:05pm Height 64 inches 5'4" Weight 102.25 lb Heart Rate 106 /min BP Systolic 115 mmHg BP Diastolic 71 mmHg Body Temperature 97.0 F O2 % BldC Oximetry 95 % BMI (Body Mass Index) 17.5 kg/m2 11/26/2018 3:15pm Height 64 inches 5'4" Weight [...] Date Facility Test Result H/L Range Note Laboratory test 12/29/2018 [facility] Clotest SEE RESULT 1 , [address] [place] [address] [phone] Laboratory test 12/29/2018 [facility] Surgical SEE RESULT 3 , [address] [place] [address] [phone] Laboratory test 11/27/2018 [facility] Troponin-I 0.01 ng/mL < 0.[address] (TnI) [place] [address] [phone] CKMB 11/27/2018 [facility] CKMB ng/mL 8.1 ng/mL High 0.6-6.3 [place] [address] [phone] Laboratory test 11/27/2018 [facility] Magnesium 1.8 mg/dL Low 1.9-2.[address] [place] [address] [phone] Lipase 104 U/L High 11.0-82.0 Troponin-I (TnI) 0.01 ng/mL <0.04 6 Comp Metabolic Panel 11/27/2018 [facility] Sodium 136 mmol/L N 135-[address] [place] [address] [phone] Potassium 4.1 mmol/L N 3.5-5.0 Chloride 104 mmol/L N 101-111 Co2 Carbon Dioxide 25 mmol/L N 22-32 Anion Gap 7 mmol/L N 2-11 Glucose 102 mg/dL High 70-100 Blood Urea Nitrogen 22 mg/dL N 6-24 Creatinine 0.74 mg/dL N 0.51-0.95 BUN/Creatinine Ratio 29.7 High 8-20 Calcium 9.6 mg/dL N 8.6-10.3 Total Protein 7.9 g/dL N 6.4-8.9 Albumin 4.6 g/dL N 3.2-5.2 Globulin 3.3 g/dL N 2-4 Albumin/Globulin Ratio 1.4 N 1-3 Total Bilirubin 0.80 mg/dL N 0.2-1.0 Alkaline Phosphatase 72 U/L N 34-104 Alt 21 U/L N 7-52 Ast 25 U/L N 13-39 Egfr Non- 78.8 >60 Egfr 95.3 >60 7 Laboratory test 11/27/2018 [facility] Partial 25.6 seconds Low 26.0-36.[address] [address] PTT [phone] D Dimer Quantitative 217 ng/mL N Less Than 230 8 B-Type Natriuretic Peptide BNP 12 pg/mL <=100 Inr/Protime 11/27/2018 [facility] Inr 0.92 N 0.82-1.[address] [place] [address] [phone] CBC Auto Diff 11/27/2018 [facility] White Blood 7.1 10^3/uL N 3.5-10.[address] [place] [address] [phone] Red Blood Count 4.44 10^6/uL N 3.70-4.87 Hemoglobin 14.2 g/dL N 12.0-16.0 Hematocrit 42 % N 35-47 Mean Corpuscular Volume 94 fL N 80-97 Mean Corpuscular Hemoglobin 32 pg High 27-31 Mean Corpuscular HGB Conc 34 g/dL N 31-36 Red Cell Distribution Width 13 % N 10.5-15 Platelet Count 204 10^3/uL N 150-450 Mean Platelet Volume 7.0 fL Low 7.4-10.4 Abs Neutrophils 4.1 10^3/uL N 1.5-7.7 Abs Lymphocytes 2.2 10^3/uL N 1.0-4.8 Abs Monocytes 0.7 10^3/uL N 0-0.8 Abs Eosinophils 0.1 10^3/uL N 0-0.6 Abs Basophils 0.0 10^3/uL N 0-0.2 Abs Nucleated RBC 0.0 10^3/uL Granulocyte % 57.6 % Lymphocyte % 31.2 % Monocyte % 9.5 % Eosinophil % 1.0 % Basophil % 0.7 % Nucleated Red Blood Cells % 0.0 Laboratory test 11/27/2018 [facility] Lactic Acid 0.7 mmol/L N 0.5-2.0 [address] [place] [address] [phone] Comp Metabolic 11/24/2018 [facility] Sodium 136 mmol/L N 135- 145 Panel [address] [place] [address] [phone] Potassium 3.1 mmol/L Low 3.5-5.0 Chloride 102 [...] Egfr Non- 94.8 >60 Egfr 114.8 >60 11 Laboratory test 11/24/2018 [facility] Troponin-I (TnI) 0.01 ng/ mL <0.04 12 [address] [place] [address] [phone] Alcohol < 10 mg/dL N <10 Inr/Protime 11/24/2018 [facility] Inr 0.93 N 0.82-1.09 13 [address] [place] [address] [phone] Laboratory test 11/24/2018 [facility] Lactic Acid 1.1 N 0.5- 2.0 [address] mmol/[place] [address] [phone] CBC Auto Diff 11/24/2018 [facility] White Blood 11.9 High 3.5- 10.[address] Count 10^3/[place] [address] [phone] Red Blood Count 4.76 10^6/uL N 3.70-4.87 [...] Red Blood Cells % 0.1 Laboratory 11/24/2018 [facility] Hemoglobin A1c 5.5 % N 4.0- 5.6 15 test finding [address] (Glyco HGB) [place] [address] [phone] Urine Drug SCR 11/24/2018 [facility] Urine None None ED & Pain [address] Amphetamine [place] [address] Screen [phone] Urine Barbiturates Screen None Detected None Detect Urine Benzodiazepine Screen None Detected None Detect Urine Cannabinoids Screen Presumptive Posi <SEE NOTE> Abnormal None Detect 16 Urine Cocaine Screen None Detected None Detect Urine Opiates Screen Presumptive Posi <SEE NOTE> Abnormal None Detect 17 Urine Phencyclidine Screen None Detected None Detect 18 Urinalysis Profile 11/24/2018 [facility] Urine Color Yellow [address] [place] [address] [phone] Urine Appearance Cloudy Urine Specific [place] 1.038 High 1.010-1.030 Urine pH 5.0 N [...] Present Abnormal Absent Urine Culture And 11/24/2018 [facility] Urine Culture SEE RESULT [address] [place] [address] [phone] Basic Metabolic 08/29/2018 [facility] Sodium 139 mmol/L N 135- [address] [place] [address] [phone] Potassium 3.6 mmol/L N 3.5-5.0 Chloride 105 mmol/L N 101-111 Co2 Carbon Dioxide 27 mmol/L N 22-32 Anion Gap 7 mmol/L N 2-11 Glucose 113 mg/dL High 70-100 Blood Urea Nitrogen 12 mg/dL N 6-24 Creatinine 0.75 mg/dL N 0.51-0.95 BUN/Creatinine Ratio 16.0 N 8-20 Calcium 9.2 mg/dL N 8.6-10.3 Egfr Non- 77.6 >60 Egfr 93.8 >60 20 1 [id number] 2 SEE RESULT BELOW Name: SASHA BURNETTE : [address]: Cass Kwan MD Acct: [id number] Unit: [id number] AGE: 63 Location: [facility] Re12/29/18 SEX: F Status: DEP REF SPEC: [id number] NEVAEH: 12/29/[address]: Cass Lopez MD REQ: [id number] RECD: 12/29/18 STATUS: FABIOLA OTERO DR: Chika Castillo MD _ SOURCE: GAS ANTRUM SPDESC: ORDERED: Clotest COMMENTS: [id number] Procedure Result Reported Site Clotest Final 12/30/18717 ML Clotest Negative * ML - Main Lab . END OF REPORT DEPARTMENT OF PATHOLOGY, [address] [place] [address] Donnie Najera M.D. Director [facility] # [id number] 4 SEE RESULT BELOW Name: SASHA BURNETTE : [address]: Cass Kwan MD Acct: [id number] Unit: [id number] AGE: 63 Location: [facility] Re12/29/18 SEX: F Status: DEP REF SPEC: [id number] NEVAEH: 12/29/18-0854 [facility] DR: Cass Lopez MD REQ: [id number] RECD: 12/29/18-1202 STATUS: UTE OTERO DR: Chika Castillo MD _ ORDERED: LEVEL 4/5, IMMUNO-FIRST, SPEC STAIN ORG/2 COMMENTS: [id number] ADDENDUM Addendum: An immunohistochemical stain for Helicobacter pylori-like organisms were performed with appropriate controls on part 3 and is negative. Addendum Signed (signature on file) Donnie Najera MD 1727 FINAL DIAGNOSIS 1. Small bowel, duodenum, biopsy: -- Small bowel mucosa with normal villous architecture and no significant pathologic abnormality. 2. Small bowel, duodenum, nodule, biopsy: -- Small bowel mucosa with normal villous architecture and no significant pathologic abnormality. 3. Gastroesophageal junction, biopsy: -- Gastroesophageal transition zone mucosa with focal active gastritis. See comment. -- No specific features of reflux esophagitis identified. -- Focal goblet cell/intestinal metaplasia identified. -- No dysplasia identified. 4. Distal esophagus, biopsy: -- Superficial squamous mucosa with chronic inflammation (greater than 20 lymphocytes/hpf), few scattered neutrophils and reactive reactive squamous epithelial changes with superficial bacterial overgrowth. See comment. -- No eosinophils identified. -- No glandular component identified. 5. Mid esophagus, biopsy: -- Superficial squamous epithelium with chronic inflammation (up to 12 lymphocytes/HPF) and CONTINUED ON NEXT PAGE DEPARTMENT OF PATHOLOGY, [address] [place] [address] Donnie Najera M.D. Director [facility] # [id number] RUN DATE: 12/31/18 [facility] LAB LIVE PAGE 2 Patient: SASHA BURNETTE [id number] (Continued) FINAL DIAGNOSIS (Continued) nonspecific reactive changes. -- Specific features of reflux or allergic/eosinophilic esophagitis are not seen. -- No active inflammation is identified. Comment: The esophageal findings are not entirely specific but raise the possibility of the less than globally except a diagnosis of lymphocytic esophagitis. Some authors associates such findings with a manifestation of Crohn's disease but there is considerable overlap clinically with other processes with a general reactive change. More specific features of reflux or eosinophilic esophagitis are not seen. Histochemical stains for fungal organisms (PAS and GMS) were performed with appropriate controls on part 4 and are negative for fungal organisms. Correlation with clinical and endoscopic findings is recommended. CLINICAL HISTORY Screening/Surveillance for malignancy in asymptomatic patient; abdominal pain ; gastroesophageal reflux disease POST-OPERATIVE DIAGNOSIS EGD: esophagus - gastroesophageal junction at 40 cm; biopsy; z line at 38 cm ; mid and distal biopsy; few white patches; gastric - normal, SUMEET test; duodenum - normal, biopsy GROSS DESCRIPTION 1. The specimen is received in formalin labeled, Biopsy Duodenum, and consists of a 0.7 x 0.6 x 0.2 cm aggregate of rodríguez-pink irregular soft tissue fragments which is submitted entirely in one cassette. 2. The specimen is received in formalin labeled, Biopsy Duodenum Nodule, and consists of a 0.3 x 0.2 x 0.2 cm rodríguez-pink irregular soft tissue fragment admixed with red- brown blood CONTINUED ON NEXT PAGE DEPARTMENT OF PATHOLOGY, [address] [place] [address] Donnie Najera M.D. Director [facility] # [id number] RUN DATE: 12/31/18 [facility] LAB LIVE PAGE 3 Patient: SASHA BURNETTE [id number] (Continued) GROSS DESCRIPTION (Continued) clot. Entirely submitted, one cassette. 3. The specimen is received in formalin labeled, Biopsy [place], and consists of a 1.0 x 0.4 by up to 0.2 cm aggregate of rodríguez-pink irregular soft tissue fragments which is submitted entirely in one cassette. 4. The specimen is received in formalin labeled, Biopsy Distal Esophagus, and consists of a 0.6 x 0.6 x 0.1 cm aggregate of rodríguez-pink irregular soft tissue fragments which is submitted entirely in one cassette. 5. The specimen is received in formalin labeled, Biopsy Mid Esophagus, and consists of a 0.8 x 0.5 x 0.1 cm aggregate of translucent rodríguez-pink irregular soft tissue fragments which is submitted entirely in one cassette. Signed by and Reported on: Donnie Najera MD 07/09 1709 END OF REPORT DEPARTMENT OF PATHOLOGY, [address] [place] [id number] Donnie Najera M.D. Director [facility] # [id number] 5 Troponin-I testing on Plasma Separator Tubes (PST) has a known false positive rate of 0.20-0.40%. All positive troponins reflex immediately to secondary confirmatory testing. Using the [employer] DxI 800 Access Immunoassay systems, the 99th percentile upper reference limit was demonstrated to be < 0.03 ng/mL. 6 Troponin-I testing on Plasma Separator Tubes (PST) has a known false positive rate of 0.20-0.40%. All positive troponins reflex immediately to secondary confirmatory testing. Using the [employer] the Call DxI 800 Access Immunoassay systems, the 99th percentile upper reference limit was demonstrated to be < 0.03 ng/mL. 7 Because ethnic data is not always readily [...] 15-29 5 Kidney failure <15 (or dialysis) 8 Please note: The following may produce a false positive D Dimer test: - Rheumatoid factor greater than 60 IU/ml - Plasma hemoglobin greater than 0.05 gm/dl - Bilirubin greater than 50 mg/dl - Lipids greater than 1000 mg/dl - FDP greater than 20 ug/ml 9 Standard intensity warfarin therapeutic range: 2.0-3.0 High intensity warfarin therapeutic range: 2.5-3.5 10 [facility] Severe Sepsis and Septic Shock Management Bundle Measure requires all lactic acids initially measuring >2.0 mmol/L be repeated. 11 Because ethnic data is not always readily [...] 15-29 5 Kidney failure <15 (or dialysis) 12 Troponin-I testing on Plasma Separator Tubes (PST) has a known false positive rate of 0.20-0.40%. All positive troponins reflex immediately to secondary confirmatory testing. Using the [employer] DxI 800 Access Immunoassay systems, the 99th percentile upper reference limit was demonstrated to be < 0.03 ng/mL. 13 Standard intensity warfarin therapeutic range: 2.0-3.0 High intensity warfarin therapeutic range: 2.5-3.5 14 [facility] Severe Sepsis and Septic Shock Management Bundle Measure requires all lactic acids initially measuring >2.0 mmol/L be repeated. 15 Therapeutic target for the treatment of diabetes mellitus patients is <7% HBA1C, and in selective patients <6.0%. Please refer to [place] [employer] diabetic care guidelines for further information. 16 Presumptive Positive Presumptive positive results are unconfirmed. 17 Presumptive Positive Presumptive positive results are unconfirmed. 18 The urine specimen was tested at the listed cutoffs: Drug class test level (ng/mL) Amphetamines 500 Barbiturates 200 Benzodiazepine metabolites 200 Cocaine metabolites 150 Cannabinoids 50 Opiates 300 Pcp 25 Specimen was received without chain of custody. Results should be used for medical purposes only. 19 SEE RESULT BELOW Name: SASHA BURNETTE : [address]: Linda Quevedo MD Acct: [id number] Unit: [id number] AGE: 63 Location: [place] [address] Re11/25/18 Dis: 11/25/18 SEX: F Status: DIS Kamar SPEC: [id number] NEVAEH: 11/25/18 [facility] DR: Chadwick Keating MD REQ: [id number] RECD: 11/25/18 STATUS: FABIOLA KINGHR DR: Chika Castillo MD _ SOURCE: URINE SPDESC: ORDERED: Urine Culture Procedure Result Reported Site Urine Culture Final 11/26/18- 1536 ML No growth of clinically significant organisms * ML - Main Lab . END OF REPORT DEPARTMENT OF PATHOLOGY, [address] [place] [address] Donnie Najera M.D. Director [facility] # [id number] 20 Because ethnic data is not always readily [...] (or dialysis) Procedures Date Code Description Status 01/06/2019 78583 Insertion, Subcutaneous Cardiac Rhythm Monitor Completed 12/31/2018 43764 EKG Tracing & Interpretation Completed 11/28/2018 28885 Treadmill Interp/Report Only Completed 11/28/2018 07960 Stress Test Supervsn W/Out I/R Completed 07/24/2018 92329 ECHO Transthorasic Realtime 2D W Doppler & Color Flow Completed Hosp 09/17/2016 [id number] Mammogram Completed 06/19/2016 73167 Stress ECHO Interpretation/Report Hospital Completed 06/19/2016 96851 Treadmill Interp/Report Only Completed 06/19/2016 92105 Stress Test Supervsn W/Out I/R Completed 05/20/2015 93256 Carpal Tunnel Release Completed 05/20/2015 24788 Neuroplasty &/Or Transposition; Ulnar Nerve AT Elbow Completed 05/20/2015 89199 Neuroplasty &/Or Transposition; Ulnar Nerve AT Elbow Completed 01/27/2015 94433 Carpal Tunnel Release Completed 01/27/2015 58484 Neuroplasty &/Or Transposition; Ulnar Nerve AT Elbow Completed 01/27/2015 03511 Neuroplasty &/Or Transposition; Ulnar Nerve AT Elbow Completed 02/25/2013 71873239 Colonoscopy Completed Encounters Type Date Location Provider Dx Diagnosis Office Visit 01/23/2019 [facility] [address] Martha Castillo MD R00.0 Tachycardia, 4:00p Medicine - Ccmob unspecified I10 Essential (primary) hypertension Z12.31 Encntr screen mammogram for malignant neoplasm of breast Office Visit 01/13/2019 1:45p [facility] Brandon Sr I63.9 Cerebral Of [facility] [address] AT [facility] Meghan Ly infarction, unspecified Z95.818 Presence of other cardiac implants and grafts Z86.73 Prsnl hx of TIA (TIA), and cereb infrc w/o resid deficits Office Visit 12/31/2018 1:00p [facility] Brandon Sr I63.9 Cerebral Of [facility] [address] Meghan Ly infarction, unspecified Z86.73 Prsnl hx of TIA (TIA), and cereb infrc w/o resid deficits R94.31 Abnormal electrocardiogram [ECG] [EKG] Office Visit 12/24/2018 [place] Dimitrios Patino, K50.818 Crohn's disease of 1:00p Neurologic MD both small and lg Services Of [facility] [address] int w oth complication Z86.73 Prsnl hx of TIA (TIA), and cereb infrc w/o resid deficits Office Visit 12/11/2018 3:00p [facility] Rosalina Haji, R53.83 Other fatigue Clinic of [facility] [address] [employer] K50.818 Crohn's disease of both small and lg int w oth complication K21.9 Gastro-esophageal reflux disease without esophagitis Office Visit 11/28/2018 8:35a [facility] Neal Haro R07.89 Other chest Assoc,teja Sifuentes MD pain Hospitalists I63.9 Cerebral infarction, unspecified Office Visit 11/27/2018 8:34a [facility] Brittaney Pettit R07.89 Other chest Assoc,teja Christianson pain Hospitalists R53.1 Weakness K50.90 Crohn's disease, unspecified, without complications Office Visit 11/26/2018 3:40p [facility] [address] Internal Chika Castillo, I63.9 Cerebral Livia Ervin MD infarction, unspecified J30.9 Allergic rhinitis, unspecified R00.0 Tachycardia, unspecified Office Visit 11/25/2018 [facility] K50.90 Crohn's disease, 8:57a Assoc,pc Fanny, WE[employer]ING [employer] OPERATOR unspecified, Hospitalists without complications Z86.73 Prsnl hx of TIA (TIA), and cereb infrc w/o resid deficits R51 Headache Z72.0 Tobacco use Office 11/25/2018 [facility] Dimitrios I63.511 Cereb infrc d/t Visit 7:00a Clinic MD Sukumar unsp occls or stenos of right mid cereb art Office 11/24/2018 [facility] Joslyn K50.90 Crohn's disease, Visit 8:56a Assoc,pc Hospitalists Rooth, DO unspecified, without complications R51 Headache Office Visit 10/31/2018 2:30p [facility], R53.83 Other fatigue Clinic of [facility] [address] [employer]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 [employer] 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 R14.0 Abdominal distension (gaseous) K50.818 Crohn's disease of both small and lg int w oth complication Z86.73 Prsnl hx of TIA (TIA), and cereb infrc w/o resid deficits Office Visit 10/17/2018 [facility] [address] Internal Chika Castillo, I10 Essential 4:00p Denia HOLLEY (primary) hypertension F43.21 Adjustment disorder with depressed mood E87.6 Hypokalemia G62.9 Polyneuropathy, unspecified R64 Cachexia K50.818 Crohn's disease of both small and lg int w oth complication Office Visit 08/29/2018 [employer] [address] Internal Chika Castillo, I63.9 Cerebral 11:20a Denia HOLLEY infarction, unspecified F43.21 Adjustment disorder with depressed mood I10 Essential (primary) hypertension E87.6 Hypokalemia R64 Cachexia Z93.3 Colostomy status K50.818 Crohn's disease of both small and lg int w oth complication G47.00 Insomnia, unspecified Office Visit 07/24/2018 9:12a [facility] Tucker I63.9 Cerebral Assoc,teja Gutierrez M.D. infarction, Hospitalists unspecified K50.90 Crohn's disease, unspecified, without complications I10 Essential (primary) hypertension Office Visit 07/23/2018 Neurohospitalist Mani Banks63.522 Cereb infrc d/t 7:00a Clinic Meghan Amezquita unsp occls or stenos of left ant cereb art Office Visit 07/23/2018 [facility] Tucker I63.9 Cerebral 9:12a Assoc,pc Hospitalists Meghan Gutierrez infarction, unspecified I10 Essential (primary) hypertension K50.90 Crohn's disease, unspecified, without complications Office Visit 07/22/2018 9:11a [facility] Ni I63.9 Cerebral Assoc,pc Senner, DO infarction, Hospitalists unspecified K50.90 Crohn's disease, unspecified, without complications I10 Essential (primary) hypertension Office Visit 06/06/2016 Surgical Caro Lexx K43.2 Incisional hernia 10:45a [facility] [place] without obstruction [facility] [address] or gangrene Office Visit 01/12/2015 Orthopedic Luanne 715.14 Osteoarthrosis 10:00a [facility], [facility] Prim Hand C.M.A. MShubham 354.0 Carpal Tunnel Syndrome 354.2 Lesion Ulnar Nerve 727.03 Trigger Finger Acquired Plan of Treatment Future Appointment(s):03/11/2019 2:30 pm - Rosalina Haji NP at [facility]05/27/2019 4:00 pm - Chika Castillo MD at [facility] [address] [facility]05/25/2019 1:45 pm - Dimitrios Patino MD at [facility]02/27/2019 2:20 pm - Chika Castillo MD at [facility] [address] [facility]02/11/2019 - Rosalina Haji NPG89.29 Other chronic painRecommendations: It sounds like you are having muscle cramps - Recommend Magnesium Glycinate 400 mg absrhM16.818 Crohn's disease of both small and large intestine with otherFollow up:follow up in 4 weeksRecommendations:Discuss with Dr Kwan - Low Dose Naltrexone. If you are refusing biologic agents this may be a good option for you. I will call you next week to discuss. Continue [employer]
--- OUTSIDE RECORDS SUMMARY | 2019-02-16 11:26 | XMS REPORT | Continuity of Care Document ---
:1955 External Reference #:[id number] Author Name Cass Kwan MD Address [address] [place] [id number] Care Team Providers Name Role Phone Chika Castillo M.D. 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 Primary Care Physician Unavailable Payers Date Identification Numbers Payment Provider Subscriber Policy Number: [id number] Medicare Sasha Caryemer PayID: [id number] [facility] [address] [place] [address] Policy Number: [id number] Medicaid/Medicare Sasha Burnette Group Name: 2 1 [facility] [employer] GP PayID: [id number] [address] [place] [address] Problems Active Problems Provider Date Crohn's disease Kevin Kulkarni MD Onset: 01/11/2012 Gastroesophageal reflux disease Kevin Kulkarni MD Onset: 11/28/2012 Vitamin B-complex deficiency Kevin Kulkarni MD Onset: 11/28/2012 Hyperlipidemia Kevin Kulkarni MD Onset: 11/28/2012 Nausea SEEMA Alonzo Onset: 06/14/2014 Malaise and fatigue SEEMA Alonzo Onset: 06/14/2014 Pre-surgery evaluation SEEMA Alonzo Onset: 01/18/2015 Problem Onset: Essential hypertension Kevin Kulkarni MD Onset: 09/07/2016 Family History Date Family Member(s) Observation Comments Father Hypercholesterolemia Social History Type Date Description Comments Sex Unknown Tobacco Use Start: Unknown End: Unknown Patient is a former smoker Smoking Status Reviewed: 01/16/19 Patient is a former smoker Allergies, Adverse Reactions, Alerts Active Allergies Reaction Severity Comments Date Adhesive Tapes (Plastic) Rash And Itching Moderate 04/26/2015 Aspirin 12/30/2015 Azulfidine 12/30/2015 Remicade 12/30/2015 Tetanus Immune Globulin 12/30/2015 Paxil 09/04/2016 Inactive Allergies Aspirin 01/11/2012 Tetanus Toxoids 01/11/2012 Paxil 01/11/2012 Azulfidine 01/11/2012 NKDA 04/27/2015 Medications Active Medications SIG Qnty Indications Ordering Date Provider Stelara inject 1 syringe 1ml Cass 01/12/2019 90mg/ml Soln subcutaneously every Foor-Pessin, Prefill Syringe 8 weeks Protonix take 1 tablet twice 60tabs Cass 12/16/2018 40mg Tablets daily. take 30-60 Foor-Pessin, DR minutes before meal. Omeprazole take 1 capsule by 30caps [facility] 09/02/2018 20mg mouth daily. take Foor-Pessin, Capsules DR 30-60 minutes before MD a meal. Karaya Seal Drainable apply one daily 30units Cass 07/05/2016/12" Length/Belt code: z43.2 ref.# Foor-Pessin, Tabs/Adhesive 3223 -07/23" Misc Pseudoephedrine HCL sig 1 by mouth daily 30tabs [place] 03/06/2016 Bliss, 30mg Tablets [facility] Nrecihp-Ptwhstihm-Dwj Twice Daily Unknown 05/18/2015 c 333-133-5mg Tablets Sucralfate i tablet four times 120tabs Kevin A. 03/22/2015 1gm Tablets a day before meals Shad HOLLEY Cyanocobalamin inject 1 milliliters 3units [facility] 01/14/2015 monthly Foor-Pessin, 1000mcg/ML Solution Cetirizine HCL take one tablet 60tabs [place] 11/22/2014 10mg twice a day Bliss, Tablets [employer] Cimzia Prefilled 2 syringes every 3units Kevin A. 09/07/2014 2X 200 month Shad HOLLEY mg/ML Kit Amlodipine Besylate 1 by mouth every day 30tabs Kevin A. 03/08/2014 Shad HOLLEY 10mg Tablets Lomotil 1-2 tablets every 6 30tabs Kevin Rich 07/04/2012 2.5-0.025mg hours as needed Shad HOLLEY Tablets Clopidogrel Bisulfate Unknown 75mg Tablets [facility] Wort Xtra three times a day Unknown Capsules History Medications Stelara single IV infusion Cass 01/12/2019 - 130mg/26ML weight based 260 MD Aniya 01/12/2019 Solution mg-pt is 47 kg Stelara one injection Cass 01/12/2019 - 45mg/0.5ML subcutaneously every MD Aniya 01/12/2019 Soln Prefill 8 weeks Syringe Karaya Seal 30unit Cass 05/02/2018 - Drainable Pouch/12" s MD Aniya 05/02/2018 Length/Belt Tabs/Adhesive 1-1/2" Misc Augmentin 1 tab by mouth three 21tabs Kevin Kulkarni 09/21/2016 - 500-125mg times a day x 7 days 01/14/2017 Tablets Nicotine once daily 14unit Kevin Kulkarni 09/07/2016 - Transdermal System s 04/08/2018 Step 1 21mg/24HR Patches 24HR Potassium Chloride once daily 30unit Kevin Kulkarni 09/07/2016 - s 04/08/2018 20Meq Packet Lovaza 1 daily 30caps Kevin Kulkarni 09/07/2016 - 1gm Capsules 04/08/2018 Norvasc every day 60tabs Kevin Kulkarni 06/07/2016 - 5mg Tablets 02/02/2017 Cimzia Starter Kit Monthly Unknown 06/07/2016 - 01/14/2017 6X 200 mg/ML Kit Ra Vitamin D-3 2 by mouth every day 60caps Kevin Kulkarni 06/07/2016 - 01/14/2017 2000Unit Capsules Cipro 1 tab by mouth twice 28tabs Meghan Eduardo, 12/30/2015 - 500mg Tablets a day [facility] 01/03/2016 Cipro 1 tab by mouth twice 10tabs Meghan Eduardo, 12/30/2015 - 500mg Tablets a day [facility] 12/30/2015 Bactrim DS 1 by mouth twice a 10tabs Meghan Eduardo, 12/30/2015 - day x 5 days [facility] 12/30/2015 800-160mg Tablets PA Vitamin D-3 2 by mouth every day 60caps Kevin Kulkarni 09/09/2015 - 04/08/2018 2000Unit Capsules Vitamin D3 Super 1 by mouth daily 60tabs Kevin Kulkarni 08/09/2015 - Strength 09/09/2015 2000Unit Tablets Amoxicillin Twice a day for 7 14caps Kianna Menendez, 04/01/2015 - 500mg days [facility] [employer] 06/09/2015 Capsules Cimzia Monthly Unknown 01/20/2015 - 2X 200 mg 06/09/2015 Kit Physicians Ez Use Monthly Unknown 01/20/2015 - B-12 Compliance Kit 01/14/2017 1000mcg/ML Kit ALL Day Allergy D 1 po bid prn 60tabs Kevin Kulkarni 11/19/2014 - congestion 11/22/2014 5-120mg Tablets ER 12HR Lyrica once a day, 30caps Kevin Kulkarni 07/02/2014 - 150mg 01/14/2017 Capsules Amlodipine Besylate 1 by mouth every day 90tabs Kevin Kulkarni 2013 - 03/08/2014 5mg Tablets Cimzia 2 syringes q month 3units Kevin Kulkarni 10/28/2013 - 2X 200 mg/ML 09/07/2014 Kit Medrol Dosepak as directed 1dosep Meghan Jayce, 09/29/2013 - 4mg ack [facility] 12/04/2013 Tablets Levaquin 1 po qd x 1 week 7tabs Meghan Jayce, 09/22/2013 - 500mg [facility] 12/04/2013 Tablets Tramadol HCL take one by mouth 60tabs Kevin Kulkarni 08/04/2013 - 25mg every 6 hours as 06/09/2015 Tablets needed Vitamin B12 1000 mcg monthly 3units Kevin Kulkarni 05/05/2013 - Injection 01/14/2015 Solution Klor-Con M10 Take 1 Daily 30tabs Kevin Kulkarni 05/01/2013 - 10Meq Dissolved In Water 12/04/2013 Tablets ER Prednisone use as directed 100tab Kevin Kulkarni 04/17/2013 - 5mg s 12/04/2013 Tablets Klor-Con 10 1 po daily 30tabs Kevin Kulkarni 03/17/2013 - 10Meq 05/01/2013 Tablets ER Fluconazole 2 tablets today, 15tabs Kevin Kulkarni 02/20/2013 - 100mg then 1 daily for 2 03/16/2013 Tablets weeks Prednisone 3 po qd 60tabs Kevin Kulkarni 01/27/2013 - 10mg 02/24/2013 Tablets Prednisone 3 tablets PO daily 60tabs 555.9 Kevin Kulkarni 01/27/2013 - 10mg 02/24/2013 Tablets Prednisone 2 Tablets Daily 60tabs 555.9 Kevin Kulkarni 01/27/2013 - 10mg 06/02/2013 Tablets Acetaminophen 6 tsp po tid prn- 2-125m Meghan Eduardo, 01/20/2013 - Childrens not to exceed 3000mg l [facility] [employer] 01/20/2015 per day 80mg/2.5ML Suspension Nicotine Step 2 use one patch daily 21unit Kevin Kulkarni 01/20/2013 - as directed s 01/14/2017 14mg/24HR Patches 24HR Imodium A-D 1-2 po tid prn 90tabs Meghan Eduardo, 01/13/2013 - 2mg [employer] [employer] 04/08/2018 Tablets Lorazepam 1 po bid prn 60tabs Meghan Eduardo, 01/06/2013 - 1mg [employer] [employer] 06/09/2015 Tablets Memory Foam Chair to be used as Meghan Eduardo 01/06/2013 - Pad directed [facility] [employer] 01/06/2013 Kariya Seal Drain apply 1 daily//code 30unit Raúl Figueroa, 2012 - Ostomy Bags z43.2 s 07/05/2016 Ciprofloxacin HCL 1 po bid 6tabs Meghan Eduardo, 09/02/2012 - [facility] [employer] 11/28/2012 500mg Tablets Sucralfate take 1 tablet by 120tab Meghan Eduardo, 07/02/2012 - 1gm mouth four times a s [employer] [employer] 12/04/2013 Tablets day 1 hour before meals and at bedtime Claritin-D 12 Hour take 1 tablet by 60tabs Kevin Kulkarni 04/04/2012 - mouth twice a day 11/22/2014 5-120mg Tablets ER 12HR Prednisone 3 tablets PO daily 60tabs 555.9 Kevin Kulkarni 01/11/2012 - 10mg 01/27/2013 Tablets Claritin D 12 bid Kevin Kulkarni 01/11/2012 - 10mg 04/04/2012 Capsules Vitamin B12 Monthly 1tabs Kevin Kulkarni 01/11/2012 - 1000mcg 05/05/2013 Tablets ER Ranitidine HCL take 1 tablet by 30tabs Kevin Kulkarni 12/18/2011 - mouth once daily 01/11/2012 150mg Tablets Cimzia Unknown - 2X 200 mg/ML 09/09/2012 Kit Budesonide take 3 capsules by 90caps Kevin Kulkarni - 3mg Caps mouth once daily 09/09/2012 ER 24HR Nexium take 1 capsule by 30caps Kevin Kulkarni - 40mg mouth once daily 04/26/2015 Capsules Gemfibrozil take 1 tablet by 60tabs Meghan Eduardo, - 600mg mouth twice a day [facility] [employer] 12/04/2013 Tablets Zyrtec Allergy Twice Daily 60tabs Kevin Kulkarni - 10mg 08/29/2016 Tablets Ranitidine HCL take 1 tablet by 30tabs Kevin Kulkarni - mouth twice a day 09/02/2018 150mg Tablets Medications Administered in Office Medication SIG Qnty Indications Ordering Provider Date B12 To 500MG Nurse 01/16/2019 Injection B12 To 500MG Nurse 12/04/2018 Injection Injection Certolizumab Pegol Nurse 12/04/2018 200MG/ML (Cimzia) Injection Injection Certolizumab Pegol Nurse 12/04/2018 200MG/ML (Cimzia) Injection B12 To 500MG Nurse 11/05/2018 Injection Injection Certolizumab Pegol Nurse 11/05/2018 200MG/ML (Cimzia) Injection Injection Certolizumab Pegol Nurse 11/05/2018 200MG/ML (Cimzia) Injection B12 To 500MG Nurse 10/01/2018 Injection Injection Certolizumab Pegol Nurse 10/01/2018 200MG/ML (Cimzia) Injection Injection Certolizumab Pegol Nurse 10/01/2018 200MG/ML (Cimzia) Injection B12 To 500MG Cass Kwan MD 09/02/2018 Injection Injection Certolizumab Pegol Cass Kwan MD 09/02/2018 200MG/ML (Cimzia) Injection Injection Certolizumab Pegol Cass Kwan MD 09/02/2018 200MG/ML (Cimzia) Injection B12 To 500MG Nurse 06/26/2018 Injection Injection Certolizumab Pegol Nurse 06/26/2018 200MG/ML (Cimzia) Injection Injection Certolizumab Pegol Nurse 06/26/2018 200MG/ML (Cimzia) Injection B12 To 500MG Nurse 05/21/2018 Injection Injection Certolizumab Pegol Nurse 05/21/2018 200MG/ML (Cimzia) Injection Injection Certolizumab Pegol Nurse 05/21/2018 200MG/ML (Cimzia) Injection B12 To 500MG Nurse 04/16/2018 Injection Injection Certolizumab Pegol Nurse 04/16/2018 200MG/ML (Cimzia) Injection Injection Certolizumab Pegol Nurse 04/16/2018 200MG/ML (Cimzia) Injection B12 To 500MG Nurse 02/01/2017 Injection Injection Certolizumab Pegol Nurse 02/01/2017 200MG/ML (Cimzia) Injection Injection Certolizumab Pegol Nurse 02/01/2017 200MG/ML (Cimzia) Injection B12 To 500MG Nurse 12/24/2016 Injection Injection Certolizumab Pegol Nurse 12/24/2016 200MG/ML (Cimzia) Injection Injection Certolizumab Pegol Nurse 12/24/2016 200MG/ML (Cimzia) Injection B12 To 500MG Nurse 11/16/2016 Injection Injection Certolizumab Pegol Nurse 11/16/2016 200MG/ML (Cimzia) Injection Injection Certolizumab Pegol Nurse 11/16/2016 200MG/ML (Cimzia) Injection B12 To 500MG Nurse 10/19/2016 Injection Injection Certolizumab Pegol Nurse 10/19/2016 200MG/ML (Cimzia) Injection Injection Certolizumab Pegol Nurse 10/19/2016 200MG/ML (Cimzia) Injection B12 To 500MG Nurse 09/13/2016 Injection Injection Certolizumab Pegol Nurse 09/13/2016 200MG/ML (Cimzia) Injection Injection Certolizumab Pegol Nurse 09/13/2016 200MG/ML (Cimzia) Injection B12 To 500MG Nurse 07/27/2016 Injection Injection Certolizumab Pegol Nurse 07/27/2016 200MG/ML (Cimzia) Injection Injection Certolizumab Pegol Nurse 07/27/2016 200MG/ML (Cimzia) Injection B12 To 500MG Nurse 06/28/2016 Injection Injection Certolizumab Pegol Nurse 06/28/2016 200MG/ML (Cimzia) Injection Injection Certolizumab Pegol Nurse 06/28/2016 200MG/ML (Cimzia) Injection B12 To 500MG Nurse 05/28/2016 Injection Injection Certolizumab Pegol Nurse 05/28/2016 200MG/ML (Cimzia) Injection Injection Certolizumab Pegol Nurse 05/28/2016 200MG/ML (Cimzia) Injection B12 To 500MG Nurse 04/23/2016 Injection Injection Certolizumab Pegol Nurse 04/23/2016 200MG/ML (Cimzia) Injection Injection Certolizumab Pegol Nurse 04/23/2016 200MG/ML (Cimzia) Injection B12 To 500MG Nurse 03/22/2016 Injection Injection Certolizumab Pegol Nurse 03/22/2016 200MG/ML (Cimzia) Injection Injection Certolizumab Pegol Nurse 03/22/2016 200MG/ML (Cimzia) Injection B12 To 500MG Nurse 02/08/2016 Injection Injection Certolizumab Pegol Nurse 02/08/2016 200MG/ML (Cimzia) Injection Injection Certolizumab Pegol Nurse 02/08/2016 200MG/ML (Cimzia) Injection B12 To 500MG Nurse 01/11/2016 Injection Injection Certolizumab Pegol Nurse 01/11/2016 200MG/ML (Cimzia) Injection Injection Certolizumab Pegol Nurse 01/11/2016 200MG/ML (Cimzia) Injection B12 To 500MG Nurse 12/02/2015 Injection Injection Certolizumab Pegol Nurse 12/02/2015 200MG/ML (Cimzia) Injection Injection Certolizumab Pegol Nurse 12/02/2015 200MG/ML (Cimzia) Injection B12 To 500MG Nurse 11/04/2015 Injection Injection Certolizumab Pegol Nurse 11/04/2015 200MG/ML (Cimzia) Injection Injection Certolizumab Pegol Nurse 11/04/2015 200MG/ML (Cimzia) Injection B12 To 500MG Nurse 10/07/2015 Injection B12 To 500MG Nurse 09/09/2015 Injection Injection Certolizumab Pegol Nurse 09/09/2015 200MG/ML (Cimzia) Injection Injection Certolizumab Pegol Nurse 09/09/2015 200MG/ML (Cimzia) Injection B12 To 500MG Kevin Kulkarni MD 08/02/2015 Injection Injection Certolizumab Pegol Nurse 08/02/2015 200MG/ML (Cimzia) Injection Injection Certolizumab Pegol Nurse 08/02/2015 200MG/ML (Cimzia) Injection B12 To 500MG Nurse 07/07/2015 Injection Injection Certolizumab Pegol Nurse 07/07/2015 200MG/ML (Cimzia) Injection B12 To 500MG Kevin Kulkarni MD 06/07/2015 Injection B12 To 500MG Nurse 04/14/2015 Injection B12 To 500MG Nurse 03/17/2015 Injection B12 To 500MG Nurse 02/17/2015 Injection B12 To 500MG Nurse 01/13/2015 Injection B12 To 500MG Nurse 12/10/2014 Injection B12 To 500MG Nurse 11/04/2014 Injection B12 To 500MG Kevin Kulkarni MD 09/30/2014 Injection B12 To 500MG Nurse 09/30/2014 Injection B12 To 500MG Nurse 08/27/2014 Injection B12 To 500MG Kevin Kulkarni MD 07/21/2014 Injection Injection Certolizumab Pegol Nurse 07/21/2014 200MG/ML (Cimzia) Injection B12 To 500MG SEEMA Alonzo 06/14/2014 Injection B12 To 500MG Kevin Kulkarni MD 04/06/2014 Injection B12 To 500MG Kevin Kulkarni MD 02/25/2014 Injection B12 To 500MG Kevin Kulkarni MD 01/12/2014 Injection B12 To 500MG Kevin Kulkarni MD 12/04/2013 Injection B12 To 500MG Raúl Figueroa MD 11/05/2013 Injection B12 To 500MG 08/07/2013 Injection B12 To 500MG Kevin Kulkarni MD 07/06/2013 Injection B12 To 500MG Kevin Kulkarni MD 06/02/2013 Injection B12 To 500MG Kevin Kulkarni MD 04/30/2013 Injection B12 To 500MG Kevin Kulkarni MD 12/24/2012 Injection B12 To 500MG Kevin Kulkarni MD 11/07/2012 Injection B12 To 500MG Kevin Kulkarni MD 08/05/2012 Injection B12 To 500MG Kevin Kulkarni MD 04/30/2012 Injection B12 To 500MG Kevin Kulkarni MD 04/01/2012 Injection B12 To 500MG Kevin Kulkarni MD 05/08/2011 Injection Tuberculosis (Intradermal) Kevin Kulkarni MD 03/16/2011 Injection B12 To 500MG Kevin Kulkarni MD 08/01/2010 Injection Depo-Medrol Kevin Kulkarni MD 05/19/2010 Injection B12 To 500MG Kevin Kulkarni MD 04/11/2010 Injection B12 To 500MG Kevin Kulkarni MD 02/28/2010 Injection B12 To 500MG Kevin Kulkarni MD 01/31/2010 Injection B12 To 500MG Kevin Kulkarni MD 12/26/2009 Injection B12 To 500MG Kevin Kulkarni MD 11/14/2009 Injection B12 To 500MG Kevin Kulkarni MD 10/12/2009 Injection B12 To 500MG Kevin Kulkarni MD 09/01/2009 Injection B12 To 500MG Panfilo Mejia M.D. 07/25/2009 Injection B12 To 500MG Kevin Kulkarni MD 07/07/2009 Injection B12 To 500MG Meghan Eduardo [employer] 05/25/2009 Injection B12 To 500MG RADHA ChappellP-C 04/18/2009 Injection B12 To 500MG Meghan Eduardo, [employer] 03/21/2009 Injection Depo-Medrol Kevin Kulkarni MD 03/11/2009 Injection B12 To 500MG Kevin Kulkarni MD 01/20/2009 Injection B12 To 500MG Kevin Kulkarni MD 10/29/2008 Injection B12 To 500MG Kevin Kulkarni MD 08/03/2008 Injection B12 To 500MG Kevin Kulkarni MD 06/23/2008 Injection B12 To 500MG Kevin Kulkarni MD 03/31/2008 Injection B12 To 500MG Kevin Kulkarni MD 11/27/2007 Injection B12 To 500MG Kevin Kulkarni MD 10/30/2007 Injection B12 To 500MG Kevin Kulkarni MD 09/25/2007 Injection B12 To 500MG Kevin Kulkarni MD 07/29/2007 Injection B12 To 500MG Kevin Kulkarni MD 07/01/2007 Injection B12 To 500MG Kevin Kulkarni MD 06/03/2007 Injection B12 To 500MG Kevin Kulkarni MD 04/29/2007 Injection B12 To 500MG Kevin Kulkarni MD 10/30/2005 Injection B12 To 500MG Kevin Kulkarni MD 03/09/2004 Injection Immunizations CPT Code Status Date Vaccine Lot # [id number] Given 08/29/2016 Td Preservative Free For Use In Individuals 7 Yrs Or [id number] Older 63383 Given 04/26/2010 Influenza [place], [place] [address] Given 04/26/2009 Influenza [place], [place] [address] Given 05/10/2008 Pneumovax 27023 Given 05/10/2008 Influenza Virus [place], [place] [address] Given 05/13/2007 Influenza Virus [place], [place] [address] Given 06/11/2006 Influenza Virus Vaccine, Split Virus, Im Vital Signs Date Vital Result Comment 12/16/2018 3:18pm Height 64 inches 5'4" Weight 104.00 lb BP Systolic 128 mmHg BP Diastolic 70 mmHg Heart Rate 90 /min BMI (Body Mass Index) 17.8 kg/m2 10/01/2018 2:17pm Height 64 inches 5'4" Weight 96.00 lb BMI (Body Mass Index) 16.5 kg/m2 09/02/2018 1:38pm Height 64 inches 5'4" Weight 94.38 lb BP Systolic 152 mmHg BP Diastolic 81 mmHg Heart Rate 88 /min BMI (Body Mass Index) 16.2 kg/m2 05/13/2018 2:02pm Height 64 inches 5'4" Weight 84.00 lb BP Systolic 160 mmHg BP Diastolic 82 mmHg Heart Rate 108 /min BMI (Body Mass Index) 14.4 kg/m2 04/16/2018 2:39pm Height 64 inches 5'4" Weight 87.50 lb BMI (Body Mass Index) 15.0 kg/m2 04/08/2018 2:14pm Height 64 inches 5'4" Weight 88.00 lb BP Systolic 136 mmHg BP Diastolic 92 mmHg Heart Rate 109 /min BMI (Body Mass Index) 15.1 kg/m2 09/07/2016 2:38pm BP Systolic 140 mmHg BP Diastolic 83 mmHg 09/07/2016 2:08pm Height 64 inches 5'4" Weight 96.00 lb BMI (Body Mass Index) 16.5 kg/m2 03/06/2016 2:41pm Height 64 inches 5'4" Weight 96.00 lb BP Systolic 132 mmHg BP Diastolic 84 mmHg Heart Rate 88 /min BMI (Body Mass Index) 16.5 kg/m2 02/13/2016 2:23pm Height 64 inches 5'4" Weight 96.00 lb BMI (Body Mass Index) 16.5 kg/m2 11/01/2015 2:27pm Height 64 inches 5'4" Weight 97.50 lb BP Systolic 118 mmHg BP Diastolic 78 mmHg Heart Rate 78 /min BMI (Body Mass Index) 16.7 kg/m2 08/02/2015 2:04pm Height 64 inches 5'4" Weight 91.00 lb BP Systolic 108 mmHg BP Diastolic 68 mmHg Heart Rate 72 /min BMI (Body Mass Index) 15.6 kg/m2 07/07/2015 2:54pm Height 64 inches 5'4" Weight 93.00 lb BMI (Body Mass Index) 16.0 kg/m2 06/09/2015 3:03pm Height 64 inches 5'4" Weight 93.00 lb BMI (Body Mass Index) 16.0 kg/m2 05/04/2015 11:08am Height 64 inches 5'4" Weight 91.00 lb BP Systolic 118 mmHg BP Diastolic 72 mmHg Heart Rate 102 /min BMI (Body Mass Index) 15.6 kg/m2 04/01/2015 1:09pm Height 64 inches 5'4" Weight 97.50 lb BP Systolic 120 mmHg BP Diastolic 88 mmHg Heart Rate 94 /min BMI (Body Mass Index) 16.7 kg/m2 01/18/2015 3:22pm Height 64 inches 5'4" Weight 97.00 lb BP Systolic 110 mmHg BP Diastolic 58 mmHg Heart Rate 80 /min BMI (Body Mass Index) 16.6 kg/m2 11/19/2014 2:22pm Height 64 inches 5'4" Weight 95.50 lb BP Systolic 124 mmHg BP Diastolic 80 mmHg Heart Rate 90 /min BMI (Body Mass Index) 16.4 kg/m2 07/21/2014 2:57pm Height 64 inches 5'4" Weight 94.00 lb BMI (Body Mass Index) 16.1 kg/m2 07/21/2014 11:57am Height 64 inches 5'4" 07/02/2014 2:36pm Height 64 inches 5'4" Weight 94.50 lb BP Systolic 122 mmHg BP Diastolic 80 mmHg Heart Rate 96 /min BMI (Body Mass Index) 16.2 kg/m2 06/14/2014 12:11pm Height 64 inches 5'4" BP Systolic 110 mmHg BP Diastolic 70 mmHg Heart Rate 72 /min 04/06/2014 2:18pm Height 64 inches 5'4" Weight 96.50 lb BP Systolic 118 mmHg BP Diastolic 88 mmHg Heart Rate 108 /min BMI (Body Mass Index) 16.6 kg/m2 02/15/2014 11:49am Height 64 inches 5'4" Weight 100.00 lb BP Systolic 160 mmHg BP Diastolic 90 mmHg Heart Rate 88 /min BMI (Body Mass Index) 17.2 kg/m2 12/04/2013 2:05pm Height 64 inches 5'4" Weight 104.00 lb BP Systolic 120 mmHg BP Diastolic 80 mmHg Heart Rate 72 /min BMI (Body Mass Index) 17.8 kg/m2 09/22/2013 10:49am Height 64 inches 5'4" Weight 94.50 lb temp. 97.1 F BP Systolic 114 mmHg BP Diastolic 82 mmHg Heart Rate 104 /min BMI (Body Mass Index) 16.2 kg/m2 08/04/2013 2:11pm Height 64 inches 5'4" Weight 100.00 lb BP Systolic 120 mmHg BP Diastolic 70 mmHg Heart Rate 72 /min BMI (Body Mass Index) 17.2 kg/m2 06/02/2013 1:41pm Height 64 inches 5'4" Weight 104.00 lb BP Systolic 130 mmHg BP Diastolic 80 mmHg Heart Rate 92 /min BMI (Body Mass Index) 17.8 kg/m2 04/17/2013 2:03pm Height 64 inches 5'4" Weight 102.00 lb BP Systolic 130 mmHg BP Diastolic 77 mmHg Heart Rate 78 /min BMI (Body Mass Index) 17.5 kg/m2 03/17/2013 1:26pm Height 64 inches 5'4" Weight 88.00 lb BMI (Body Mass Index) 15.1 kg/m2 03/16/2013 11:18am Height 64 inches 5'4" Weight 88.00 lb BP Systolic 132 mmHg BP Diastolic 70 mmHg Heart Rate 88 /min BMI (Body Mass Index) 15.1 kg/m2 02/24/2013 11:58am Height 64 inches 5'4" Weight 81.00 lb BP Systolic 102 mmHg BP Diastolic 72 mmHg Heart Rate 112 /min O2 Sat 96% BMI (Body Mass Index) 13.9 kg/m2 02/10/2013 10:16am Height 64 inches 5'4" Weight 91.00 lb BMI (Body Mass Index) 15.6 kg/m2 02/03/2013 11:01am Height 64 inches 5'4" Weight 90.00 lb BP Systolic 108 mmHg BP Diastolic 88 mmHg Heart Rate 96 /min BMI (Body Mass Index) 15.4 kg/m2 01/27/2013 8:44am Height 64 inches 5'4" Weight 84.00 lb BMI (Body Mass Index) 14.4 kg/m2 01/20/2013 1:32pm Height 64 inches 5'4" Weight 89.00 lb BP Systolic 122 mmHg BP Diastolic 84 mmHg Heart Rate 84 /min BMI (Body Mass Index) 15.3 kg/m2 01/06/2013 3:14pm Height 64 inches 5'4" Weight 97.00 lb BP Systolic 130 mmHg BP Diastolic 80 mmHg Heart Rate 68 /min BMI (Body Mass Index) 16.6 kg/m2 11/28/2012 4:00pm Height 64 inches 5'4" Weight 102.00 lb BP Systolic 142 mmHg BP Diastolic 84 mmHg Heart Rate 84 /min BMI (Body Mass Index) 17.5 kg/m2 09/09/2012 11:16am Height 64 inches 5'4" Weight 108.00 lb BP Systolic 118 mmHg BP Diastolic 80 mmHg Heart Rate 82 /min BMI (Body Mass Index) 18.5 kg/m2 08/13/2012 1:10pm Height 64 inches 5'4" Weight 105.00 lb BP Systolic 138 mmHg BP Diastolic 82 mmHg Heart Rate 96 /min BMI (Body Mass Index) 18.0 kg/m2 07/29/2012 1:52pm Height 64 inches 5'4" Weight 101.50 lb BP Systolic 132 mmHg BP Diastolic 78 mmHg Heart Rate 78 /min BMI (Body Mass Index) 17.4 kg/m2 07/02/2012 10:41am Height 64 inches 5'4" Weight 97.00 lb BP Systolic 120 mmHg BP Diastolic 72 mmHg Heart Rate 88 /min BMI (Body Mass Index) 16.6 kg/m2 04/01/2012 11:24am Height 64 inches 5'4" Weight 97.00 lb BP Systolic 120 mmHg BP Diastolic 84 mmHg Heart Rate 80 /min BMI (Body Mass Index) 16.6 kg/m2 2012 11:32am Height 64 inches 5'4" Weight 96.00 lb BP Systolic 128 mmHg BP Diastolic 70 mmHg Heart Rate 82 /min BMI (Body Mass Index) 16.5 kg/m2 01/11/2012 1:48pm Height 64 inches 5'4" Weight 100.00 lb BP Systolic 150 mmHg BP Diastolic 90 mmHg Heart Rate 80 /min BMI (Body Mass Index) 17.2 kg/m2 Results Test Date Facility Test Result H/L Range Note Laboratory test 12/29/2018 [facility] [place] Clotest SEE RESULT 1, 2 finding BELOW Laboratory test 12/29/2018 [facility] [place] Surgical Pathology SEE RESULT 3, 4 finding Order BELOW Laboratory test 12/01/2018 [facility] [place] Miscellaneous Test TNP 5 finding CBC Auto Diff 12/01/2018 [facility] [place] White Blood Count 6.0 10^3/uL N 3.5-10.8 Red Blood Count 3.87 10^6/uL N 3.70-4.87 Hemoglobin 12.4 g/dL N 12.0-16.0 Hematocrit 37 % N 35-47 Mean Corpuscular Volume 95 fL N 80-97 Mean Corpuscular Hemoglobin 32 pg High 27-31 Mean Corpuscular HGB Conc 34 g/dL N 31-36 Red Cell Distribution Width 13 % N 10.5-15 Platelet Count 211 10^3/uL N 150-450 Mean Platelet Volume 7.8 fL N 7.4-10.4 Abs Neutrophils 3.2 10^3/uL N 1.5-7.7 Abs Lymphocytes 2.3 10^3/uL N 1.0-4.8 Abs Monocytes 0.4 10^3/uL N 0-0.8 Abs Eosinophils 0.1 10^3/uL N 0-0.6 Abs Basophils 0.0 10^3/uL N 0-0.2 Abs Nucleated RBC 0.0 10^3/uL Granulocyte % 52.5 % Lymphocyte % 38.6 % Monocyte % 7.1 % Eosinophil % 1.1 % Basophil % 0.7 % Nucleated Red Blood Cells % 0.1 Comp Metabolic Panel 12/01/2018 [facility] [place] Sodium 142 mmol/L N 135-145 Potassium 3.9 mmol/L N 3.5-5.0 Chloride 105 mmol/L N 101-111 Co2 Carbon Dioxide 30 mmol/L N 22-32 Anion Gap 7 mmol/L N 2-11 Glucose 94 mg/dL N 70-100 Blood Urea Nitrogen 10 mg/dL N 6-24 Creatinine 0.93 mg/dL N 0.51-0.95 BUN/Creatinine Ratio 10.8 N 8-20 Calcium 9.3 mg/dL N 8.6-10.3 Total Protein 6.9 g/dL N 6.4-8.9 Albumin 4.3 g/dL N 3.2-5.2 Globulin 2.6 g/dL N 2-4 Albumin/Globulin Ratio 1.7 N 1-3 Total Bilirubin 0.40 mg/dL N 0.2-1.0 Alkaline Phosphatase 59 U/L N 34-104 Alt 16 U/L N 7-52 Ast 15 U/L N 13-39 Egfr Non- 60.5 >60 Egfr 73.2 >60 6 Laboratory test finding 12/01/2018 [facility] C Reactive Protein < 1.00 mg/L N < 8.01 7 Vitamin D Total 25(Oh) 23.0 ng/mL N 20-50 8 Laboratory test 12/01/2018 [facility] Miscellaneous See Scanned 9 finding Test Repo <SEE NOTE> Laboratory test 06/03/2018 [facility] Breath Test Sbbo NEGATIVE finding [address] ([place]ai) [place] [address] [phone] Laboratory test 04/19/2018 [facility] C Difficile PCR SEE RESULT 10 finding BELOW CBC W/Auto 04/08/2018 [facility] White Blood Count 7.8 3/ UL 4.8- Differential(!) 2435 [facility] Ser Auto CNT 10.8 [place] [address] [phone] RBC Red Blood Count 4.72 X106/UL 4.20-6.20 Hemoglobin Blood 15.1 g/dL 12.0-18.0 Hematocrit 48.0 % 35-52 MCV (Corpuscular Volume) 101.6 FL High 79-97 MCH (Corpuscular Hemoglobin) 32.0 pg High 27-31 MCHC (Corpuscular Hemog Conc) 31.5 g/dL Low 32.0-36.0 RDW 15.8 % High 10.5-15.0 Platelet Count Blood Auto CNT 206 X103/UL 150-450 MPV 5.9 FL Low 7.4-10.4 Lymph% 36.4 % 20.0-45.0 Hanson% 4.4 % 1.0-9.0 Neutrophil % 59.2 % 38.0-83.0 Absolute Lymphocytes 2.8 X103/UL 1.0-4.8 Absolute Monocytes 0.3 X103/UL 0.0-0.8 Absolute Neutrophils 4.6 X103/UL 1.5-7.7 CMP(!) 04/08/2018 [facility] Sodium(!) 138 mEq/L 134- 149 [facility] [place] [address] [phone] Potassium(!) 3.3 mEq/L Low 3.6-5.5 Chloride Serum/Plasma(!) 105 mEq/L 94-112 Carbon Dioxide Ser/Plasm(!) 27 mEq/L 21-33 BUN - Urea Nitrogen(!) 10 mg/dL 6-24 Calcium Ser/Plasma Mass/Vol(!) 9.7 mg/dL 8.6-10.2 Creatinine Serum Mass/Vol(!) 0.7 mg/dL 0.5-1.4 Glucose Serum(!) 121 mg/dL High 70-105 BUN/Creatinine Ratio(!) 14.3 RATIO 8.0-36 Albumin Serum/Plasma(!) 4.8 g/dL 3.5-5.2 Alkaline Phosphatase(!) 79 U/L 39-117 Bilirubin Total Mass/Vol 0.6 mg/dL 0.2-1.3 Ast - Sgot 24 U/L 5-34 Alt - SGPT 19 U/L 10-40 Protein Total 7.5 g/dL 6.2-8.1 Laboratory test finding 04/08/2018 [facility] Vitamin B12 540 pg/mL N 180-914 11 Iron & Iron Binding Capacity 04/08/2018 [facility] Iron 110 g/dL N 50-212 Unsaturated Iron Binding 405 g/dL Total Iron Binding Capacity 515 g/dL High 250-450 Transferrin 368 mg/dL High 203-362 % Iron Saturation 21 % N 15-55 Laboratory test 04/08/2018 [facility] C-Reative Protein < 0.5 <5.0 finding 2435 [place] [address] [phone] Ferritin Ser/Plas Mass/Vol(!) 56.4 ng/dL 24-250 CBC W/Auto 08/28/2016 [facility] White 8.8 3/UL 4.8- 10.8 Differential(!) 2435 [facility] [place] [address] Count Ser [phone] Auto CNT RBC Red Blood Count 4.94 X106/UL 4.20-6.20 Hemoglobin Blood 15.9 g/dL 12.0-18.0 Hematocrit 47.4 % 35-52 MCV (Corpuscular Volume) 96.0 FL 79-97 MCH (Corpuscular Hemoglobin) 32.2 pg High 27-31 MCHC (Corpuscular Hemog Conc) 33.5 g/dL 32.0-36.0 RDW 13.5 % 10.5-15.0 Platelet Count Blood Auto CNT 234 X103/UL 150-450 MPV 6.3 FL Low 7.4-10.4 Lymph% 32.7 % 20.0-45.0 Hanson% 5.5 % 1.0-9.0 Neutrophil % 61.8 % 38.0-83.0 Absolute Lymphocytes 2.9 X103/UL 1.0-4.8 Absolute Monocytes 0.5 X103/UL 0.0-0.8 Absolute Neutrophils 5.4 X103/UL 1.5-7.7 CMP(!) 08/28/2016 [facility] Sodium(!) 138 mEq/L 134- 149 [address] [place] [address] [phone] Potassium(!) 3.4 mEq/L Low 3.6-5.5 Chloride Serum/Plasma(!) 108 mEq/L 94-112 Carbon Dioxide Ser/Plasm(!) 22 mEq/L 21-33 BUN - Urea Nitrogen(!) 9 mg/dL 6-24 Calcium Ser/Plasma Mass/Vol(!) 9.2 mg/dL 8.6-10.2 Creatinine Serum Mass/Vol(!) 0.6 mg/dL 0.5-1.4 Glucose Serum(!) 100 mg/dL 70-105 Uric Acid Ser/Plas Mass/Vol(!) 3.6 mg/dL 2.6-7.2 BUN/Creatinine Ratio(!) 15 RATIO 8.0-36 Albumin Serum/Plasma(!) 4.7 g/dL 3.5-5.2 Alkaline Phosphatase(!) 75 U/L 39-117 Bilirubin Total Mass/Vol 0.6 mg/dL 0.2-1.3 Ast - Sgot 17 U/L 5-34 Alt - SGPT 14 U/L 10-40 Protein Total 7.5 g/dL 6.2-8.1 Lipid Panel(!) 08/28/2016 [facility] Cholesterol 195 mg/ dL [phone] [facility] Total Mass/[place] [address] [phone] HDL Cholesterol Mol/Vol 40 30-85 Triglycerides Ser/Plas Mass/VL 434 mg/dL High 30-150 LDL Cholesterol Mass/Vol(!) 68 mg/dL 0-130 Ua Dipstick 08/28/2016 [facility] Ua Color YELLOW Macroscopic(!) [address] [place] [address] [phone] Ua Appearance CLEAR Ua Specific [place] 1.010 GM/ML 1.00-1.035 Ua PH Test 6.5 units 5.0-8.0 Ua Leukocytes NEG Ua Nitrite NEG Ua Protein NEG Ua Glucose QL NEG Ua Ketones NEG Ua Urobilinogen NEG Ua Bilirubin NEG Ua Blood Qual NEG Laboratory test 08/28/2016 [facility] Vitamin B12 350 pg/mL N 180-914 12 finding Laboratory test 06/07/2016 [facility] Troponin I 0.02 ng/mL N <0.03 13 finding Laboratory Studies 06/07/2016 N2N/CCD Import Absolute 0.1 10^3/ul 0-0.2 Basophils (auto) Absolute Eosinophils (auto) 0.1 10^3/ul 0-0.6 Absolute Lymphocytes (auto) 3.2 10^3/ul 1.0-4.8 Absolute Monocytes (auto) 0.8 10^3/ul 0-0.8 Absolute Neutrophils (auto) 7.0 10^3/ul 1.5-7.7 Activated Partial Thromboplast Time 26.2 seconds 26.0-36.3 Alanine Aminotransferase (Alt/SGPT) 15 U/L 7-52 Albumin 4.2 g/dL 3.2-5.2 Albumin/Globulin Ratio 1.3 1-3 Alkaline Phosphatase 60 U/L 34-104 Anion Gap 6 mmol/L 2-11 Aspartate Amino Transf (Ast/Sgot) 19 U/L 13-39 B-Type Natriuretic Peptide 17 pg/mL BUN/Creatinine Ratio 17.1 8-20 Basophils (%) (Auto) 1.2 % 0-2 Blood Urea Nitrogen 12 mg/dL 6-24 Calcium Level 9.1 mg/dL 8.6-10.3 Carbon Dioxide Level 27 mmol/L 22-32 Chloride Level 104 mmol/L 101-111 Creatinine 0.70 mg/dL 0.51-0.95 D-Dimer, Quantitative 209 ng/mL 0-230 Eosinophils (%) (Auto) 0.5 % 0-6 Estimated GFR () 108.7 Estimated GFR (Non- 84.5 Globulin 3.3 g/dL 2-4 Glucose Level 105 mg/dL High 70-100 Hematocrit 43 % 35-47 Hemoglobin 14.8 g/dL 12.0-16.0 International Ratio (Anticoag Ther) 0.83 Low 0.89-1.11 Lactic Acid Level 1.2 mmol/L 0.5-2.0 Lymphocytes (%) (Auto) 28.9 % 25-47 Mean Corpuscular Hemoglobin 32 pg High 27-31 Mean Corpuscular Hemoglobin Concent 34 g/dL 31-36 Mean Corpuscular Volume 93 fL 80-97 Mean Platelet Volume 7 um3 Low 7.4-10.4 Monocytes (%) (Auto) 7.2 % 1-9 Neutrophils (%) (Auto) 62.2 % 38-83 Nucleated RBC Absolute Count (auto) 0 10^3/ul Nucleated Red Blood Cells % 0 Platelet Count 191 10^3/ul 150-450 Potassium Level 3.0 mmol/L Low 3.5-5.0 Red Blood Count 4.67 10^6/ul 4.0-5.4 Red Cell Distribution Width 13 % 10.5-15 Sodium Level 137 mmol/L 133-145 Total Bilirubin 0.40 mg/dL 0.2-1.0 Total Protein 7.5 g/dL 6.4-8.9 White Blood Count 11.2 10^3/ul High 3.5-10.8 Laboratory test 03/06/2016 [facility] Vitamin D 29.3 ng/mL Low 30-50 14 finding Total 25(Oh) Ua Dipstick 01/05/2016 [facility] Ua Color DARK YELLOW Macroscopic(!) [address] [place] [address] [phone] Ua Appearance CLEAR Ua Specific [place] 1.015 GM/ML 1.00-1.035 Ua PH Test 6.0 units 5.0-8.0 Ua Leukocytes NEG Ua Nitrite NEG Ua Protein NEG Ua Glucose QL NEG Ua Ketones NEG Ua Urobilinogen NEG Ua Bilirubin NEG Ua Blood Qual NEG Urinalysis Profile 12/30/2015 [facility] [place] Urine Color Yellow N Urine Appearance Cloudy N Urine Specific [place] 1.008 Low 1.010-1.030 Urine pH 6.0 N 5-9 Urine Urobilinogen Negative N Negative Urine Ketones Negative N Negative Urine Protein Negative N Negative Urine Leukocytes 3+ Abnormal Negative Urine Blood 1+ Abnormal Negative Urine Nitrite Negative N Negative Urine Bilirubin Negative N Negative Urine Glucose Negative N Negative Urine White Blood Cell 3+(>20/hpf) Abnormal Absent Urine Red Blood Cell 1+(3-5/hpf) Abnormal Absent Urine Bacteria 1+ Abnormal Absent Urine Squamous Epithelial Cell Present Abnormal Absent Urine Transitional Epithelial Present Abnormal Absent Laboratory test 12/30/2015 [facility] Urine Culture And SEE RESULT 15 finding Sensitivities BELOW Laboratory test 10/03/2015 [facility] Vitamin D Total 23.3 ng/mL Low 30-5 finding 25(Oh) 0 CBC W/Auto 08/02/2015 [facility] White Blood Count 10.5 3/ UL 4.8- Differential(!) 2435 [facility] Ser Auto CNT 10.8 [place] [address] [phone] RBC Red Blood Count 4.45 X106/UL 4.20-6.20 Hemoglobin Blood 14.2 g/dL 12.0-18.0 Hematocrit 44.7 % 35-52 MCV (Corpuscular Volume) 100.3 FL High 79-97 MCH (Corpuscular Hemoglobin) 31.8 pg High 27-31 MCHC (Corpuscular Hemog Conc) 31.7 g/dL Low 32.0-36.0 RDW 15.1 % High 10.5-15.0 Platelet Count Blood Auto CNT 228 X103/UL 150-450 MPV 5.9 FL Low 7.4-10.4 Lymph% 25.5 % 20.0-45.0 Hanson% 2.3 % 1.0-9.0 Neutrophil % 72.2 % 38.0-83.0 Absolute Lymphocytes 2.7 X103/UL 1.0-4.8 Absolute Monocytes 0.2 X103/UL 0.0-0.8 Absolute Neutrophils 7.6 X103/UL 1.5-7.7 Laboratory test 08/02/2015 [facility] C-Reative <0.5 < 5.0 finding 24[address] [facility] [place] [address] [phone] Liver Function 08/02/2015 [facility] Albumin 4.5 g/dL 3.5-5.2 Panel(!) 2435 [facility] Serum/Plasma(!) [place] [address] [phone] Alkaline Phosphatase(!) 80 U/L 39-117 Bilirubin Direct Mass/Vol(!) 0.1 mg/dL 0.0-0.6 Bilirubin Total Mass/Vol 0.3 mg/dL 0.2-1.3 Ast - Sgot 10 U/L 5-34 Alt - SGPT 13 U/L 10-40 Total Protein 7.4 g/dL 6.2-8.1 Laboratory test finding 08/02/2015 [facility] Vitamin B12 347 pg/mL N 180-914 16 Folic Acid (Folate) > 20.00 ng/mL N >3.99 Vitamin D Total 25(Oh) 19.8 ng/mL Low 30-50 Selenium 104 ng/mL N 70-150 17 Zinc Serum 0.68 g/mL N 0.66-1.10 18 Laboratory test finding 05/04/2015 [facility] Lipase 91 U/L High 11.0-82.0 C Reactive Protein 4.05 mg/L N < 5.00 19 CMP(!) 05/04/2015 [facility] Sodium(!) 140 mEq/L 134- 149 [address] [place] [address] [phone] Potassium(!) 3.7 mEq/L 3.6-5.5 Chloride Serum/Plasma(!) 102 mEq/L 94-112 Carbon Dioxide Ser/Plasm(!) 26 mEq/L 21-33 BUN - Urea Nitrogen(!) 9 mg/dL 6-24 Calcium Ser/Plasma Mass/Vol(!) 9.1 mg/dL 8.6-10.2 Creatinine Serum Mass/Vol(!) 0.7 mg/dL 0.5-1.4 Glucose Serum(!) 112 mg/dL High 70-105 Uric Acid Ser/Plas Mass/Vol(!) 2.1 mg/dL Low 2.6-7.2 BUN/Creatinine Ratio(!) 12.9 RATIO 8.0-36 Albumin Serum/Plasma(!) 4.5 g/dL 3.5-5.2 Alkaline Phosphatase(!) 92 U/L 39-117 Bilirubin Total Mass/Vol 0.3 mg/dL 0.2-1.3 Ast - Sgot 17 U/L 5-34 Alt - SGPT 12 U/L 10-40 Protein Total 7.3 g/dL 6.2-8.1 Laboratory test 05/04/2015 [facility] Amylase(!) 53 U/L 25-114 finding [address] [place] [address] [phone] Laboratory test 04/01/2015 [facility] Vitamin B12 481 N 180-914 20 finding pg/mL CBC W/Auto 04/01/2015 [facility] White Blood 10.5 4.8- 10.8 Differential(!) 2435 [facility] Count Ser Auto 3/[place] [address] MUI [phone] RBC Red Blood Count 4.41 X106/UL 4.20-6.20 Hemoglobin Blood 14.4 g/dL 12.0-18.0 Hematocrit 43.6 % 35-52 MCV (Corpuscular Volume) 98.8 FL High 79-97 MCH (Corpuscular Hemoglobin) 32.6 pg High 27-31 MCHC (Corpuscular Hemog Conc) 33.0 g/dL 32.0-36.0 RDW 14.7 % 10.5-15.0 Platelet Count Blood Auto CNT 282 X103/UL 150-450 MPV 5.8 FL Low 7.4-10.4 Lymph% 26.1 % 20.0-45.0 Hanson% 2.2 % 1.0-9.0 Neutrophil % 71.7 % 38.0-83.0 Absolute Lymphocytes 2.7 X103/UL 1.0-4.8 Absolute Monocytes 0.2 X103/UL 0.0-0.8 Absolute Neutrophils 7.5 X103/UL 1.5-7.7 Liver 04/01/2015 [facility] Albumin 4.2 g/dL 3.5-5.2 Function 2435 [facility] Serum/Plasma(!) Panel(!) [place] [address] [phone] Alkaline Phosphatase(!) 92 U/L 39-117 Bilirubin Direct Mass/Vol(!) 0.1 mg/dL 0.0-0.6 Bilirubin Total Mass/Vol 0.3 mg/dL 0.2-1.3 Ast - Sgot 17 U/L 5-34 Alt - SGPT 14 U/L 10-40 Total Protein 7.2 g/dL 6.2-8.1 CBC W/Auto 01/18/2015 [facility] White 7.6 3/UL 4.8- 10.8 Differential(!) [address] [facility] [place] [address] Count Ser [phone] Auto CNT RBC Red Blood Count 4.19 X106/UL Low 4.20-6.20 Hemoglobin Blood 13.6 g/dL 12.0-18.0 Hematocrit 41.1 % 35-52 MCV (Corpuscular Volume) 98.1 FL High 79-97 MCH (Corpuscular Hemoglobin) 32.4 pg High 27-31 MCHC (Corpuscular Hemog Conc) 33.1 g/dL 32.0-36.0 RDW 13.6 % 10.5-15.0 Platelet Count Blood Auto CNT 268 X103/UL 150-450 MPV 5.8 FL Low 7.4-10.4 Lymph% 33.9 % 20.0-45.0 Hanson% 6.5 % 1.0-9.0 Neutrophil % 59.6 % 38.0-83.0 Absolute Lymphocytes 2.6 X103/UL 1.0-4.8 Absolute Monocytes 0.5 X103/UL 0.0-0.8 Absolute Neutrophils 4.5 X103/UL 1.5-7.7 CMP(!) 01/18/2015 [facility] Sodium(!) 143 mEq/L 134- 149 [address] [place] [address] [phone] Potassium(!) 3.5 mEq/L Low 3.6-5.5 Chloride Serum/Plasma(!) 103 mEq/L 94-112 Carbon Dioxide Ser/Plasm(!) 25 mEq/L 21-33 BUN - Urea Nitrogen(!) 7 mg/dL 6-24 Calcium Ser/Plasma Mass/Vol(!) 8.5 mg/dL Low 8.6-10.2 Creatinine Serum Mass/Vol(!) 0.6 mg/dL 0.5-1.4 Glucose Serum(!) 111 mg/dL High 70-105 Uric Acid Ser/Plas Mass/Vol(!) 3.1 mg/dL 2.6-7.2 BUN/Creatinine Ratio(!) 11.7 RATIO 8.0-36 Albumin Serum/Plasma(!) 4.1 g/dL 3.5-5.2 Alkaline Phosphatase(!) 89 U/L 39-117 Bilirubin Total Mass/Vol 0.3 mg/dL 0.2-1.3 Ast - Sgot 6 U/L 5-34 Alt - SGPT 12 U/L 10-40 Protein Total 6.6 g/dL 6.2-8.1 Laboratory test 01/18/2015 [facility] Inr(!) 1.0 finding [address] [place] [address] [phone] Laboratory test 11/27/2014 [facility] Stool SEE RESULT 21, 22 finding Culture BELOW CMP(!) 11/26/2014 [facility] Sodium(!) 137 mEq/L 134-[address] [id number] [phone] Potassium(!) 3.7 mEq/L 3.6-5.5 Chloride Serum/Plasma(!) 105 mEq/L 94-112 Carbon Dioxide Ser/Plasm(!) 22 mEq/L 21-33 BUN - Urea Nitrogen(!) 9 mg/dL 6-24 Calcium Ser/Plasma Mass/Vol(!) 9.3 mg/dL 8.6-10.2 Creatinine Serum Mass/Vol(!) 0.7 mg/dL 0.5-1.4 Glucose Serum(!) 101 mg/dL 70-105 Uric Acid Ser/Plas Mass/Vol(!) 3.6 mg/dL 2.6-7.2 BUN/Creatinine Ratio(!) 12.9 RATIO 8.0-36 Albumin Serum/Plasma(!) 4.4 g/dL 3.5-5.2 Alkaline Phosphatase(!) 97 U/L 39-117 Bilirubin Total Mass/Vol 0.4 mg/dL 0.2-1.3 Ast - Sgot 15 U/L 5-34 Alt - SGPT 14 U/L 10-40 Protein Total 7.0 g/dL 6.2-8.1 CBC W/Auto 11/19/2014 [facility] White 8.7 3/UL 4.8- 10.8 Differential(!) [address] [facility] [place] [address] Count Ser [phone] Auto CNT RBC Red Blood Count 4.33 X106/UL 4.20-6.20 Hemoglobin Blood 13.7 g/dL 12.0-18.0 Hematocrit 41.7 % 35-52 MCV (Corpuscular Volume) 96.3 FL 79-97 MCH (Corpuscular Hemoglobin) 31.7 pg High 27-31 MCHC (Corpuscular Hemog Conc) 33.0 g/dL 32.0-36.0 RDW 13.6 % 10.5-15.0 Platelet Count Blood Auto CNT 267 X103/UL 150-450 MPV 5.6 FL Low 7.4-10.4 Lymph% 30.8 % 20.0-45.0 Hanson% 5.5 % 1.0-9.0 Neutrophil % 63.7 % 38.0-83.0 Absolute Lymphocytes 2.7 X103/UL 1.0-4.8 Absolute Monocytes 0.5 X103/UL 0.0-0.8 Absolute Neutrophils 5.5 X103/UL 1.5-7.7 Liver 11/19/2014 [facility] Albumin 3.9 g/dL 3.5-5.2 Function 24[address] [facility] Serum/Plasma(!) Panel(!) [place] [address] [phone] Alkaline Phosphatase(!) 95 U/L 39-117 Bilirubin Direct Mass/Vol(!) 0.3 mg/dL 0.0-0.6 Bilirubin Total Mass/Vol 0.0 mg/dL Low 0.2-1.3 Ast - Sgot 17 U/L 5-34 Alt - SGPT 9 U/L Low 10-40 Total Protein 6.4 g/dL 6.2-8.1 Laboratory test 11/19/2014 [facility] Vitamin B12 411 pg/mL N 180-914 23 finding Laboratory test 06/14/2014 [facility] C Reactive Protein 14.62 mg/L High < 5.00 24 finding CBC Auto Diff 06/14/2014 [facility] White Blood Count 10.0 10^3/uL N 4.8-10.8 Red Blood Count 4.65 10^6/uL N 4.0-5.4 Hemoglobin 15.2 g/dL N 12.0-16.0 Hematocrit 44 % N 35-47 Mean Corpuscular Volume 95 fL N 80-97 Mean Corpuscular Hemoglobin 33 pg High 27-31 Mean Corpuscular HGB Conc 35 g/dL N 31-36 Red Cell Distribution Width 13 % N 10.5-15 Platelet Count 261 10^3/uL N 150-450 Mean Platelet Volume 8 um3 N 7.4-10.4 Abs Neutrophils 6.9 10^3/uL N 1.5-7.7 Abs Lymphocytes 2.1 10^3/uL N 1.0-4.8 Abs Monocytes 0.9 10^3/uL High 0-0.8 Abs Eosinophils 0 10^3/uL N 0-0.6 Abs Basophils 0.1 10^3/uL N 0-0.2 Abs Nucleated RBC 0 10^3/uL N Granulocyte % 68.7 % N 38-83 Lymphocyte % 21.3 % Low 25-47 Monocyte % 8.9 % N 1-9 Eosinophil % 0.3 % N 0-6 Basophil % 0.8 % N 0-2 Nucleated Red Blood Cells % 0 N Laboratory test 06/14/2014 [facility] Erythrocyte Sed 47 mm/Hr High 0-30 finding Rate CMP(!) 02/15/2014 [facility] Sodium(!) 139 mEq/L 134- 149 [address] [place] [address] [phone] Potassium(!) 3.7 mEq/L 3.6-5.5 Chloride Serum/Plasma(!) 102 mEq/L 94-112 Carbon Dioxide Ser/Plasm(!) 26 mEq/L 21-33 BUN - Urea Nitrogen(!) 7 mg/dL 6-24 Calcium Ser/Plasma Mass/Vol(!) 9.3 mg/dL 8.6-10.2 Creatinine Serum Mass/Vol(!) 0.7 mg/dL 0.5-1.4 Glucose Serum(!) 81 mg/dL 70-105 Uric Acid Ser/Plas Mass/Vol(!) 3.2 mg/dL 2.6-7.2 BUN/Creatinine Ratio(!) 10 RATIO 8.0-36 Albumin Serum/Plasma(!) 4.3 g/dL 3.5-5.2 Alkaline Phosphatase(!) 102 U/L 39-117 Bilirubin Total Mass/Vol 0.2 mg/dL 0.2-1.3 Ast - Sgot 6 U/L 5-34 Alt - SGPT 14 U/L 10-40 Protein Total 6.9 g/dL 6.2-8.1 Ua Dipstick 02/15/2014 [facility] Ua Color YELLOW Macroscopic(!) [address] [place] [address] [phone] Ua Appearance CLEAR Ua Specific [place] 1.010 GM/ML 1.00-1.035 Ua PH Test 7.0 units 5.0-8.0 Ua Leukocytes NEG Ua Nitrite NEG Ua Protein NEG Ua Glucose QL NEG Ua Ketones NEG Ua Urobilinogen NEG Ua Bilirubin NEG Ua Blood Qual NEG Laboratory test 12/04/2013 [facility] Vitamin B12 402 pg/mL N 180-914 25 finding CBC W/Auto 12/04/2013 [facility] White Blood 7.9 3/UL 4.8-10.8 Differential(!) [address] [facility] [place] [address] Auto CNT [phone] RBC Red Blood Count 4.66 X106/UL 4.20-6.20 Hemoglobin Blood 14.1 g/dL 12.0-18.0 Hematocrit 43.6 % 35-52 MCV (Corpuscular Volume) 93.5 FL 79-97 MCH (Corpuscular Hemoglobin) 30.2 pg 27-31 MCHC (Corpuscular Hemog Conc) 32.3 g/dL 32.0-36.0 RDW 14.2 % 10.5-15.0 Platelet Count Blood Auto CNT 244 X103/UL 150-450 MPV 5.9 FL Low 7.4-10.4 Lymph% 31.2 % 20.0-45.0 Hanson% 5.3 % 1.0-9.0 Neutrophil % 63.5 % 38.0-83.0 Absolute Lymphocytes 2.5 X103/UL 1.0-4.8 Absolute Monocytes 0.4 X103/UL 0.0-0.8 Absolute Neutrophils 5.0 X103/UL 1.5-7.7 Liver 12/04/2013 [facility] Albumin 4.3 g/dL 3.5-5.2 Function [address] [facility] Serum/Plasma(!) Panel(!) [place] [address] [phone] Alkaline Phosphatase(!) 96 U/L 39-117 Bilirubin Direct Mass/Vol(!) 0.1 mg/dL 0.0-0.6 Bilirubin Total Mass/Vol 0.4 mg/dL 0.2-1.3 Ast - Sgot 18 U/L 5-34 Alt - SGPT 14 U/L 10-40 Total Protein 6.9 g/dL 6.2-8.1 Laboratory test 06/23/2013 [facility] C Reactive < 0.5 Less than finding Protein mg/dL 0.5 CBC W/Auto 06/23/2013 [facility] White Blood 9.5 3/UL 4.8-10.8 Differential(!) [address] [facility] [place] [address] Auto CNT [phone] RBC Red Blood Count 4.89 X106/UL 4.20-6.20 Hemoglobin Blood 14.4 g/dL 12.0-18.0 Hematocrit 44.4 % 35-52 MCV (Corpuscular Volume) 90.7 FL 79-97 MCH (Corpuscular Hemoglobin) 29.4 pg 27-31 MCHC (Corpuscular Hemog Conc) 32.5 g/dL 32.0-36.0 RDW 15.4 % High 10.5-15.0 Platelet Count Blood Auto CNT 222 X103/UL 150-450 MPV 6.7 FL Low 7.4-10.4 Lymph% 30.6 % 20.0-45.0 Hanson% 5.0 % 1.0-9.0 Neutrophil % 64.4 % 38.0-83.0 Absolute Lymphocytes 2.9 X103/UL 1.0-4.8 Absolute Monocytes 0.5 X103/UL 0.0-0.8 Absolute Neutrophils 6.1 X103/UL 1.5-7.7 Laboratory test 06/02/2013 [facility] Vitamin B12 320 pg/mL 180-914 finding CMP(!) 06/02/2013 [facility] Sodium(!) 142 mEq/L 134- 149 [address] [place] [address] [phone] Potassium(!) 3.8 mEq/L 3.6-5.5 Chloride Serum/Plasma(!) 104 mEq/L 94-112 Carbon Dioxide Ser/Plasm(!) 25 mEq/L 21-33 BUN - Urea Nitrogen(!) 6 mg/dL 6-24 Calcium Ser/Plasma Mass/Vol(!) 9.6 mg/dL 8.6-10.2 Creatinine Serum Mass/Vol(!) 0.7 mg/dL 0.5-1.4 Glucose Serum(!) 108 mg/dL High 70-105 Uric Acid Ser/Plas Mass/Vol(!) 3.2 mg/dL 2.6-7.2 BUN/Creatinine Ratio(!) 8.6 RATIO 8.0-36 Albumin Serum/Plasma(!) 4.2 g/dL 3.5-5.2 Alkaline Phosphatase(!) 91 U/L 39-117 Bilirubin Total Mass/Vol 0.3 mg/dL 0.2-1.3 Ast - Sgot 14 U/L 5-34 Alt - SGPT 20 U/L 10-40 Protein Total 6.6 g/dL 6.2-8.1 CBC W/Auto 06/02/2013 [facility] White 11.6 High 4.8- 10.8 Differential(!) [address] [facility] Blood [address] [address] Count Ser [phone] Auto CNT RBC Red Blood Count 4.71 X106/UL 4.20-6.20 Hemoglobin Blood 13.8 g/dL 12.0-18.0 Hematocrit 42.2 % 35-52 MCV (Corpuscular Volume) 89.7 FL 79-97 MCH (Corpuscular Hemoglobin) 29.3 pg 27-31 MCHC (Corpuscular Hemog Conc) 32.7 g/dL 32.0-36.0 RDW 16.7 % High 10.5-15.0 Platelet Count Blood Auto CNT 223 X103/UL 150-450 MPV 6.2 FL Low 7.4-10.4 Lymph% 15.8 % Low 20.0-45.0 Hanson% 7.3 % 1.0-9.0 Neutrophil % 76.9 % 38.0-83.0 Absolute Lymphocytes 1.8 X103/UL 1.0-4.8 Absolute Monocytes 0.8 X103/UL 0.0-0.8 Absolute Neutrophils 8.9 X103/UL High 1.5-7.7 Electrolytes 04/01/2013 [facility] Sodium(!) 134 mEq/L 134-149 Panel(!) [address] [place] [address] [phone] Potassium(!) 3.5 mEq/L Low 3.6-5.5 Chloride Serum/Plasma(!) 102 mEq/L 94-112 Carbon Dioxide Ser/Plasm(!) 29 mEq/L 21-33 Laboratory test 03/16/2013 [facility] Reactive 0.5 mg/dL Less finding Protein than 0.5 Laboratory test 03/16/2013 [facility] Esr Sedimentation 08 MM 0-20 finding [address] [facility] Rate(!) [place] [address] [phone] CMP(!) 03/16/2013 [facility] Sodium(!) 139 mEq/L 134- 149 [address] [place] [address] [phone] Potassium(!) 3.0 mEq/L Low 3.6-5.5 Chloride Serum/Plasma(!) 103 mEq/L 94-112 Carbon Dioxide Ser/Plasm(!) 28 mEq/L 21-33 BUN - Urea Nitrogen(!) 10 mg/dL 6-24 Calcium Ser/Plasma Mass/Vol(!) 8.7 mg/dL 8.6-10.2 Creatinine Serum Mass/Vol(!) 0.7 mg/dL 0.5-1.4 Glucose Serum(!) 96 mg/dL 70-105 Uric Acid Ser/Plas Mass/Vol(!) 3.2 mg/dL 2.6-7.2 BUN/Creatinine Ratio(!) 14.3 RATIO 8.0-36 Albumin Serum/Plasma(!) 3.9 g/dL 3.5-5.2 Alkaline Phosphatase(!) 76 U/L 39-117 Bilirubin Total Mass/Vol 0.3 mg/dL 0.2-1.3 Ast - Sgot 18 U/L 5-34 Alt - SGPT 30 U/L 10-40 Protein Total 6.4 g/dL 6.2-8.1 CBC W/Auto 03/16/2013 [facility] White 14.3 High 4.8- 10.8 Differential(!) [address] [facility] Blood [address] [address] Count Ser [phone] Auto CNT RBC Red Blood Count 4.46 X106/UL 4.20-6.20 Hemoglobin Blood 12.8 g/dL 12.0-18.0 Hematocrit 39.9 % 35-52 MCV (Corpuscular Volume) 89.4 FL 79-97 MCH (Corpuscular Hemoglobin) 28.7 pg 27-31 MCHC (Corpuscular Hemog Conc) 32.1 g/dL 32.0-36.0 RDW 17.0 % High 10.5-15.0 Platelet Count Blood Auto CNT 292 X103/UL 150-450 MPV 6.3 FL Low 7.4-10.4 Lymph% 17.4 % Low 20.0-45.0 Hanson% 6.6 % 1.0-9.0 Neutrophil % 76.0 % 38.0-83.0 Absolute Lymphocytes 2.5 X103/UL 1.0-4.8 Absolute Monocytes 0.9 X103/UL High 0.0-0.8 Absolute Neutrophils 10.9 X103/UL High 1.5-7.7 Surgical Pathology 02/25/2013 [facility] [place] DATE: 02/27/ <SEE NOTE> Laboratory test finding 02/24/2013 [facility] [place] Prealbumin 31.1 mg/dL 18-38 Comp Metabolic Panel 02/24/2013 [facility] [place] Sodium 135 mmol/L 133-145 Potassium 4.4 mmol/L 3.5-5.0 Chloride 99 mmol/L Low 101-111 Co2 Carbon Dioxide 24.0 mmol/L 22-32 Anion Gap 12.0 mmol/L High 2-11 Glucose 122 mg/dL High 70-100 Blood Urea Nitrogen 14 mg/dL 6-24 Creatinine 1.00 mg/dL 0.50-1.40 BUN/Creatinine Ratio 14.0 8-20 Calcium 10.0 mg/dL High 8.1-9.9 Total Protein 7.4 g/dL 6.2-8.1 Albumin 3.8 g/dL 3.2-5.2 Globulin 3.6 g/dL 2-4 Albumin/Globulin Ratio 1.1 1-3 Total Bilirubin 0.6 mg/dL 0.4-1.5 Alkaline Phosphatase 119 U/L High 30-110 Alt 23 U/L 14-54 Ast 24 U/L 12-42 Egfr Non- 56.6 >60 Egfr 72.7 >60 26 Laboratory test 02/24/2013 [facility] C Reactive 1.1 mg/dL High Less finding Protein than 0.5 CBC W/Auto 02/24/2013 [facility] White Blood 12.5 3/UL High 4.8-10.8 Differential(!) [address] [address] Auto CNT [phone] RBC Red Blood Count 5.22 X106/UL 4.20-6.20 Hemoglobin Blood 14.8 g/dL 12.0-18.0 Hematocrit 46.8 % 35-52 MCV (Corpuscular Volume) 89.5 FL 79-97 MCH (Corpuscular Hemoglobin) 28.4 pg 27-31 MCHC (Corpuscular Hemog Conc) 31.8 g/dL Low 32.0-36.0 RDW 15.9 % High 10.5-15.0 Platelet Count Blood Auto CNT 493 X103/UL High 150-450 MPV 6.1 FL Low 7.4-10.4 Lymph% 18.3 % Low 20.0-45.0 Hanson% 4.6 % 1.0-9.0 Neutrophil % 77.1 % 38.0-83.0 Absolute Lymphocytes 2.3 X103/UL 1.0-4.8 Absolute Monocytes 0.6 X103/UL 0.0-0.8 Absolute Neutrophils 9.6 X103/UL High 1.5-7.7 Fungal Cult 02/20/2013 [facility] Fungal Cult - (SEE NOTE) 27 Other Sources Other Sources Fungal Cult 02/20/2013 [facility] Fungal Cult - (SEE NOTE) 28 Other Sources Other Sources Fungal Cult 02/20/2013 [facility] Fungal Cult - (SEE NOTE) 29 Other Sources Other Sources Clotest 02/20/2013 [facility] Clotest (SEE NOTE) Laboratory test 01/20/2013 [facility] Rheumatoid <15 IU/mL <15 30 finding Factor Laboratory test 01/20/2013 [facility] TSH Thyroid 0.36 Low 0.38- finding [address] Stim Hormone(!) 4.31 [place] [address] [phone] T4 Free Thyroxine Mass/Vol(!) 1.37 PG.ML 0.70-1.80 Laboratory test 01/13/2013 [facility] Lyme Disease Negative Negative 31 finding Serology CBC W/Auto 01/13/2013 [facility] White Blood 11.0 3/UL High 4.8-10.8 Differential(!) [address] [place] [address] Auto CNT [phone] RBC Red Blood Count 4.07 X106/UL Low 4.20-6.20 Hemoglobin Blood 12.1 g/dL 12.0-18.0 Hematocrit 37.2 % 35-52 MCV (Corpuscular Volume) 91.4 FL 79-97 MCH (Corpuscular Hemoglobin) 29.8 pg 27-31 MCHC (Corpuscular Hemog Conc) 32.6 g/dL 32.0-36.0 RDW 14.8 % 10.5-15.0 Platelet Count Blood Auto CNT 431 X103/UL 150-450 MPV 6.2 FL Low 7.4-10.4 Lymph% 18.5 % Low 20.0-45.0 Hanson% 5.6 % 1.0-9.0 Neutrophil % 75.9 % 38.0-83.0 Absolute Lymphocytes 2.0 X103/UL 1.0-4.8 Absolute Monocytes 0.6 X103/UL 0.0-0.8 Absolute Neutrophils 8.3 X103/UL High 1.5-7.7 CMP(!) 01/13/2013 [facility] Sodium(!) 135 mEq/L 134- 149 [address] [place] [address] [phone] Potassium(!) 3.5 mEq/L Low 3.6-5.5 Chloride Serum/Plasma(!) 97 mEq/L 94-112 Carbon Dioxide Ser/Plasm(!) 24 mEq/L 21-33 BUN - Urea Nitrogen(!) 10 mg/dL 6-24 Calcium Ser/Plasma Mass/Vol(!) 8.7 mg/dL 8.6-10.2 Creatinine Serum Mass/Vol(!) 0.7 mg/dL 0.5-1.4 Glucose Blood(!) 120 mg/dL High 70-105 Uric Acid Ser/Plas Mass/Vol(!) 3.0 mg/dL 2.6-7.2 BUN/Creatinine Ratio(!) 14.3 RATIO 8.0-36 Albumin Serum/Plasma(!) 4.0 g/dL 3.5-5.2 Alkaline Phosphatase(!) 195 U/L High 39-117 Bilirubin Total Mass/Vol 0.3 mg/dL 0.2-1.3 Ast - Sgot 11 U/L 5-34 Alt - SGPT 11 U/L 10-40 Total Protein 6.6 g/dL 6.2-8.1 CBC W/Auto 12/01/2012 [facility] White 9.1 3/UL 4.8- 10.8 Differential(!) [address] [facility] [place] [address] Count Ser [phone] Auto CNT RBC Red Blood Count 4.07 X106/UL Low 4.20-6.20 Hemoglobin Blood 12.1 g/dL 12.0-18.0 Hematocrit 38.0 % 35-52 MCV (Corpuscular Volume) 93.3 FL 79-97 MCH (Corpuscular Hemoglobin) 29.7 pg 27-31 MCHC (Corpuscular Hemog Conc) 31.8 g/dL Low 32.0-36.0 RDW 14.3 % 10.5-15.0 Platelet Count Blood Auto CNT 390 X103/UL 150-450 MPV 6.2 FL Low 7.4-10.4 Lymph% 20.1 % 20.0-45.0 Hanson% 6.7 % 1.0-9.0 Neutrophil % 73.2 % 38.0-83.0 Absolute Lymphocytes 1.8 X103/UL 1.0-4.8 Absolute Monocytes 0.6 X103/UL 0.0-0.8 Absolute Neutrophils 6.7 X103/UL 1.5-7.7 Liver 12/01/2012 [facility] Albumin 4.6 g/dL 3.5-5.[address] [place] [address] Serum/Plasma(!) Panel(!) [place] [address] [phone] Alkaline Phosphatase(!) 205 U/L High 39-117 Bilirubin Direct Mass/Vol(!) 0.1 mg/dL 0.0-0.6 Bilirubin Total Mass/Vol 0.4 mg/dL 0.2-1.3 Ast - Sgot 26 U/L 5-34 Alt - SGPT 14 U/L 10-40 Total Protein 7.7 g/dL 6.2-8.1 Globulin 3.1 g/dL 2.0-4.8 Alb/Glob(!) 1.5 RATIO 0.6-2.2 Laboratory test 12/01/2012 [facility] BUN - Urea 13 mg/dL 6-[address] [place] [address] Nitrogen(!) [place] [address] [phone] Creatinine Serum Mass/Vol(!) 0.8 mg/dL 0.5-1.4 Liver 10/01/2012 [facility] Albumin 4.7 g/dL 3.5-5.[address] [place] [address] Serum/Plasma(!) Panel(!) [place] [address] [phone] Alkaline Phosphatase(!) 211 U/L High 39-117 Bilirubin Direct Mass/Vol(!) 0.1 mg/dL 0.0-0.6 Bilirubin Total Mass/Vol 0.3 mg/dL 0.2-1.3 Ast - Sgot 24 U/L 5-34 Alt - SGPT 12 U/L 10-40 Total Protein 7.9 g/dL 6.2-8.1 Globulin 3.2 g/dL 2.0-4.8 Alb/Glob(!) 1.5 RATIO 0.6-2.2 Anca Panel For Vasculitis 10/01/2012 [facility] Myeloperoxidase AB <0.2 U 32 Proteinase 3 AB <0.2 U 33 Laboratory test 10/01/2012 [facility] Hepatitis A IgM Negative Negative 34 finding Antibody Laboratory test 10/01/2012 [facility] Hepatitis C Nonreactive Nonreactive finding Antibody Hepatitis Acute PNL 10/01/2012 [facility] Hepatitis B Core Nonreactive Nonreactive ([facility]) IgM Hepatitis B Surface Antigen Nonreactive Nonreactive Laboratory test finding 09/12/2012 [facility] Vitamin B12 502 pg/mL 180-914 35 Alkaline Phosphatase 211 U/L High 30-110 36 Liver 09/09/2012 [facility] Albumin 5.1 g/dL 3.5-5.2 Function [address] [facility] Serum/Plasma(!) Panel(!) [place] [address] [phone] Alkaline Phosphatase(!) 237 U/L High 39-117 Bilirubin Direct Mass/Vol(!) 0.2 mg/dL 0.0-0.6 Bilirubin Total Mass/Vol 0.3 mg/dL 0.2-1.3 Ast - Sgot 32 U/L 5-34 Alt - SGPT 18 U/L 10-40 Total Protein 8.2 g/dL High 6.2-8.1 Globulin 3.1 g/dL 2.0-4.8 Alb/Glob(!) 1.6 RATIO 0.6-2.2 Ua Dipstick 09/09/2012 [facility] Ua Color YELLOW Macroscopic(!) [address] [place] [address] [phone] Ua Appearance CLEAR Ua Specific [place] 1.020 GM/ML 1.00-1.035 Ua PH Test 6.0 units 5.0-7.5 Ua Leukocytes NEG Ua Nitrite NEG Ua Protein NEG Ua Glucose QL NEG Ua Ketones NEG Ua Urobilinogen NEG Ua Bilirubin NEG Ua Blood Qual NEG Vitamin D, 25 Hydroxy 09/09/2012 [facility] 25-Hydroxy Vitamin D2 <4.0 ng/mL 25-Hydroxy Vitamin D3 5.0 ng/mL 25-Hydroxy Vitamin D Total <6.0 ng/mL Abnormal 37 Alkaline Phos 09/09/2012 [facility] Alkaline Phosphatase 241 U/L Abnormal 46 - 118 Isoenzymes Alp Liver 1% 66.8 % 27.8-76.3 Alp Liver 1 161.0 IU/L Abnormal 16.2-70.2 Alp Liver 2% 6.1 % 0.0-8.0 Alp Liver 2 14.7 IU/L Abnormal 0.0-5.8 Alp Bone % 25.2 % 19.1-67.7 Alp Bone 60.7 IU/L Abnormal 12.1-42.7 Alp Intestine % 1.9 % 0.0-20.6 Alp Intestine 4.6 IU/L 0.0-11.0 Alp Placental NotPresent 38 CBC Auto Diff 09/02/2012 [facility] White Blood Count 8.9 10^3/uL 4.8-10.8 Red Blood Count 4.56 10^6/uL 4.0-5.4 Hemoglobin 13.8 g/dL 12.0-16.0 Hematocrit 42 % 35-47 Mean Corpuscular Volume 92 fL 80-97 Mean Corpuscular Hemoglobin 30 pg 27-31 Mean Corpuscular HGB Conc 33 g/dL 31-36 Red Cell Distribution Width 18 % High 10.5-15 Platelet Count 325 10^3/uL 150-450 Mean Platelet Volume 8 um3 7.4-10.4 Abs Neutrophils 6.5 10^3/uL 1.5-7.7 Abs Lymphocytes 1.3 10^3/uL 1.0-4.8 Abs Monocytes 1.0 10^3/uL High 0-0.8 Abs Eosinophils 0.1 10^3/uL 0-0.6 Abs Basophils 0 10^3/uL 0-0.2 Abs Nucleated RBC 0.01 10^3/uL Granulocyte % 72.5 % 38-83 Lymphocyte % 15.0 % Low 25-47 Monocyte % 11.2 % High 1-9 Eosinophil % 0.9 % 0-6 Basophil % 0.4 % 0-2 Nucleated Red Blood Cells % 0.1 Laboratory test 09/02/2012 [facility] Cell Morphology Normal Normal finding CMP(!) 09/02/2012 [facility] Sodium(!) 141 mEq/L 134- 149 [address] [place] [address] [phone] Potassium(!) 4.0 mEq/L 3.6-5.5 Chloride Serum/Plasma(!) 100 mEq/L 94-112 Carbon Dioxide Ser/Plasm(!) 26 mEq/L 21-33 BUN - Urea Nitrogen(!) 11 mg/dL 6-24 Calcium Ser/Plasma Mass/Vol(!) 9.1 mg/dL 8.6-10.2 Creatinine Serum Mass/Vol(!) 0.9 mg/dL 0.5-1.4 Glucose Blood(!) 105 mg/dL 70-105 Uric Acid Ser/Plas Mass/Vol(!) 4.2 mg/dL 2.6-7.2 BUN/Creatinine Ratio(!) 12.2 RATIO 8.0-36 Albumin Serum/Plasma(!) 5.1 g/dL 3.5-5.2 Alkaline Phosphatase(!) 169 U/L High 39-117 Bilirubin Total Mass/Vol 0.3 mg/dL 0.2-1.3 Ast - Sgot 34 U/L 5-34 Alt - SGPT 25 U/L 10-40 Total Protein 7.7 g/dL 6.2-8.1 Lipid Panel(!) 09/02/2012 [facility] Cholesterol 183 mg/ dL [phone] [facility] Total Mass/Vol [place], [place] [id number] [phone] High Density Lipoprotein 32 Triglycerides Ser/Plas Mass/VL 146 mg/dL 30-150 VLDL(!) 29 mg/dL 0-50 LDL Cholesterol Mass/Vol(!) 122 mg/dL 0-130 Ua Dipstick 09/02/2012 [facility] Ua Color ARVIND Macroscopic(!) [address] [place] [address] [phone] Ua Appearance HAZY Ua Specific [place] 1.020 GM/ML 1.00-1.035 Ua PH Test 5.0 units 5.0-7.5 Ua Leukocytes 3+ High Ua Nitrite POS High Ua Protein 3+ High Ua Glucose QL NEG Ua Ketones NEG Ua Urobilinogen NEG Ua Bilirubin NEG Ua Blood Qual 3+ High Ua Microscopic 09/02/2012 [facility] Ua WBC TNTC High [address] [place], [place] [id number] [phone] Ua RBC TNTC High Ua Epithelial Cells MOD High Ua Crystals NONE Ua Bacteria 3+ High Ua Mucous MOD Ua Amorphous 1+ Ua Yeast NONE Ua Casts NONE Urine Culture & 09/02/2012 [facility] Z#Other <pending> Sensitivity [address] [facility] Observations [place], [place] [id number] [phone] Urine Culture And 09/02/2012 [facility] Urine Culture (SEE NOTE) 39 Sensitivities CBC W/Auto 08/05/2012 [facility] White Blood 11.0 3/UL High 4.8 Differential(!) [address] [facility] Count Ser Auto -10 [place] [address] CNT .8 [phone] Lymph% 21.4 % 20.0-45.0 Hanson% 5.1 % 1.0-9.0 Granulocyte Percentage 73.5 % 38.0-83.0 Lymph# 2.4 1.0-4.8 Hanson# 0.6 0.0-0.8 Absolute Granulocyte 8.1 High 1.5-7.7 RBC Red Blood Count 4.28 X106/UL 4.20-6.20 Hemoglobin Blood 12.7 g/dL 12.0-18.0 Hematocrit 40.2 % 35-52 MCV (Corpuscular Volume) 94.0 FL 79-97 MCH (Corpuscular Hemoglobin) 29.7 pg 27-31 MCHC (Corpuscular Hemog Conc) 31.6 g/dL Low 32.0-36.0 RDW 18.7 % High 10.5-15.0 Platelet Count Blood Auto CNT 294 X103/UL 150-450 MPV 6.0 FL Low 7.4-10.4 Laboratory test 08/05/2012 [facility] Esr Sedimentation 20 MM 0-20 finding [address] [facility] Rate(!) [place] [address] [phone] BMP W/O Egfr(!) 08/05/2012 [facility] Sodium(!) 138 134 -149 5 [facility] mEq/[place] [address] [phone] Potassium(!) 4.1 mEq/L 3.6-5.5 Chloride Serum/Plasma(!) 100 mEq/L 94-112 Carbon Dioxide Ser/Plasm(!) 26 mEq/L 21-33 BUN - Urea Nitrogen(!) 13 mg/dL 6-24 Calcium Ser/Plasma Mass/Vol(!) 8.5 mg/dL Low 8.6-10.2 Creatinine Serum Mass/Vol(!) 0.8 mg/dL 0.5-1.4 Glucose Blood(!) 117 mg/dL High 70-105 Laboratory test 07/29/2012 [facility] Magnesium 2.4 mg/dL 1.7-2.6 finding CBC W/Auto 07/29/2012 [facility] White Blood 9.2 3/UL 4.8-10.8 Differential(!) [address] [place] [address] CNT [phone] Lymph% 30.1 % 20.0-45.0 Hanson% 5.8 % 1.0-9.0 Granulocyte Percentage 64.1 % 38.0-83.0 Lymph# 2.8 1.0-4.8 Hanson# 0.5 0.0-0.8 Absolute Granulocyte 5.9 1.5-7.7 RBC Red Blood Count 4.41 X106/UL 4.20-6.20 Hemoglobin Blood 12.8 g/dL 12.0-18.0 Hematocrit 41.0 % 35-52 MCV (Corpuscular Volume) 93.1 FL 79-97 MCH (Corpuscular Hemoglobin) 29.0 pg 27-31 MCHC (Corpuscular Hemog Conc) 31.2 g/dL Low 32.0-36.0 RDW 18.9 % High 10.5-15.0 Platelet Count Blood Auto CNT 307 X103/UL 150-450 MPV 6.1 FL Low 7.4-10.4 BMP W/O Egfr(!) 07/29/2012 [facility] Sodium(!) 141 mEq/L [phone] [place] [address] [phone] Potassium(!) 3.3 mEq/L Low 3.6-5.5 Chloride Serum/Plasma(!) 103 mEq/L 94-112 Carbon Dioxide Ser/Plasm(!) 28 mEq/L 21-33 BUN - Urea Nitrogen(!) 18 mg/dL 6-24 Calcium Ser/Plasma Mass/Vol(!) 8.6 mg/dL 8.6-10.2 Creatinine Serum Mass/Vol(!) 0.7 mg/dL 0.5-1.4 Glucose Blood(!) 100 mg/dL 70-105 Laboratory test 07/29/2012 [facility] Esr Sedimentation 27 MM High 0-20 [address] Rate(!) [place] [address] [phone] Laboratory test 07/02/2012 [facility] C Reactive 1.0 High Less finding Protein mg/dL than 0.5 Laboratory test 07/02/2012 [facility] Esr Sedimentation 105 MM High 0-20 finding [address] Rate(!) [place] [address] [phone] CBC W/Auto 07/02/2012 [facility] White Blood Count 11.0 High 4.8-10.8 Differential(!) [address] [facility] [address] Ser Auto CNT 3/[place] [address] [phone] Lymph% 20.7 % 20.0-45.0 Hanson% 5.5 % 1.0-9.0 Granulocyte Percentage 73.8 % 38.0-83.0 Lymph# 2.3 1.0-4.8 Hanson# 0.6 0.0-0.8 Absolute Granulocyte 8.1 High 1.5-7.7 RBC Red Blood Count 4.30 X106/UL 4.20-6.20 Hemoglobin Blood 12.0 g/dL 12.0-18.0 Hematocrit 37.7 % 35-52 MCV (Corpuscular Volume) 87.7 FL 79-97 MCH (Corpuscular Hemoglobin) 28.0 pg 27-31 MCHC (Corpuscular Hemog Conc) 31.9 g/dL Low 32.0-36.0 RDW 14.8 % 10.5-15.0 Platelet Count Blood Auto CNT 380 X103/UL 150-450 MPV 6.2 FL Low 7.4-10.4 Laboratory test finding 01/11/2012 [facility] Lipase 37 U/L 22-51 C Reactive Protein < 0.5 mg/dL Less Than 0.5 Laboratory test finding 10/09/2011 [facility] Calcium 9.2 mg/dL 8.1-9.9 Magnesium 2.3 mg/dL 1.7-2.6 Selenium 119 ng/mL 70-150 40 Zinc 0.92 g/mL 0.66-1.10 41 Laboratory test 08/17/2011 [facility] C Reactive Protein < 0.5 mg/dL Less Than 0.5 finding 1 [id number] SEE RESULT BELOW Name: SASHA BURNETTE : [address]: Cass Kwan MD Acct: [id number] Unit: [id number] AGE: 63 Location: [facility] Re12/29/18 SEX: F Status: DEP REF SPEC: [id number] NEVAEH: 12/29/[address] [facility] [address]: Cass Lopez MD REQ: [id number] RECD: 12/29/18 STATUS: FABIOLA OTERO DR: Chika Castillo MD _ SOURCE: GAS ANTRUM SPDESC: ORDERED: Clotest COMMENTS: [id number] Procedure Result Reported Site Clotest Final 12/30/18- 717 ML Clotest Negative * ML - Main Lab . END OF REPORT DEPARTMENT OF PATHOLOGY, [address] [place] [address] Donnie Najera M.D. Director [facility] # [id number] SEE RESULT BELOW Name: SASHA BURNETTE : [address]: Cass Kwan MD Acct: [id number] Unit: [id number] AGE: 63 Location: [facility] Re12/29/18 SEX: F Status: DEP REF SPEC: [id number] NEVAEH: 12/29/[address] [facility] [address]: Cass Lopez MD REQ: [id number] RECD: 12/29/18 STATUS: FABIOLA OTERO DR: Chika Castillo MD _ SOURCE: GAS ANTRUM SPDESC: ORDERED: Clotest COMMENTS: [id number] Procedure Result Reported Site Clotest Final 12/30/18717 ML Clotest Negative * ML - Main Lab . END OF REPORT DEPARTMENT OF PATHOLOGY, [address] [place] [address] Donnie Najera M.D. Director [facility] # [id number] SEE RESULT BELOW Name: SASHA BURNETTE : [address]: Cass Kwan MD Acct: [id number] Unit: [id number] AGE: 63 Location: [facility] Re12/29/18 SEX: F Status: DEP REF SPEC: [id number] NEVAEH: 12/29/[address]: Cass Lopez MD REQ: [id number] RECD: 12/29/18120 STATUS: UTE OTERO DR: Chika Castillo MD _ ORDERED: LEVEL 4/5, IMMUNO-FIRST, SPEC STAIN ORG/2 COMMENTS: [id number] FINAL DIAGNOSIS 1. Small bowel, duodenum, biopsy: [...] chronic inflammation (up to 12 lymphocytes/HPF) and nonspecific reactive changes. -- Specific features of reflux or allergic/eosinophilic esophagitis are not seen. -- No active inflammation is identified. Comment: The esophageal findings are not entirely specific but raise the possibility of the less than globally except a diagnosis of lymphocytic esophagitis. Some authors associates CONTINUED ON NEXT PAGE DEPARTMENT OF PATHOLOGY, [address] [place] [address] Donnie Najera M.D. Director [facility] # [id number] RUN DATE: 12/31/18 [facility] LAB LIVE PAGE 2 Patient: SASHA BURNETTE [id number] (Continued) SPECIMEN COMMENTS (Continued) such findings with a manifestation of Crohn's [...] tissue fragment admixed with red- brown blood clot. Entirely submitted, one cassette. 3. The [...] which is submitted entirely in one cassette. CONTINUED ON NEXT PAGE DEPARTMENT OF PATHOLOGY, [address] [place] [address] Donnie Najera M.D. Director [facility] # [id number] RUN DATE: 12/31/18 [facility] LAB LIVE PAGE 3 Patient: SASHA BURNETTE [id number] (Continued) GROSS DESCRIPTION (Continued) 5. The specimen is received in formalin labeled, Biopsy Mid Esophagus, and consists of a 0.8 x 0.5 x 0.1 cm aggregate of translucent rodríguez-pink irregular soft tissue fragments which is submitted entirely in one cassette. Signed by and Reported on: Donnie Najera MD 07/09 1709 END OF REPORT DEPARTMENT OF PATHOLOGY, [address] [place] [address] Donnie Najera M.D. Director [facility] # [id number] SEE RESULT BELOW Name: SASHA BURNETTE : [address]: Cass Kwan MD Acct: [id number] Unit: [id number] AGE: 63 Location: ENDOC Re12/29/18 SEX: F Status: DEP REF SPEC: [id number] NEVAEH: 12/29/180854 [facility] DR: Cass Lopez MD REQ: [id number] RECD: 12/29/18120 STATUS: UTE OTERO DR: Chika Castillo MD _ ORDERED: LEVEL 4/5, IMMUNO-FIRST, SPEC STAIN ORG/2 COMMENTS: [id number] FINAL DIAGNOSIS 1. Small bowel, duodenum, biopsy: [...] chronic inflammation (up to 12 lymphocytes/HPF) and nonspecific reactive changes. -- Specific features of reflux or allergic/eosinophilic esophagitis are not seen. -- No active inflammation is identified. Comment: The esophageal findings are not entirely specific but raise the possibility of the less than globally except a diagnosis of lymphocytic esophagitis. Some authors associates CONTINUED ON NEXT PAGE DEPARTMENT OF PATHOLOGY, [address] [place] [address] Donnie Najera M.D. Director [facility] # [id number] RUN DATE: 12/31/18 [facility] LAB LIVE PAGE 2 Patient: SASHA BURNETTE [id number] (Continued) SPECIMEN COMMENTS (Continued) such findings with a manifestation of Crohn's [...] tissue fragment admixed with red- brown blood clot. Entirely submitted, one cassette. 3. The [...] x 0.6 x 0.1 cm aggregate of rodírguez-pink irregular soft tissue fragments which is submitted entirely in one cassette. CONTINUED ON NEXT PAGE DEPARTMENT OF PATHOLOGY, [address] [place] [address] Donnie Najera M.D. Director [facility] # [id number] RUN DATE: 12/31/18 [facility] LAB LIVE PAGE 3 Patient: VASILESASHA [id number] (Continued) GROSS DESCRIPTION (Continued) 5. The specimen is received in formalin labeled, Biopsy Mid Esophagus, and consists of a 0.8 x 0.5 x 0.1 cm aggregate of translucent rodríguez-pink irregular soft tissue fragments which is submitted entirely in one cassette. Signed by and Reported on: Donnie Najera MD 07/09 1709 END OF REPORT DEPARTMENT OF PATHOLOGY, [address] [place] [address] Donnie Najera M.D. Director [facility] # [id number] SEE RESULT BELOW Name: SASHA BURNETTE Ray : [address]: Cass Kwan MD Acct: [id number] Unit: [id number] AGE: 63 Location: [facility] Re12/29/18 SEX: F Status: DEP REF SPEC: [id number] NEVAEH: 12/29/[address] [facility] [address]: Cass Lopez MD REQ: [id number] RECD: 12/29/181202 STATUS: UTE OTERO DR: Chika Castillo MD _ ORDERED: LEVEL 4/5, IMMUNO-FIRST, SPEC STAIN ORG/2 COMMENTS: [id number] ADDENDUM Addendum: An immunohistochemical stain for Helicobacter [...] CONTINUED ON NEXT PAGE DEPARTMENT OF PATHOLOGY, [address] [place] [address] Donnie Najera M.D. Director [facility] # [id number] RUN DATE: 12/31/18 [facility] LAB LIVE PAGE 2 Patient: VASILESASHA [id number] (Continued) FINAL DIAGNOSIS (Continued) nonspecific reactive changes. [...] CONTINUED ON NEXT PAGE DEPARTMENT OF PATHOLOGY, [address] [place] [address] Donnie Najera M.D. Director [facility] # [id number] RUN DATE: 12/31/18 [facility] LAB LIVE PAGE 3 Patient: SASHA BURNETTE [id number] (Continued) GROSS DESCRIPTION (Continued) clot. Entirely submitted, [...] 1709 END OF REPORT DEPARTMENT OF PATHOLOGY, [address] [place] [address] Donnie Najera M.D. Director [facility] # [id number] SEE RESULT BELOW Name: SASHA BURNETTE : [address]: Cass Kwan MD Acct: [id number] Unit: [id number] AGE: 63 Location: [facility] Re12/29/18 SEX: F Status: DEP REF SPEC: [id number] NEVAEH: 12/29/18-0[address] [facility] [address]: Cass Lopez MD REQ: [id number] RECD: 12/29/181202 STATUS: UTE OTERO DR: Chika Castillo MD _ ORDERED: LEVEL 4/5, IMMUNO-FIRST, SPEC STAIN ORG/2 COMMENTS: [id number] ADDENDUM Addendum: An immunohistochemical stain for Helicobacter [...] CONTINUED ON NEXT PAGE DEPARTMENT OF PATHOLOGY, [address] [place] [address] Donnie Najera M.D. Director [facility] # [id number] RUN DATE: 12/31/18 [facility] LAB LIVE PAGE 2 Patient: SASHA BURNETTE [id number] (Continued) FINAL DIAGNOSIS (Continued) nonspecific reactive changes. [...] CONTINUED ON NEXT PAGE DEPARTMENT OF PATHOLOGY, [address] [place] [address] Donnie Najera M.D. Director [facility] # [id number] RUN DATE: 12/31/18 [facility] LAB LIVE PAGE 3 Patient: SASHA BURNETTE [id number] (Continued) GROSS DESCRIPTION (Continued) clot. Entirely submitted, [...] END OF REPORT DEPARTMENT OF PATHOLOGY, [address] [place] [id number] Donnie Najera M.D. Director [facility] # [id number] 5 Testing Not Performed by [facility] because referral test is NOT [facility] approved. Ju Bustillo from [facility] to speak to ordering provider. 6 Because ethnic data is not always readily [...] 15-29 5 Kidney failure <15 (or dialysis) 7 [facility] TEST IS: CERTOLIZUMAB LEVEL AND ANTIBODIES. [facility] TEST ID: [id number]. SEND TEST TO [facility], AND THEY WILL SEND IT OUT ELSEWHERE - TO ANOTHER LAB THAT IS [facility] APPROVED. PER JU BUSTILLO AT [facility]. [id number] 8 Total 25-Hydroxyvitamin D2 and D3 (25-OH-VitD) <10 ng/mL (severe deficiency) 10-19 ng/mL (mild to moderate deficiency) 20-50 ng/mL (optimum levels) 51-80 ng/mL (increased risk of hypercalciuria) >80 ng/mL (toxicity possible) 9 See Scanned Report Report faxed successfully to provider. [id number] at 0851 on 12/12/18. Scanned into documents Testing Not Performed by [facility] because referral test is NOT [facility] approved. Ju Bustillo from [facility] to speak to ordering provider. CORRECTED REPORT --- Corrected on 12/12/18 0849 --- Ref Lab Test previously reported as: Test not performed Testing Not Performed by [facility] because referral test is NOT [facility] approved. Ju Bustillo from [facility] to speak to ordering provider. 10 SEE RESULT BELOW Name: SASHA BURNETTE : [address]: Cass Kwan MD Acct: [id number] Unit: [id number] AGE: 63 Location: [facility] Re04/19/18 SEX: F Status: REG REF SPEC: [id number] NEVAEH: 04/19/18-[address]: Cass Lopez MD REQ: [id number] RECD: 04/21/18 STATUS: COMP _ SOURCE: STOOL SPDESC: ORDERED: C. ye PCR, Stool Culture, O P: Giar/Crypt Procedure Result Reported Site Stool Culture Final 04/23/18- 1048 ML Result No enteric pathogens isolated Testing for Salmonella, Shigella, Aeromonas, Plesiomonas, Yersinia and Campylobacter are included in a Stool Culture. Vibrio spp not routinely tested for in a stool culture. If testing is desired, please request specifically when placing test order. Sensitivities not routinely performed on stool isolates, as antibiotics may prolong the carriage rate of bacteria. Please contact the microbiology lab if sensitivities are required. Stool Specimen Description Final 04/21/18- 1729 ML Stool Color Brown Stool Form Nonformed Stool Consistency Liquid Shiga Toxin 1 2 Final 04/22/18- 1052 ML Organism 1 Negative Shiga Toxin 1 2 Immunochromatographic Assay C. difficile PCR Final 04/21/18- 1805 ML Organism 1 027 Presumptive NEGATIVE Organism 2 Toxigenic C.diff NEGATIVE O P: Giardia/Cryptospor Screen Final 04/22/18- 1101 ML CONTINUED ON NEXT PAGE DEPARTMENT OF PATHOLOGY, [address] [place] [address] Donnie Najera M.D. Director [facility] # [id number] Patient: SASHA BURNETTE [id number] (Continued) Specimen: [id number] Collected: 04/19/18-1200 Received: 04/21/18 (Continued) Procedure Result Reported Site O P: Giardia/Cryptospor Screen Final (continued) 04/22/18 1101 Organism 1 Neg Cryptosporidium/Giardia Giardia and cryptosporidium antigen testing performed by enzyme immunoassay. If patient is immunocompromised or has traveled to or is from a developing country, a full ova and parasite exam with microscopic (OPMIC) is recommended. All samples will be held one month in case full ova and parasite testing is requested. Contact the Microbiology Department at [phone]. TEST LIMITATIONS: As with all diagnostic procedures, the results obtained should be used in conjunction with other clinical information available the physician, including confirmation by another method. Negative results can occur in samples containing antigen below lower limits of detection of the assay. One negative specimen does not rule out the possibility of a parasitic infection. To improve detection it is recommended that three specimens be collected on separate days over a period of not more than seven days. The use of colonic washes, aspirates or other diluted sample types has not been established and could affect the performance of the assay. Stool samples contaminated with an oily or particulate base (eg. Barium, mineral oil etc.) could interfere with the test and are not recommended. * ML - Main Lab . END OF REPORT DEPARTMENT OF PATHOLOGY, [address] [place] [address] Donnie Najera M.D. Director [facility] # [id number] 11 Normal Range 180 to 914 Indeterminate Range 145 to 180 Deficient Range <145 12 Normal Range 180 to 914 Indeterminate Range 145 to 180 Deficient Range <145 13 Reference Range and Interpretation: TnI (ng/mL) Interpretation Less Than 0.03 ng/mL Not supportive of diagnosis of MD 0.03 - 0.50 ng/mL Indeterminate: suggest serial studies if clinically indicated. Greater than 0.5 ng/mL Consistent with diagnosis of MD 14 [id number] SEE RESULT BELOW Name: SASHA BURNETTE : [address]: Meghan ABEL Acct: [id number] Unit: [id number] AGE: 60 Location: LAB Re12/30/15 SEX: F Status: REG REF SPEC: [id number] NEVAEH: 12/30/15-[address]: Meghan GARCIAP REQ: [id number] RECD: 12/30/15 STATUS: COMP _ SOURCE: URINE SPDESC: ORDERED: Urine Culture Procedure Result Reported Site Urine Culture Final 01/01/16- 0753 ML Organism 1 ESCHERICHIA COLI Gloster Count 50-75,000 (Many) CFU/ML 1. ESCHERICHIA COLI M.I.C. RX --------- ------ Ampicillin >=32 R Cefazolin <=4 S Cefepime <=1 S Ceftriaxone <=1 S Ciprofloxacin <=0.25 S Gentamicin <=1 S Levofloxacin <=0.12 S Meropenem <=0.25 S Nitrofurantoin <=16 S Tetracycline <=1 S Pipercillin/Tazobactam <=4 S Trimethoprim/Sulfamethoxazole <=20 S Amoxicillin/Clavulanic Acid 4 S Aztreonam <=1 S Contact the Microbiology Department for any additional antibiotic reporting. * ML - MAIN LAB ([facility]) . END OF REPORT * ML=Testing performed at Main Lab DEPARTMENT OF PATHOLOGY, [address] [place] [address] Donnie Najera M.D. Director [facility] # [id number] 16 Normal Range 180 to 914 Indeterminate Range 145 to 180 Deficient Range <145 17 Test Performed by: [facility] [place] [place] [address] Server Support Technician: Thai Serrato II, M.D., Ph.D. 18 Test Performed by: [facility] [place] [place] [address] Server Support Technician: Thai Serrato II, M.D., Ph.D. 19 Acute inflammation: >10.00 20 Normal Range 180 to 914 Indeterminate Range 145 to 180 Deficient Range <145 21 No plain container received; rainbow only 22 SEE RESULT BELOW Name: SASHA BURNETTE : [address]: Kevin Kulkarni MD Acct: [id number] Unit: [id number] AGE: 59 Location: [facility] Re11/27/14 SEX: F Status: REG REF SPEC: [id number] NEVAEH: 11/27/14-[address]: Kevin Kulkarni MD REQ: [id number] RECD: 11/27/14 STATUS: COMP _ SOURCE: STOOL SPDESC: ORDERED: Stool Culture COMMENTS: No plain container received; rainbow only Procedure Result Verified Site Stool Culture Final 11/30/14- 1512 ML Result No enteric pathogens isolated Testing for Salmonella, Shigella, Aeromonas, Plesiomonas, Yersinia and Campylobacter are included in a Stool Culture. Vibrio spp not routinely tested for in a stool culture. If testing is desired, please request specifically when placing test order. Sensitivities not routinely performed on stool isolates, as antibiotics may prolong the carriage rate of bacteria. Please contact the microbiology lab if sensitivities are required. Shiga Toxin 1 2 Final 12/01/14- 1140 ML Test not performed * ML - MAIN LAB ([facility]) . END OF REPORT * ML=Testing performed at Main Lab DEPARTMENT OF PATHOLOGY, [address] [place] [address] Donnie Najera M.D. Director [facility] # [id number] 23 Normal Range 180 to 914 Indeterminate Range 145 to 180 Deficient Range <145 24 Acute inflammation: >10.00 25 Normal Range 180 to 914 Indeterminate Range 145 to 180 Deficient Range <145 26 Because ethnic data is not always readily [...] 15-29 5 Kidney failure <15 (or dialysis) 27 RUN DATE: 03/02/13 [facility] LAB LIVE PAGE 1 RUN TIME: [address] [place] [address] Specimen Inquiry Name: SASHA BURNETTE Ray : [address]: Kevin Kulkarni MD Acct: [id number] Unit: [id number] AGE: 58 Location: ENDO Re02/20/13 SEX: F Status: REG REF SPEC: [id number] NEVAEH: 02/20/130952 [facility] DR: Kevin Kulkarni MD REQ: [id number] RECD: 02/20/133 STATUS: RES _ SOURCE: MISC SOURC SPDESC:NOS ORDERED: Fungal - Other COMMENTS: Comment: brushing esophagus/R/O MONILLIA Procedure Result Verified Site Fungal Cult - Other Sources Preliminary 03/02/13 430 ML Organism 1 DREW ALBICANS END OF REPORT * ML=Testing performed at Main Lab DEPARTMENT OF PATHOLOGY, [facility] [employer] [place], [place] [address] Donnie Najera M.D. Director [facility] Permit #[id number] RUN DATE: 03/09/13 [facility] LAB LIVE PAGE 1 RUN TIME: [address] [place], [place] [address] Specimen Inquiry Name: SASHA BURNETTE : [address]: Kevin Kulkarni MD Acct: [id number] Unit: [id number] AGE: 58 Location: ENDO Re02/20/13 SEX: F Status: REG REF SPEC: [id number] NEVAEH: 02/20/[address] [facility] [address]: Kevin Kulkarni MD REQ: [id number] RECD: 02/20/13 STATUS: RES _ SOURCE: MISC SOURC SPDESC:NOS ORDERED: Fungal - Other COMMENTS: Comment: brushing esophagus/R/O MONILLIA Procedure Result Verified Site Fungal Cult - Other Sources Preliminary 03/09/13- 1309 ML Organism 1 DREW ALBICANS END OF REPORT * ML=Testing performed at Main Lab DEPARTMENT OF PATHOLOGY, [place], [place] [address] Donnie Najera M.D. Director [facility] Permit #[id number] 29 RUN DATE: 03/16/13 [facility] LAB LIVE PAGE 1 RUN TIME: [address] [facility] [place], [place] [address] Specimen Inquiry Name: SASHA BURNETTE : [address]: Kevin Kulkarni MD Acct: [id number] Unit: [id number] AGE: 58 Location: ENDO Re02/20/13 SEX: F Status: REG REF SPEC: [id number] NEVAEH: 02/20/[address]: Kevin Kulkarni MD REQ: [id number] RECD: 02/20/13 STATUS: COMP _ SOURCE: MISC SOURC SPDESC:NOS ORDERED: Fungal - Other COMMENTS: Comment: brushing esophagus/R/O MONILLIA Procedure Result Verified Site Fungal Cult - Other Sources Final 03/16/13- 1224 ML Organism 1 DREW ALBICANS END OF REPORT * ML=Testing performed at Main Lab DEPARTMENT OF PATHOLOGY, [address] [place] [address] Donnie Najera M.D. Director [facility] Permit #[id number] 30 Test Performed by: [address] [address] Server Support Technician: Rambo Hogue III, M.D. 31 Serologic response to B. burgdorferi infection is not detected, but cannot rule out early infection during which low or undetectable antibody levels to B. burgdorferi may be present. If clinically indicated, a new serum specimen should be submitted in 7-14 days. Test Performed by: [address] [address] Server Support Technician: Rambo Hogue III, M.D. 32 -- REFERENCE VALUE -- <0.4 (Negative) 33 -- REFERENCE VALUE -- <0.4 (Negative) Test Performed by: [place] [address] Server Support Technician: Rambo Hogue III, M.D. 34 Test Performed by: [place] [address] Server Support Technician: Rambo Hogue III, M.D. 35 AOT-ALK 36 AOT-ALK 37 Interpretation: <10 (severe deficiency) -- REFERENCE VALUE -- 25-HYDROXY D TOTAL (D2+D3) Optimum levels in the normal population are 25-80 Test Performed by: [place] [address] Server Support Technician: Rambo Hogue III, M.D. 38 -- REFERENCE VALUE -- Not present Test Performed by: [place] [address] Server Support Technician: Rambo Hogue III, M.D. 39 RUN DATE: 09/04/12 [facility] LAB LIVE PAGE 1 RUN TIME: [address] [place] [address] Specimen Inquiry Name: SASHA BURNETTE : [address]: Meghan Eduardo [facility] Acct: [id number] Unit: [id number] AGE: 57 Location: [facility] Re09/02/12 SEX: F Status: REG REF SPEC: [id number] NEVAEH: 09/02/[address]: Meghan Eduardo [facility] REQ: [id number] RECD: 09/02/12 STATUS: COMP _ SOURCE: URINE SPDESC: ORDERED: Urine Culture Procedure Result Verified Site Urine Culture Final 09/04/12922 ML Organism 1 ESCHERICHIA COLI Gloster Count >100,000 (Many) CFU/ML 1. ESCHERICHIA COLI M.I.C. RX --------- ------ Amikacin <=2 S Ampicillin >=32 R * Ampicillin/Sublactam 16 I Cefazolin <=4 S Cefepime <=1 S Cefoxitin <=4 S Ceftazidime <=1 S Ceftriaxone <=1 S Ciprofloxacin <=0.25 S Gentamicin <=1 S Imipenem <=1 S Levofloxacin <=0.12 S Nitrofurantoin <=16 S Piperacillin 64 I Tigecycline <=0.5 S Trimethoprim/Sulfamethoxazole <=20 S * These antibiotics are not available in the [facility] Formulary Contact the Microbiology Department for any additional antibiotic reporting. END OF REPORT * ML=Testing performed at Main Lab DEPARTMENT OF PATHOLOGY, [address] [place] [address] Donnie Najera M.D. Director [facility] Permit #[id number] 40 Test Performed by: [facility] Dpt of Lab Med and Pathology [address] [place] [address] Server Support Technician: Rambo Hogue III, M.D. 41 Test Performed by: [facility] D[facility] of Lab Med and Pathology [address] [place] [address] Server Support Technician: Rambo Hogue III, M.D. Procedures Date Code Description Status 12/29/2018 86334 Moderate Sedation Services; Same Phys Each Additional 15 Completed Mins 12/29/2018 46072 EGD+Biopsy Single Or Multiple Completed 12/04/2018 99246 Admin.Injection-Prophylactic Completed 11/05/2018 93018 Admin.Injection-Prophylactic Completed 10/29/2018 38019 Capsule Endoscopy Completed 10/01/2018 63239 Admin.Injection-Prophylactic Completed 06/26/2018 64484 Admin.Injection-Prophylactic Completed 06/03/2018 24536 Breath Hydrogen Completed 05/21/2018 88050 Admin.Injection-Prophylactic Completed 04/16/2018 09066 Admin.Injection-Prophylactic Completed 02/01/2017 72364 Admin.Injection-Prophylactic Completed 12/24/2016 24567 Admin.Injection-Prophylactic Completed 11/16/2016 65802 Admin.Injection-Prophylactic Completed 10/19/2016 51213 Admin.Injection-Prophylactic Completed 09/13/2016 45875 Admin.Injection-Prophylactic Completed 07/27/2016 73205 Admin.Injection-Prophylactic Completed 06/28/2016 31754 Admin.Injection-Prophylactic Completed 05/28/2016 35977 Admin.Injection-Prophylactic Completed 04/23/2016 72788 Admin.Injection-Prophylactic Completed 03/22/2016 99572 Admin.Injection-Prophylactic Completed 02/08/2016 54116 Admin.Injection-Prophylactic Completed 01/11/2016 44657 Admin.Injection-Prophylactic Completed 12/02/2015 67968 Admin.Injection-Prophylactic Completed 11/04/2015 40647 Admin.Injection-Prophylactic Completed 10/07/2015 15596 Admin.Injection-Prophylactic Completed 09/09/2015 17502 Admin.Injection-Prophylactic Completed 08/02/2015 48938 Admin.Injection-Prophylactic Completed 07/07/2015 28441 Admin.Injection-Prophylactic Completed 06/07/2015 36924 Admin.Injection-Prophylactic Completed 06/02/2015 32589 Admin.Injection-Prophylactic Completed 04/14/2015 70605 Admin.Injection-Prophylactic Completed 03/17/2015 64097 Admin.Injection-Prophylactic Completed 02/17/2015 04370 Admin.Injection-Prophylactic Completed 01/18/2015 95330 EKG+Interpretation+Report (12+ Leads) Completed 01/13/2015 90186 Admin.Injection-Prophylactic Completed 12/10/2014 34952 Admin.Injection-Prophylactic Completed 11/04/2014 89682 Admin.Injection-Prophylactic Completed 09/30/2014 37848 Admin.Injection-Prophylactic Completed 08/27/2014 69114 Admin.Injection-Prophylactic Completed 07/21/2014 52154 Admin.Injection-Prophylactic Completed 06/22/2014 60025 Admin.Injection-Prophylactic Completed 05/13/2014 92298 Admin.Injection-Prophylactic Completed 04/06/2014 97841 Admin.Injection-Prophylactic Completed 02/25/2014 86987 Admin.Injection-Prophylactic Completed 01/12/2014 46306 Admin.Injection-Prophylactic Completed 12/04/2013 48277 Admin.Injection-Prophylactic Completed 11/05/2013 61989 Admin.Injection-Prophylactic Completed 10/08/2013 42033 Admin.Injection-Prophylactic Completed 09/22/2013 49060 Oximetry-Office; Pulse Oximetry Completed 08/07/2013 55495 Admin.Injection-Prophylactic Completed 07/06/2013 91719 Admin.Injection-Prophylactic Completed 06/02/2013 16657 Admin.Injection-Prophylactic Completed 05/01/2013 14853 Admin.Injection-Prophylactic Completed 04/30/2013 63415 Admin.Injection-Prophylactic Completed 04/01/2013 32933 Admin.Injection-Prophylactic Completed 02/25/2013 61970 Colonoscopy +BX Thru Stoma Completed 02/20/2013 05322 EGD+Biopsy Single Or Multiple Completed 12/24/2012 78018 Admin.Injection-Prophylactic Completed 11/07/2012 40580 Admin.Injection-Prophylactic Completed 08/05/2012 23916 Admin.Injection-Prophylactic Completed 05/27/2012 52539 Admin.Injection-Prophylactic Completed 04/30/2012 08622 Admin.Injection-Prophylactic Completed 04/01/2012 11879 Admin.Injection-Prophylactic Completed 2012 72878 Admin.Injection-Prophylactic Completed 01/11/2012 63661 Admin.Injection-Prophylactic Completed 12/12/2011 47806 Admin.Injection-Prophylactic Completed 11/12/2011 26420 Admin.Injection-Prophylactic Completed 10/12/2011 76391 Admin.Injection-Prophylactic Completed 10/12/2011 23810 Admin.Injection-Prophylactic Completed 09/14/2011 39111 Admin.Injection-Prophylactic Completed 09/04/2011 10663 Admin.Injection-Prophylactic Completed 08/17/2011 85064 Admin.Injection-Prophylactic Completed 08/08/2011 78741 Admin.Injection-Prophylactic Completed 07/20/2011 03892 Admin.Injection-Prophylactic Completed 07/03/2011 36588 Admin.Injection-Prophylactic Completed 06/19/2011 71396 Admin.Injection-Prophylactic Completed 06/05/2011 83570 Admin.Injection-Prophylactic Completed 06/05/2011 83747 Admin.Injection-Prophylactic Completed 05/22/2011 81912 Admin.Injection-Prophylactic Completed 05/08/2011 33717 Admin.Injection-Prophylactic Completed 04/24/2011 35247 Admin.Injection-Prophylactic Completed 04/10/2011 60680 Admin.Injection-Prophylactic Completed 02/27/2011 11680 Admin.Injection-Prophylactic Completed 01/25/2011 96021 Admin.Injection-Prophylactic Completed 11/24/2010 57995 Admin.Injection-Prophylactic Completed 10/26/2010 04162 Admin.Injection-Prophylactic Completed 09/28/2010 33674 Admin.Injection-Prophylactic Completed 08/29/2010 71077 Admin.Injection-Prophylactic Completed 08/01/2010 54578 Admin.Injection-Prophylactic Completed 06/30/2010 91264 Admin.Injection-Prophylactic Completed 06/19/2010 28108 Admin.Injection-Prophylactic Completed 05/26/2010 90694 Admin.Injection-Prophylactic Completed 05/19/2010 38668 Admin.Injection-Prophylactic Completed 05/16/2010 40804 Admin.Injection-Prophylactic Completed 05/12/2010 37347 Admin.Injection-Prophylactic Completed 04/28/2010 48911 Admin.Injection-Prophylactic Completed 04/14/2010 31650 Admin.Injection-Prophylactic Completed 04/11/2010 14460 Admin.Injection-Prophylactic Completed 04/07/2010 40779 Colonoscopy +BX Thru Stoma Completed 03/31/2010 16741 Admin.Injection-Prophylactic Completed 03/20/2010 82037 Admin.Injection-Prophylactic Completed 02/28/2010 52018 Admin.Injection-Prophylactic Completed 02/16/2010 65854 Admin.Injection-Prophylactic Completed 02/03/2010 29273 Admin.Injection-Prophylactic Completed 01/31/2010 00441 Admin.Injection-Prophylactic Completed 01/20/2010 98521 Admin.Injection-Prophylactic Completed 01/06/2010 19199 Admin.Injection-Prophylactic Completed 12/26/2009 81802 Admin.Injection-Prophylactic Completed 11/14/2009 56335 Admin.Injection-Prophylactic Completed 10/12/2009 20582 Admin.Injection-Prophylactic Completed 07/25/2009 82583 Admin.Injection-Prophylactic Completed 05/25/2009 38470 Admin.Injection-Prophylactic Completed 04/07/2009 83272 Admin.Injection-Prophylactic Completed 03/24/2009 69644 Admin.Injection-Prophylactic Completed 03/11/2009 09332 Admin.Injection-Prophylactic Completed 02/21/2009 52196 Admin.Injection-Prophylactic Completed 02/10/2009 89890 Admin.Injection-Prophylactic Completed 01/27/2009 36056 Admin.Injection-Prophylactic Completed 12/30/2008 55495 Admin.Injection-Prophylactic Completed 12/22/2008 18983 Admin.Injection-Prophylactic Completed 12/16/2008 21723 Admin.Injection-Prophylactic Completed 12/03/2008 47798 Admin.Injection-Prophylactic Completed 11/18/2008 28626 Admin.Injection-Prophylactic Completed 11/04/2008 35508 Admin.Injection-Prophylactic Completed 10/21/2008 69501 Admin.Injection-Prophylactic Completed 10/07/2008 87482 Admin.Injection-Prophylactic Completed 09/30/2008 43340 Admin.Injection-Prophylactic Completed 08/26/2008 73990 Admin.Injection-Prophylactic Completed 08/12/2008 36053 Admin.Injection-Prophylactic Completed 08/03/2008 33673 Admin.Injection-Prophylactic Completed 07/16/2008 13796 Admin.Injection-Prophylactic Completed 06/23/2008 72757 Admin.Injection-Prophylactic Completed 05/24/2008 49434 Admin.Injection-Prophylactic Completed 04/28/2008 44571 Admin.Injection-Prophylactic Completed 01/28/2008 82955 Admin.Injection-Prophylactic Completed 12/23/2007 22957 Admin.Injection-Prophylactic Completed 11/27/2007 57881 Admin.Injection-Prophylactic Completed 09/25/2007 82669 Admin.Injection-Prophylactic Completed 08/26/2007 73877 Admin.Injection-Prophylactic Completed 07/29/2007 73565 Admin.Injection-Prophylactic Completed 07/01/2007 65806 Admin.Injection-Prophylactic Completed 06/03/2007 42418 Admin.Injection-Prophylactic Completed 11/27/2006 47280 Capsule Endoscopy Completed 10/30/2005 97797 Admin.Injection-Prophylactic Completed 09/26/2005 16365 Admin.Injection-Prophylactic Completed 08/23/2005 67268 Admin.Injection-Prophylactic Completed 08/29/2004 49178 Admin.Theraputic/Prophylactic Completed 06/30/2004 46835 Admin.Theraputic/Prophylactic Completed 04/20/2004 98854 Admin.Theraputic/Prophylactic Completed 03/09/2004 47221 Admin.Theraputic/Prophylactic Completed 01/11/2004 90871 Admin.Theraputic/Prophylactic Completed 11/30/2003 79419 Admin.Theraputic/Prophylactic Completed 10/26/2003 85832 Admin.Theraputic/Prophylactic Completed 09/24/2003 39099 Admin.Theraputic/Prophylactic Completed 08/23/2003 86403 Admin.Theraputic/Prophylactic Completed 07/30/2003 99052 Admin.Theraputic/Prophylactic Completed 06/23/2003 00226 Admin.Theraputic/Prophylactic Completed 05/27/2003 49630 Admin.Theraputic/Prophylactic Completed 04/21/2003 84486 Admin.Theraputic/Prophylactic Completed 03/24/2003 78359 Admin.Theraputic/Prophylactic Completed Encounters Type Date Location Provider Dx Diagnosis Office Visit 09/02/2018 [facility] K50.818 Crohn's disease of 1:30p [facility], both trang and lg MD int w oth complication K50.819 Crohn's disease of both small and lg int w unsp comp R93.3 Abnormal findings on dx imaging of prt digestive tract K21.9 Gastro-esophageal reflux disease without esophagitis Z79.899 Other lobsterman (current) drug therapy Office 05/13/2018 [facility] K50.818 Crohn's disease Visit 1:30p [facility] MD of both small and lg int w oth complication K50.819 Crohn's disease of both small and lg int w unsp comp R10.9 Unspecified abdominal pain R10.84 Generalized abdominal pain R63.4 Abnormal weight loss R11.0 Nausea Z79.899 Other lobsterman (current) drug therapy Office 04/08/2018 [facility] K50.818 Crohn's disease Visit 2:00p [facility] MD of both small and lg int w oth complication K50.819 Crohn's disease of both small and lg int w unsp comp R63.4 Abnormal weight loss R19.7 Diarrhea, unspecified R10.84 Generalized abdominal pain Z79.899 Other lobsterman (current) drug therapy E53.9 Vitamin B deficiency, unspecified Office Visit 09/07/2016 [facility]enter[facility] Kevin Rich E78.2 Mixed 2:00p [facility] MD hyperlipidemia I10 Essential (primary) hypertension E87.6 Hypokalemia Z72.0 Tobacco use K50.00 Crohn's disease of small intestine without complications Z00.00 Encntr for general adult medical exam w/o abnormal findings Office Visit 03/06/2016 [facility] Kevin Rich K50.00 Crohn's disease of 2:30p [facility] MD small intestine without complications E55.9 Vitamin D deficiency, unspecified J30.89 Other allergic rhinitis Office 02/13/2016 [facility]enterology Meghan H26.9 Unspecified Visit 2:15p [facility] Office 11/01/2015 [facility] Kevin Rich K50.00 Crohn's disease Visit 2:30p [facility] MD of small intestine without complications R14.0 Abdominal distension (gaseous) D51.3 Other dietary vitamin B12 deficiency anemia Office Visit 08/02/2015 [facility] Kevin Rich K50.018 Crohn's disease 2:00p [facility] MD of small intestine with other complication K50.00 Crohn's disease of small intestine without complications E53.9 Vitamin B deficiency, unspecified Z79.899 Other detention (current) drug therapy Office Visit 06/09/2015 [facility] Rich K50.00 Crohn's disease of 3:00p [facility] MD small intestine without complications Office Visit 05/04/2015 [facility]enterology Kianna Palencia R10.11 Right upper 11:00a [facility], quadrant pain [employer] K50.919 Crohn's disease, unspecified, with unspecified complications E53.9 Vitamin B deficiency, unspecified Office 04/01/2015 [facility]enter[facility] Kianna Palencia K50.919 Crohn's disease, Visit 1:00p [facility], unspecified, with [employer] unspecified complications Office 01/18/2015 [facility] Kianna Palencia V72.84 Examination Visit 3:00p [facility], Preoperative [employer] Unspec Office 11/19/2014 [facility] 555.9 Crohn's Disease Visit 2:15p [facility] MD 995.3 Allergy Unspec Office Visit 07/02/2014 2:30p [facility] Rich 719.41 [facility] K[facility] MD Shoulder Region 723.4 Brachial Neuritis Or Radiculitis NOS Office Visit 04/06/2014 2:00p [facility] 555.9 [facility] MD Disease 719.41 Pain Joint Shoulder Region 401.9 Hypertension Unspec Office Visit 02/15/2014 [facility] 401.9 Hypertension 11:30a [facility] MD Unspec Office Visit 12/04/2013 [facility] Rich 555.9 Crohn's Disease 2:00p [facility] MD V15.06 Allergy To Insects V70.0 Examination General Medical Routine AT Health Care Facility Office Visit 09/22/2013 [facility] Meghan 465.9 URI Upper 10:45a [facility] Respiratory ACCOUNTANT PROPERTY-C Infections Acute Unspec Sites Office Visit 08/04/2013 [facility] Rich 555.9 Crohn's Disease 2:00p [facility] MD 719.49 Pain Joint Multiple Sites Office Visit 06/02/2013 [facility] V58.69 Medications Long 1:30p [facility] MD Term (Current) Use Encounter 555.9 Crohn's Disease Office Visit 04/17/2013 1:30p [facility] 555.9 [facility] MD Disease Office Visit 03/17/2013 1:30p [facility] 555.9 [facility] MD Disease Office Visit 03/16/2013 11:00a [facility] 555.9 [facility] Disease ACCOUNTANT PROPERTY-C 782.3 Edema 782.1 Rash & Other Nonspec Skin Eruption Office Visit 02/24/2013 [facility] Rich 789.00 Pain Abdominal 11:15a [facility] MD Unspec Site 555.9 Crohn's Disease Office Visit 02/10/2013 [facility] 789.00 Pain Abdominal 10:00a [facility] MD Unspec Site 555.9 Crohn's Disease Office Visit 01/27/2013 8:30a Maria De Jesus Rich 555.9 [facility] MD Disease 789.00 Pain Abdominal Unspec Site Office Visit 01/20/2013 [facility] Meghan 789.00 Pain Abdominal 1:30p [facility] Unspec Site ACCOUNTANT PROPERTY-C 783.21 Loss Of Weight Office Visit 01/13/2013 [facility] Meg[facility] Eduardo 555.9 [facility]hn's 1:45p [facility] ACCOUNTANT PROPERTY-C Disease 783.21 Loss Of Weight 789.00 Pain Abdominal Unspec Site Office Visit 01/06/2013 3:30p [facility] Meghan Eduardo, 729.5 [facility] In [facility]-C Limb 783.21 Loss Of Weight Office Visit 11/28/2012 [facility] Rich 789.06 Pain Abdominal 3:45p [facility] MD Epigastric 530.81 Esophageal Reflux 266.2 B Complex Deficiencies Other 789.00 Pain Abdominal Unspec Site Office Visit 09/09/2012 11:00a Maria De Jesus Jackman.Tara [facility] MD Disease 272.4 Hyperlipidemia Other Unspec 599.0 UTI Urinary Tract Infection Site Not Spec Office Visit 08/13/2012 [facility] Meg[facility] Eduardo 555.9 Crohn's 1:00p [facility] ACCOUNTANT PROPERTY-C Disease Office Visit 07/29/2012 [facility] Eduardo 555.9 Crohn's 1:45p [facility]-Davin Disease 719.49 Pain Joint Multiple Sites Office Visit 07/02/2012 [facility] Meghan 789.00 Pain Abdominal 11:00a [facility] Unspec Site ACCOUNTANT PROPERTY-C 535.50 Gastritis & Gastroduodenitis Unspec W/O Hemorrhage Office Visit 04/01/2012 11:00a Maria De Jesus Jackman.[facility] MD Disease Office Visit 2012 11:15a Maria De Jesus Jackman.[facility] ACCOUNTANT PROPERTY-C Office Visit 01/11/2012 1:30p Maria De Jesus Jackman.[facility] MD Disease Office Visit 10/09/2011 1:00p Maria De Jesus Jackman.[facility] MD Disease Office Visit 08/24/2011 1:00p Maria De Jesus Jackman.[facility] MD Disease Office Visit 07/10/2011 11:15a Maria De Jesus Jackman.[facility] MD Disease Office Visit 05/08/2011 11:30a Maria De Jesus Jackman.[facility] MD Disease 266.2 B Complex Deficiencies Other Office Visit 04/17/2011 2:00p Maria De Jesus Jackman.[facility] MD Disease Office Visit 04/03/2011 10:00a Maria De Jesus Jackman.[facility] MD Disease Office Visit 03/16/2011 1:15p [facility] 03/15/2011 9:30a [facility] [place] Disease ACCOUNTANT PROPERTY-C Office Visit 03/07/2011 1:45p Maria De Jesus [facility] Disease ACCOUNTANT PROPERTY-C 789.00 Pain Abdominal Unspec Site 783.21 Loss Of Weight Office Visit 12/05/2010 2:00p Maria De Jesus [facility]ulk[facility] MD Disease 789.00 Pain Abdominal Unspec Site Office Visit 08/22/2010 10:15a Maria De Jesus Jackman.[facility] Kulkarni MD Disease 783.21 Loss Of Weight Plan of Treatment Future Appointment(s):03/02/2019 3:00 pm - Cass Kwan [facility]12/16/2018 - Cass Kwan MDK50.818 Crohn's disease of both small and large intestine with other ahsmpcrxmztzH99.9 Gastro-esophageal reflux disease without xeggjekhjxbJ24.84 Generalized abdominal pain
[2019-02-16 11:40] VITALS: BP 142/74
--- NOTE | 2019-02-16 11:56 | UC ---
Back Pain HPI - HPI Summary HPI Summary: 63 yo female presents s/p fall. She tells me that last night she was sitting watching tv and her phone rang. She sprang up to get it and didn't realize that her left foot was asleep. She inverted her left ankle and fell on her right side injuring her right hand, elbow, shoulder, and right ribs. Pain has continued into today. She is ambulatory without assistance. She has not taken any OTC medications for her discomfort, but does smoke marijuana take CBD oil which helps her pain. Denies hitting her head or LOC. Denies numbness, tingling , or back injury/pain. - History of Current Complaint Chief Complaint: UCTrauma Stated Complaint: ANKLE INJ/ARM INJ/BACK PAIN ETC. Time Seen by Provider: 02/16/19 11:56 Hx Obtained From: Patient Onset/Duration: Sudden Onset Severity Initially: Moderate Severity Currently: Moderate Pain Intensity: 7 Pain Scale Used: 0-10 Numeric - Allergies/Home Medications Allergies/Adverse Reactions: Allergies Allergy/AdvReac Type Severity Reaction Status Date / Time infliximab [From Remicade] Allergy Severe Tachycardia Verified 02/16/19 11:41 adhesive tape Allergy Unknown Rash And Verified 02/16/19 11:41 Itching paroxetine [From Paxil] Allergy Unknown Verified 02/16/19 11:41 Reaction Details Tetanus Vaccines and Toxoid Allergy Swelling Verified 02/16/19 11:41 aspirin AdvReac Bleeding Verified 02/16/19 11:41 sulfasalazine AdvReac Headache Verified 02/16/19 11:41 [From Azulfidine] adhesive tapes (plastic) Allergy Intermediate Rash And Uncoded 02/16/19 11:41 Itching PMH/Surg Hx/FS Hx/Imm Hx - Additional Past Medical History Additional PMH: Crohn's Cardiovascular History: Hypertension Neurological History: CVA - Surgical History Surgical History: Yes Surgery Procedure, Year, and Place: BILAT THR [facility], W/ REVISIONS OF BOTH 2011 [facility]. 1990 C-4,5,6,7 FUSION X3 [facility]. RECTUM REMOVED [facility]---. CATARACTS BILAL EYES. CHOLECYSTECTOMY. SEVERAL SMALL BOWEL EXCISIONS W/ COLOSTOMY [facility]. YOUNG CHILD FX OF RIGHT CLAVICLE. 01/2015 RT HAND/ LEFT HAND AND ELBOWS CARPAL TUNNEL RELEASE,ULNAR NERVE. DECOMPRESSION [facility]. RIGHT ROTATOR CUFF RESURFACED. -implanted continuous cardiac loop monitor 2019. -right and left total hip replacements and subsequent revisions - Family History Known Family History: Positive: Cardiac Disease - CHF (mother) Family History: FHx of breast cancer - Social History Alcohol Use: None Substance Use Type: Marijuana Substance Use Comment - Amount & Last Used: medical marijuana Smoking Status (MU): Former Smoker Type: Cigarettes Amount Used/How Often: 1PPEVERY 2 WEEKS, WAS 1PPD 1975..RECENTLY TRYING TO STOP Length of Time of Smoking/Using Tobacco: 30+ YEARS Have You Smoked in the Last Year: Yes When Did the Patient Quit Smoking/Using Tobacco: 07/22/2018 Household Exposure Type: Cigarettes - Immunization History Most Recent Influenza Vaccination: 2018 Most Recent Pneumonia Vaccination: unsure but has had it Review of Systems All Other Systems Reviewed And Are Negative: Yes Constitutional: Positive: Negative Skin: Positive: Negative Respiratory: Positive: Negative Cardiovascular: Positive: Negative Gastrointestinal: Positive: Negative Motor: Positive: Negative Neurovascular: Positive: Negative Musculoskeletal: Positive: Other: - Right shoulder, elbow, hand, and rib pain. Left ankle pain. Neurological: Positive: Negative Psychological: Positive: Negative Physical Exam - Summary Physical Exam Summary: GENERAL: NAD. WDWN. No pain distress. SKIN: No rashes, sores, or open wounds. HEENT: Head: AT/NC NECK: Supple. Nontender. No lymphadenopathy. CHEST: CTAB. No r/r/w. No accessory muscle use. Breathing comfortably and in no distress. CV: Pulses intact radial and ulnar, DP, and PT. Cap refill <2seconds MSK: LEFT ANKLE: Mild TTP at ATFL with mild edema. FROM. Strength 5/5. Negative talar tilt. No increased laxity. RIGHT HAND: Mild edema at right wrist. FROM, but pain with flexion. Strength 5/5 including triage assistant strength. No snuffbox tenderness. RIGHT elbow: FROM. NTTP. No edema. RIGHT SHOULDER: FROM, but pain with raising above her head. NTTP. No edema or deformity. RIGHT RIBS: Mild TTP at midaxillary 7th and 8th ribs. NEURO: Alert. Sensations intact C4-T1. PSYCH: Age appropriate behavior. Triage Information Reviewed: Yes Vital Signs: Initial Vital Signs Temp 98.2 F 02/16/19 11:29 Pulse 86 02/16/19 11:29 Resp 16 02/16/19 11:29 BP 142/74 02/16/19 11:29 Pulse Ox 96 02/16/19 11:29 Vital Signs Reviewed: Yes Back Pain Course/Dx - Course Course Of Treatment: Shoulder XR: IMPRESSION: No fracture of the right shoulder is noted. Rotator cuff repair. Elbow XR:IMPRESSION: NO ACUTE OSSEOUS INJURY. IF SYMPTOMS PERSIST, RECOMMEND REPEAT IMAGING. Hand XR: IMPRESSION: OSTEOPENIA. OSTEOARTHRITIS. NO ACUTE OSSEOUS INJURY. IF SYMPTOMS PERSIST, RECOMMEND REPEAT IMAGING Ankle XR: IMPRESSION: JOINT EFFUSION. NO ACUTE OSSEOUS INJURY. IF SYMPTOMS PERSIST, RECOMMEND REPEAT IMAGING. CXR RIBS: IMPRESSION: 1. OSTEOPENIA. 2. SMALL RIGHT PLEURAL EFFUSION. 3. NO APPRECIABLE DISPLACED RIB FRACTURE OR PNEUMOTHORAX. Discussed results with pt. Small right Pleural effusion appears chronic and she is aware of this. Advised to rest and apply ice to areas of discomfort. She declines pain medication at this time and wishes to continue smoking marijuana and taking CBD oil that helps her discomfort. Advised to f/u with PCP for a recheck in 3 days. - Differential Dx/Diagnosis Provider Diagnosis: Fall, Right hand pain, Right elbow pain, Rib pain on right side, Left ankle pain Discharge - Sign-Out/Discharge Documenting (check all that apply): Patient Departure All imaging exams completed and their final reports reviewed: Yes - Discharge Plan Condition: Stable Disposition: HOME Patient Education Materials: Ankle Sprain (ED), Wrist Sprain (ED) Referrals: Chika Castillo MD [Primary Care Provider] - Additional Instructions: If you develop a fever, shortness of breath, chest pain, new or worsening symptoms - please call your PCP or go to the ED immediately. Your blood pressure was high at todays visit. Please see your primary provider within 4 weeks for recheck and re-evaluation. 1) Rest, Ice, and elevate your ankle to reduce pain and swelling 2) Use your at home pain medicine for discomfort as directed - Billing Disposition and Condition Condition: STABLE Disposition: Home - Attestation Statements Provider Attestation: Per institutional requirements, I have reviewed the chart, however, I was not consulted specifically or made aware of this patient by the midlevel provider. I did not personally evaluate, interact with , or disposition this patient. Status of Scribe Document: Ready
== END 2019-02-16 13:22 | disposition home or self-care (01) ==
LOC: UCEAST 11:18
DX: M25.572 Pain in left ankle and joints of left foot (principal); M79.641 Pain in right hand; M25.521 Pain in right elbow; R07.81 Pleurodynia; I10 Essential (primary) hypertension; Z87.891 Personal history of nicotine dependence; Z88.2 Allergy status to sulfonamides
CPT/HCPCS: 99212; G0463

== ENCOUNTER 2019-07-18 19:39 | Emergency (ER) | payer MEDICARE, MEDICAID ==
--- OUTSIDE RECORDS SUMMARY | 2019-07-18 19:44 | XMS REPORT | Continuity of Care Document ---
:1955 External Reference #:[id number] Author Name Cass Kwan MD Address [address] [place] [id number] Care Team Providers Name Role Phone Gerardo Atkinson MD Care Team Information Humanities And Languages Professor [phone] Dimitrios Richardson MD - Surgery Care Team Information Humanities And Languages Professor [phone] Danielle Pruitt MD Care Team Information Humanities And Languages Professor [phone] Chika Castillo M.D. Care Team Information Humanities And Languages Professor [phone] Rosalina Haji FNP Care Team Information Humanities And Languages Professor [phone] Problems Active Problems Provider Date Crohn's disease Kevin Kulkarni MD Onset: 01/11/2012 Gastroesophageal reflux disease Kevin Kulkarni MD Onset: 11/28/2012 Vitamin B-complex deficiency Kevin Kulkarni MD Onset: 11/28/2012 Hyperlipidemia Kevin Kulkarni MD Onset: 11/28/2012 Nausea SEEMA Alonzo Onset: 06/14/2014 Malaise and fatigue SEEMA Alonzo Onset: 06/14/2014 Pre-surgery evaluation SEEMA Alonzo Onset: 01/18/2015 Problem Onset: Essential hypertension Kevin Kulkarni MD Onset: 09/07/2016 Social History Type Date Description Comments Sex Unknown Tobacco Use Start: Unknown End: Unknown Patient is a former smoker Smoking Status Reviewed: 06/26/19 Patient is a former smoker Allergies, Adverse Reactions, Alerts Active Allergies Reaction Severity Comments Date Adhesive Tapes (Plastic) Rash And Itching Moderate 04/26/2015 Aspirin 12/30/2015 Azulfidine 12/30/2015 Remicade 12/30/2015 Tetanus Immune Globulin 12/30/2015 Paxil 09/04/2016 Inactive Allergies Aspirin 01/11/2012 Tetanus Toxoids 01/11/2012 Paxil 01/11/2012 Azulfidine 01/11/2012 NKDA 04/27/2015 Medications Active Medications SIG Qnty Indications Ordering Date Provider Hemp Oil 5 qd Cass 06/26/2019 MD Aniya Protonix take 1 tablet 60tabs Cass 12/16/2018 40mg Tablets daily. take 30-[address] minutes before meal. Karaya Seal Drainable apply one daily 30units Cass 07/05/2016/12" Length/Belt code: z43.2 ref.# MD Aniya Tabs/Adhesive 3223 1-/2" Misc Kioossx-Sgujwnsly-Cva pm Unknown 05/18/2015 c 333-133-5mg Tablets Cyanocobalamin inject 1 3units Cass 01/14/2015 milliliters MD Aniya 1000mcg/ML Solution monthly Amlodipine Besylate 1 by mouth every 30tabs Kevin A. 03/08/2014 day Shad HOLLEY 10mg Tablets Lomotil 1-2 tablets every 30tabs Kevin A. 07/04/2012 2.5-0.025mg 6 hours as needed Shad HOLLEY Tablets Medagenics Powder bid Unknown Naltrexone HCL Unknown Magnesium Unknown Gabapentin take 1-3 capsule Unknown 100mg by mouth at Capsules bedtime if needed for Leg Pain Atenolol take 1 tablet by Unknown 25mg Tablets mouth once daily if needed for Rapid Heart Rate Atorvastatin Calcium Unknown 40mg Tablets Ranitidine HCL Unknown 150mg Tablets Clopidogrel Bisulfate Unknown 75mg Tablets History Medications Stelara single IV infusion Cass Kwan, 01/12/2019 - 130mg/26ML weight based 260 mg-pt 01/12/2019 Solution is 47 kg Stelara one injection Cass Jose-Jessica, 01/12/2019 - 45mg/0.5ML subcutaneously every 8 01/12/2019 Soln Prefill weeks Syringe Stelara inject 1 syringe 1ml Cass Aniya, 01/12/2019 - 90mg/ml subcutaneously every 8 02/23/2019 Soln Prefill weeks Syringe Medications Administered in Office Medication SIG Qnty Indications Ordering Provider Date B12 To 500MG Nurse 05/29/2019 Injection B12 To 500MG Nurse 04/30/2019 Injection B12 To 500MG Nurse 03/06/2019 Injection B12 To 500MG Nurse 01/16/2019 Injection B12 [...] MD 09/02/2018 200MG/ML (Cimzia) Injection Injection Certolizumab Susan Kwan MD 09/02/2018 200MG/ML (Cimzia) Injection B12 [...] MD 07/07/2009 Injection B12 To 500MG Meghan Eduardo, CORRECTIONAL FACILITY PSYCHIATRIST-C 05/25/2009 Injection B12 To 500MG Meghan Eduardo, CORRECTIONAL FACILITY PSYCHIATRIST-C 04/18/2009 Injection B12 To 500MG Meghan Eduardo, CORRECTIONAL FACILITY PSYCHIATRIST-C 03/21/2009 Injection Depo-Medrol Kevin Kulkarni MD 03/11/2009 [...] MD 10/30/2007 Injection B12 To 500MG Kevin Kulkrani MD 09/25/2007 Injection B12 To 500MG Kevin Kulkarni MD 07/29/2007 Injection B12 To 500MG Kevin Kulkarni MD 07/01/2007 Injection B12 To 500MG Kevin Kulkarni MD 06/03/2007 Injection B12 To 500MG Kevin Kulkarni MD 04/29/2007 Injection B12 To 500MG Kevin Kulkarni MD 10/30/2005 Injection B12 To 500MG Kevin Kulkarni MD 03/09/2004 Injection Immunizations CPT Code Status Date Vaccine Lot # [id number] Given 08/29/2016 Td Preservative Free For Use In Individuals 7 Yrs Or a084a Older 54093 Given 04/26/2010 Influenza [place], [place] [address] Given 04/26/2009 Influenza [place] [address] Given 05/10/2008 Pneumovax 51368 Given 05/10/2008 Influenza [place], [place] [address] Given 05/13/2007 Influenza Virus [place] [address] Given 06/11/2006 Influenza Virus Vaccine, Split Virus, Im Vital Signs Date Vital Result Comment 06/26/2019 2:33pm Height 64 inches 5'4" Weight 103.00 lb BP Systolic 130 mmHg BP Diastolic 70 mmHg Heart Rate 76 /min BMI (Body Mass Index) 17.7 kg/m2 02/24/2019 2:18pm Height 64 inches 5'4" Weight 106.00 lb BP Systolic 117 mmHg BP Diastolic 68 mmHg Heart Rate 86 /min BMI (Body Mass Index) 18.2 kg/m2 Results Test Acquired Date Facility Test Result H/L Range Note CBC W/Auto 06[place] [facility] [place] Blood 6.0 10^3/uL Normal 3.5-10.8 Differential(! Count ) Red Blood Count 4.41 10^6/uL Normal 3.70-4.87 Hemoglobin 13.7 g/dL Normal 12.0-16.0 Hematocrit 41 % Normal 35-47 Mean Corpuscular Volume 92 fL Normal 80-97 Mean Corpuscular Hemoglobin 31 pg Normal 27-31 Mean Corpuscular HGB Conc 34 g/dL Normal 31-36 Red Cell Distribution Width 14 % Normal 10-15 Platelet Count 214 10^3/uL Normal 150-450 Mean Platelet Volume 8.1 fL Normal 7.4-10.4 Abs Neutrophils 3.5 10^3/uL Normal 1.5-7.7 Abs Lymphocytes 1.8 10^3/uL Normal 1.0-4.8 Abs Monocytes 0.6 10^3/uL Normal 0-0.8 Abs Eosinophils 0.1 10^3/uL Normal 0-0.6 Abs Basophils 0.1 10^3/uL Normal 0-0.2 Abs Nucleated RBC 0.0 10^3/uL Granulocyte % 58.2 % Lymphocyte % 30.2 % Monocyte % 9.4 % Eosinophil % 1.0 % Basophil % 1.2 % Nucleated Red Blood Cells % 0.0 CMP(!) 06/26/[place] [facility] [place] Sodium 138 mmol/L Normal 135-145 Potassium 3.4 mmol/L Low 3.5-5.0 Chloride 104 mmol/L Normal 101-111 Co2 Carbon Dioxide 26 mmol/L Normal 22-32 Anion Gap 8 mmol/L Normal 2-11 Glucose 115 mg/dL High 70-100 Blood Urea Nitrogen 10 mg/dL Normal 6-24 Creatinine 0.77 mg/dL Normal 0.51-0.95 BUN/Creatinine Ratio 13.0 Normal 8-20 Calcium 9.1 mg/dL Normal 8.6-10.3 Total Protein 7.1 g/dL Normal 6.4-8.9 Albumin 4.3 g/dL Normal 3.2-5.2 Globulin 2.8 g/dL Normal 2-4 Albumin/Globulin Ratio 1.5 Normal 1-3 Total Bilirubin 0.50 mg/dL Normal 0.2-1.0 Alkaline Phosphatase 82 U/L Normal 34-104 Alt 19 U/L Normal 7-52 Ast 12 U/L Low 13-39 Egfr Non- 75.0 >60 Egfr 90.8 >60 1 Laboratory test 06/26/2019 [facility] [place] Vitamin B12 > 1450 pg/mL High 180-914 2 finding Laboratory test 06/26/2019 [facility] [place] C Reactive Protein < 1.00 mg/L Normal < 8.01 finding Vitamin D Total 25(Oh) 27.2 ng/mL Normal 20-50 3 Laboratory test finding 03/03/2019 [facility] [place] Calprotectin 46.6 g/G 4, 5 1 Because ethnic data is not always [...] 5 Kidney failure <15 (or dialysis) 2 Normal Range 180 to 914 Indeterminate Range 145 to 180 Deficient Range <145 3 Total 25-Hydroxyvitamin D2 and D3 (25-OH-VitD) <10 ng/mL (severe deficiency) 10-19 ng/mL (mild to moderate deficiency) 20-50 ng/mL (optimum levels) 51-80 ng/mL (increased risk of hypercalciuria) >80 ng/mL (toxicity possible) 4 [id number] 5 REFERENCE VALUE <=50.0 (Normal) Test Performed by: [facility] [address] [place] [address] Procedures Date Code Description Status 05/29/2019 14749 Admin.Injection-Prophylactic Completed 04/30/2019 40479 Admin.Injection-Prophylactic Completed Medical Devices Description No Information Available Encounters Type Date Location Provider Dx Diagnosis Office Visit 02/24/2019 [facility] K50.818 Crohn's disease of 2:15p [facility], both small and lg int w ot complication R10.84 Generalized abdominal pain K21.9 Gastro-esophageal reflux disease without esophagitis Assessments Date Code Description Provider 06/26/2019 K50.818 Crohn's disease of both small and large Cass Lopez MD intestine with other complication 06/26/2019 K21.9 Gastro-esophageal reflux disease without Cass Lopez MD esophagitis 05/29/2019 K50.818 Crohn's disease of both small and large Cass Lopez MD intestine with other complication 04/30/2019 K50.818 Crohn's disease of both small and large Cass Lopez MD intestine with other complication 02/24/2019 K50.818 Crohn's disease of both small and large Cass Lopez MD intestine with other complication 02/24/2019 R10.84 Generalized abdominal pain Cass Kwan MD 02/24/2019 K21.9 Gastro-esophageal reflux disease without Cass Lopez MD esophagitis Plan of Treatment No Information Available Functional Status Description No Information Available Mental Status Description No Information Available Referrals Description No Information Available
--- OUTSIDE RECORDS SUMMARY | 2019-07-18 19:44 | XMS REPORT | Continuity of Care Document ---
:1955 External Reference #:[id number] Author Name Rosalina Haji NP (transmitted by agent of provider Marychuy Mccallum) Address [address] [facility], [place] [address] Care Team Providers Name Role Phone Chika Castillo M.D. - Family Medicine Care Team Information Block Placer Problems Active Problems Provider Date Carpal tunnel syndrome SALLY Valerio Onset: 01/12/2015 Cubital tunnel syndrome SALLY Valerio Onset: 01/12/2015 Arthritis SALLY Valerio Onset: 01/12/2015 Essential hypertension Chika Castillo MD Onset: 08/29/2018 Cachexia Chika Castillo MD Onset: 08/29/2018 Tobacco user Chika Castillo MD Onset: 08/29/2018 Colostomy present Chika Castillo MD Onset: 08/29/2018 Crohn's disease of small AND large intestines Chika Castillo MD Onset: 2018 Social History Type Date Description Comments Sex Unknown ETOH Use Denies alcohol use past heavy drinker Tobacco Use Start: Unknown Light tobacco smoker life long until her (10 or fewer stroke 07/22/18 cigarettes/day) Recreational Drug Use Current Drug User Medicinal Cannabis provided by friends - few times a daily Tobacco Use Start: Unknown End: Patient is a former smoker Smoking Status Reviewed: 05/26/19 Patient is a former smoker Exercise Type/Frequency Exercises regularly walks/ caring for her pets Allergies, Adverse Reactions, Alerts Active Allergies Reaction Severity Comments Date Aspirin Itching 12/09/2014 Azulfidine HAND SLITTER reaction - severe headache Severe 12/09/2014 Remicade Respiratory reaction Severe 12/09/2014 Tape/Silk Excoriation of underlying skin Severe 12/09/2014 Tetanus Immune Globulin 12/09/2014 Aspirin bleeding 08/29/2018 Medications Active Medications SIG Qnty Indications Ordering Date Provider Levofloxacin 1 by mouth every day 5tabs J18.9 Chika Castillo, 04/10/2019 500mg for 5 days MD Tablets Cyclobenzaprine HCL 1 tab 2x/day [facility] 5mg needed for muscle MD Tablets spasm Lomotil 1-2 tabs by mouth 2 60tabs K50.818 Chika Castillo, 02/27/2019 2.5-0.025mg x/day as needed for MD Tablets diarrhea C[facility] 1000mcg/ML intramuscular MD Solution injection once a month Atorvastatin Calcium 1 by mouth every day 30tabs I63.9 [facility] 2018 40mg at bedtime MD Tablets Azelastine HCL (Nasal) use 1 spray(s) twice 30ml J30.9 [facility] daily in each MD 0.15% Solution nostril as needed Atenolol 1 by mouth once a 30tabs R00.0 [facility] 11/26/2018 25mg Tablets day, as needed for MD rapid heart rate Gabapentin 1-3 tabs at bedtime 90caps G62.9 [facility] 10/17/2018 100mg Capsules as needed for leg MD pain Hemp Oil Capsules Unknown 5000MG Naltrexone Low Dose Unknown 4.5mg Powder CBD Capsule 15 MG 1 cap by mouth once Unknown daily Magnesium-Oxide 1 by mouth every day Unknown 400(241.3mg) mg Tablets Magnesium 1 by mouth every day Unknown 400mg Tablets Pantoprazole Sodium 1 by mouth every day 90tabs Chika Castillo, 40mg MD Tablets DR Calcium/Magnesium/Zinc Unknown /Vitamin D3 Vit D3 Tablets Ultralnflamx Plus 360 once per day Unknown Plavix 1 by mouth every day 90tabs Chika Castillo, 75mg Tablets Cetirizine HCL 1 by mouth every day Unknown 10mg Tablets Ranitidine HCL Take 1 Tablet By 60tabs Amarilys Van, 150mg Mouth Twice A Day. Tablets Amlodipine Besylate 1 by mouth every day 90tabs Chika Castillo, 10mg MD Tablets History Medications Vitamin Deficiency inject 1 milliliter 3units Chika Castillo MD 01/26/2019 - Injectable monthly 03/30/2019 System-B12 1000mcg/ML Kit Immunizations CPT Code Status Date Vaccine Reaction Lot # 59358 Given 04/27/2019 Pneumonia Vaccine No immediate reaction [id number] Vital Signs Date Vital Result Comment 05/26/2019 2:40pm Height 64 inches 5'4" Weight 107.00 lb Heart Rate 78 /min BP Systolic 114 mmHg BP Diastolic 67 mmHg Body Temperature 97.9 F O2 % BldC Oximetry 94 % BMI (Body Mass Index) 18.4 kg/m2 04/17/2019 10:48am Height 64 inches 5'4" Weight 105.00 lb Heart Rate 108 /min BP Systolic Sitting 140 mmHg Rue reg cuff BP Diastolic Sitting 86 mmHg Rue reg cuff Body Temperature 96.8 F O2 % BldC Oximetry 96 % BMI (Body Mass Index) 18.0 kg/m2 Results Test Acquired Date Facility Test Result H/L Range Note Lipid Profile 05/22/2019 [facility] Triglycerides 157 mg/dL 1 (Trig/Chol/HDL) [address] [place], [place] [id number] [phone] Cholesterol 110 mg/dL 2 HDL Cholesterol 38.8 mg/dL 3 LDL Cholesterol 40 mg/dL 4 Laboratory test 12/29/2018 [facility] Clotest SEE RESULT 5 , [address] [place], [place] [address] [phone] Laboratory test 12/29/2018 [facility] Surgical SEE RESULT 7 , [address] [place] [address] Order [phone] Laboratory test 11/27/2018 [facility] Troponin-I 0.01 ng/mL < 0.0 [address] (TnI) 4 [place], [place] [id number] [phone] Laboratory test 11/27/2018 [facility] Lactic Acid 0.7 mmol/L Normal 0.5- [address] 2[address]0 [place] [address] [phone] CKMB 11/27/2018 [facility] CKMB ng/mL 8.1 ng/mL High 0.6- [address] 6[address]3 [place] [address] [phone] Laboratory test 11/27/2018 [facility] Magnesium 1.8 mg/dL Low 1.9- finding [address] 2[address]7 [place] [address] [phone] Lipase 104 U/L High 11.0-82.0 Troponin-I (TnI) 0.01 ng/mL <0.04 11 Comp Metabolic 11/27/2018 [facility] Sodium 136 mmol/L Normal 135-[address] [place] [address] [phone] Potassium 4.1 mmol/L Normal 3.5-5.0 Chloride 104 mmol/L Normal 101-111 Co2 Carbon Dioxide 25 mmol/L Normal 22-32 Anion Gap 7 mmol/L Normal 2-11 Glucose 102 mg/dL High 70-100 Blood Urea Nitrogen 22 mg/dL Normal 6-24 Creatinine 0.74 mg/dL Normal 0.51-0.95 BUN/Creatinine Ratio 29.7 High 8-20 Calcium 9.6 mg/dL Normal 8.6-10.3 Total Protein 7.9 g/dL Normal 6.4-8.9 Albumin 4.6 g/dL Normal 3.2-5.2 Globulin 3.3 g/dL Normal 2-4 Albumin/Globulin Ratio 1.4 Normal 1-3 Total Bilirubin 0.80 mg/dL Normal 0.2-1.0 Alkaline Phosphatase 72 U/L Normal 34-104 Alt 21 U/L Normal 7-52 Ast 25 U/L Normal 13-39 Egfr Non- 78.8 >60 Egfr 95.3 >60 12 Laboratory test 11/27/2018 [facility] Partial 25.6 seconds Low 26.0-36.[address] [place] [address] PTT [phone] D Dimer Quantitative 217 ng/mL Normal Less Than 230 13 B-Type Natriuretic Peptide BNP 12 pg/mL <=100 Inr/Protime 11/27/2018 [facility] Inr 0.92 Normal 0.82-1.[address] [place] [address] [phone] CBC Auto Diff 11/27/2018 [facility] White Blood 7.1 Normal 3.5 -10.[address] Count 10^3/[place] [address] [phone] Red Blood Count 4.44 10^6/uL Normal 3.70-4.87 Hemoglobin 14.2 g/dL Normal 12.0-16.0 Hematocrit 42 % Normal 35-47 Mean Corpuscular Volume 94 fL Normal 80-97 Mean Corpuscular Hemoglobin 32 pg High 27-31 Mean Corpuscular HGB Conc 34 g/dL Normal 31-36 Red Cell Distribution Width 13 % Normal 10.5-15 Platelet Count 204 10^3/uL Normal 150-450 Mean Platelet Volume 7.0 fL Low 7.4-10.4 Abs Neutrophils 4.1 10^3/uL Normal 1.5-7.7 Abs Lymphocytes 2.2 10^3/uL Normal 1.0-4.8 Abs Monocytes 0.7 10^3/uL Normal 0-0.8 Abs Eosinophils 0.1 10^3/uL Normal 0-0.6 Abs Basophils 0.0 10^3/uL Normal 0-0.2 Abs Nucleated RBC 0.0 10^3/uL Granulocyte % 57.6 % Lymphocyte % 31.2 % Monocyte % 9.5 % Eosinophil % 1.0 % Basophil % 0.7 % Nucleated Red Blood Cells % 0.0 Comp Metabolic 11/24/2018 [facility] Sodium 136 mmol/L Normal 135-[address] [place] [address] [phone] Potassium 3.1 mmol/L Low 3.5-5.0 Chloride 102 mmol/L Normal 101-111 Co2 Carbon Dioxide 24 mmol/L Normal 22-32 Anion Gap 10 mmol/L Normal 2-11 Glucose 117 mg/dL High 70-100 Blood Urea Nitrogen 9 mg/dL Normal 6-24 Creatinine 0.63 mg/dL Normal 0.51-0.95 BUN/Creatinine Ratio 14.3 Normal 8-20 Calcium 10.0 mg/dL Normal 8.6-10.3 Total Protein 8.4 g/dL Normal 6.4-8.9 Albumin 4.8 g/dL Normal 3.2-5.2 Globulin 3.6 g/dL Normal 2-4 Albumin/Globulin Ratio 1.3 Normal 1-3 Total Bilirubin 0.50 mg/dL Normal 0.2-1.0 Alkaline Phosphatase 64 U/L Normal 34-104 Alt 16 U/L Normal 7-52 Ast 22 U/L Normal 13-39 Egfr Non- 94.8 >60 Egfr 114.8 >60 15 Laboratory test 11/24/2018 [facility] Troponin-I (TnI) 0.01 ng/ mL <0.04 [address] [place] [address] [phone] Alcohol < 10 mg/dL Normal <10 Inr/Protime 11/24/2018 [facility] Inr 0.93 Normal 0.82-1.[address] [place] [address] [phone] Laboratory test 11/24/2018 [facility] Lactic Acid 1.1 Normal 0.5-2.0 [address] mmol/[place] [address] [phone] CBC Auto Diff 11/24/2018 [facility] White Blood 11.9 High 3.5- 10.[address] Count 10^3/[place] [address] [phone] Red Blood Count 4.76 10^6/uL Normal 3.70-4.87 Hemoglobin 15.3 g/dL Normal 12.0-16.0 Hematocrit 44 % Normal 35-47 Mean Corpuscular Volume 93 fL Normal 80-97 Mean Corpuscular Hemoglobin 32 pg High 27-31 Mean Corpuscular HGB Conc 35 g/dL Normal 31-36 Red Cell Distribution Width 13 % Normal 10.5-15 Platelet Count 213 10^3/uL Normal 150-450 Mean Platelet Volume 7.1 fL Low 7.4-10.4 Abs Neutrophils 8.9 10^3/uL High 1.5-7.7 Abs Lymphocytes 2.3 10^3/uL Normal 1.0-4.8 Abs Monocytes 0.5 10^3/uL Normal 0-0.8 Abs Eosinophils 0.0 10^3/uL Normal 0-0.6 Abs Basophils 0.1 10^3/uL Normal 0-0.2 Abs Nucleated RBC 0.0 10^3/uL Granulocyte % 75.2 % Lymphocyte % 19.6 % Monocyte % 4.2 % Eosinophil % 0.0 % Basophil % 1.0 % Nucleated Red Blood Cells % 0.1 Laboratory 11/24/2018 [facility] Hemoglobin A1c 5.5 % Normal 4.0-5.6 19 test finding [address] (Glyco HGB) [place] [address] [phone] Urine Drug 11/24/2018 [facility] Urine None None [facility] [address] Amphetamine [place] [address] Screen [phone] Urine Barbiturates Screen None Detected None Detect Urine Benzodiazepine Screen None Detected None Detect Urine Cannabinoids Screen Presumptive Posi <SEE NOTE> Abnormal None Detect 20 Urine Cocaine Screen None Detected None Detect Urine Opiates Screen Presumptive Posi <SEE NOTE> Abnormal None Detect 21 Urine Phencyclidine Screen None Detected None Detect 22 Urinalysis Profile 11/24/2018 [facility] Urine Color Yellow [address] [place] [address] [phone] Urine Appearance Cloudy Urine Specific [place] 1.038 High 1.010-1.030 Urine pH 5.0 Normal 5-9 Urine Urobilinogen Negative Negative Urine Ketones [...] Present Abnormal Absent Urine Culture And 11/24/2018 [facility] Urine Culture SEE RESULT [address] [place] [address] [phone] Desirable: <150 Borderline High: 150-199 High: 200-499 Very High: >500 2 Desirable: <200 Borderline High: 200-239 High: >239 3 Low: <40 Desirable: 40-60 High: >60 4 Desirable: <100 Near Optimal: 100-129 Borderline High: 130-159 High: 160-189 Very High: >189 5 [id number] SEE RESULT BELOW Name: SASHA BURNETTE : [address]: Cass Kwan MD Acct: [id number] Unit: [id number] AGE: 63 Location: [facility] Re12/29/18 SEX: F Status: DEP REF SPEC: [id number] NEVAEH: 12/29/[address]: Cass Lopez MD REQ: [id number] RECD: 12/29/18 STATUS: FABIOLA OTERO DR: Chika Castillo MD _ SOURCE: GAS ANTRUM SPDESC: ORDERED: Clotest COMMENTS: [id number] Procedure Result Reported Site Clotest Final 12/30/18- 717 ML Clotest Negative * ML - Main Lab . END OF REPORT DEPARTMENT OF PATHOLOGY, [address] [place] [address] Donnie Najera M.D. Director [facility] # [id number] SEE RESULT BELOW Name: SASHA BURNETTE : [address]: Cass Kwan MD Acct: [id number] Unit: [id number] AGE: 63 Location: [facility] Re12/29/18 SEX: F Status: DEP REF SPEC: [id number] NEVAEH: 12/29/[address] [facility] [address]: Cass Lopez MD REQ: [id number] RECD: 12/29/18 STATUS: UTE OTERO DR: Chika Castillo MD _ ORDERED: LEVEL 4/5, IMMUNO-FIRST, SPEC STAIN ORG/2 COMMENTS: [id number] ADDENDUM Addendum: An immunohistochemical stain for Helicobacter [...] CONTINUED ON NEXT PAGE DEPARTMENT OF PATHOLOGY, [address] [place] [address] Donnie Najera M.D. Director [facility] # [id number] RUN DATE: 12/31/18 [facility] LAB LIVE PAGE 2 Patient: SASHA BURNETTE [id number] (Continued) FINAL DIAGNOSIS (Continued) nonspecific reactive changes. [...] CONTINUED ON NEXT PAGE DEPARTMENT OF PATHOLOGY, [address] [place] [address] Donnie Najera M.D. Director [facility] # [id number] RUN DATE: 12/31/18 [facility] LAB LIVE PAGE 3 Patient: SASHA BURNETTE [id number] (Continued) GROSS DESCRIPTION (Continued) clot. Entirely submitted, [...] and Reported on: Donnie Najera MD 07/09 0054 END OF REPORT DEPARTMENT OF PATHOLOGY, [address] [place] [address] Donnie Najera M.D. Director [facility] # [id number] 9 Troponin-I testing on Plasma Separator Tubes (PST) has a known false positive rate of 0.20-0.40%. All positive troponins reflex immediately to secondary confirmatory testing. Using the UnicSynqera DxI 800 Access Immunoassay systems, the 99th percentile upper reference limit was demonstrated to be < 0.03 ng/mL. 10 [facility] Severe Sepsis and Septic Shock Management Bundle Measure requires all lactic acids initially measuring >2.0 mmol/L be repeated. 11 Troponin-I testing on Plasma Separator Tubes (PST) has a known false positive rate of 0.20-0.40%. All positive troponins reflex immediately to secondary confirmatory testing. Using the Unicel DxI 800 Access Immunoassay systems, the 99th percentile upper reference limit was demonstrated to be < 0.03 ng/mL. 12 Because ethnic data is not always readily [...] 15-29 5 Kidney failure <15 (or dialysis) 13 Please note: The following may produce a false positive D Dimer test: - Rheumatoid factor greater than 60 IU/ml - Plasma hemoglobin greater than 0.05 gm/dl - Bilirubin greater than 50 mg/dl - Lipids greater than 1000 mg/dl - FDP greater than 20 ug/ml 14 Standard intensity warfarin therapeutic range: 2.0-3.0 High intensity warfarin therapeutic range: 2.5-3.5 15 Because ethnic data is not always readily [...] 15-29 5 Kidney failure <15 (or dialysis) 16 Troponin-I testing on Plasma Separator Tubes (PST) has a known false positive rate of 0.20-0.40%. All positive troponins reflex immediately to secondary confirmatory testing. Using the UnicSynqera DxI 800 Access Immunoassay systems, the 99th percentile upper reference limit was demonstrated to be < 0.03 ng/mL. 17 Standard intensity warfarin therapeutic range: 2.0-3.0 High intensity warfarin therapeutic range: 2.5-3.5 18 [facility] Severe Sepsis and Septic Shock Management Bundle Measure requires all lactic acids initially measuring >2.0 mmol/L be repeated. 19 Therapeutic target for the treatment of diabetes mellitus patients is <7% HBA1C, and in selective patients <6.0%. Please refer to [place] [employer] diabetic care guidelines for further information. 20 Presumptive Positive Presumptive positive results are unconfirmed. 21 Presumptive Positive Presumptive positive results are unconfirmed. 22 The urine specimen was tested at the listed cutoffs: Drug class test level (ng/mL) Amphetamines 500 Barbiturates 200 Benzodiazepine metabolites 200 Cocaine metabolites 150 Cannabinoids 50 Opiates 300 Pcp 25 Specimen was received without chain of custody. Results should be used for medical purposes only. 23 SEE RESULT BELOW Name: SASHA BURNETTE : [address]: Linda Quevedo MD Acct: [id number] Unit: [id number] AGE: 63 Location: [place] [address] Re11/25/18 Dis: 11/25/18 SEX: F Status: DIS Kamar SPEC: [id number] NEVAEH: 11/25/18-[address] [facility] [address]: Chadwick Keating MD REQ: [id number] RECD: 11/25/18 STATUS: COMP OTHR DR: Chika Castillo MD _ SOURCE: URINE SPDESC: ORDERED: Urine Culture Procedure Result Reported Site Urine Culture Final 11/26/18- 1536 ML No growth of clinically significant organisms * ML - Main Lab . END OF REPORT DEPARTMENT OF PATHOLOGY, [address] [place] [address] Donnie Najera M.D. Director [facility] # [id number] Procedures Date Code Description Status 04/10/2019 98950 Implantable Cardio System Loop Recorder Sys Remota Data Completed Ac[facility] 04/10/2019 64580 Interrogation Dev Loop Recorder Incl Physician Completed Analysis,Rev,Repor 03/10/2019 75343 Implantable Cardio System Loop Recorder Sys Remota Data Completed [facility] 03/10/2019 82642 Interrogation Dev Loop Recorder Incl Physician Completed Analysis,Rev,Repor 03/03/2019 [id number] Mammogram Completed 02/07/2019 35884 Implantable Cardio System Loop Recorder Sys Remota Data Completed [facility] 02/07/2019 79370 Interrogation Dev Loop Recorder Incl Physician Completed Analysis,Rev,Repor 01/06/2019 69328 Insertion, Subcutaneous Cardiac Rhythm Monitor Completed 12/31/2018 44351 EKG Tracing & Interpretation Completed 11/28/2018 16002 Treadmill Interp/Report Only Completed 11/28/2018 00255 Stress Test Supervsn W/Out I/R Completed 09/17/2016 [id number] Mammogram Completed 02/25/2013 [id number] Colonoscopy Completed Medical Devices Description No Information Available Encounters Type Date Location Provider Dx Diagnosis Office Visit 04/17/2019 [facility] Chika Castillo MD J18.9 Pneumonia, 10:40a Medicine - [facility] unspecified organism Office Visit 04/10/2019 [facility] Chika Castillo MD J18.9 Pneumonia, 2:40p Medicine - [facility] unspecified organism M54.12 Radiculopathy, cervical region Office Visit 03/31/2019 [facility] K50.818 Crohn's disease of 2:30p [facility] Adithya, GRAIN SPOUTER both small and lg int w oth complication Office Visit 02/27/2019 [facility] Internal Chika Castillo MD S20.211D Contusion of right 2:20p Medicine - front wall of [facility] thorax, subs encntr S93.402D Sprain of unspecified ligament of left ankle, subs encntr K50.818 Crohn's disease of both small and lg int w oth complication Office Visit 02/11/2019 2:30p [facility] Adithya, G89.29 Other chronic [facility] GRAIN [employer]OUTER pain K50.818 Crohn's disease of both small and lg int w oth complication Office Visit 01/23/2019 4:00p [facility] Internal Chika Castillo, R00.0 Tachycardia , Medicine - MD unspecified Ccmob I10 Essential (primary) hypertension Z12.31 Encntr screen mammogram for malignant neoplasm of breast Office Visit 01/13/2019 1:45p [facility] Brandon Sr I63.9 Cerebral Of [facility] Meghan Ly infarction, unspecified Z95.818 Presence of other cardiac implants and grafts Z86.73 Prsnl hx of TIA (TIA), and cereb infrc w/o resid deficits Office Visit 12/31/2018 1:00p [facility] Brandon Sr I63.9 Cerebral Of Kaila Ly M.D. infarction, unspecified Z86.73 Prsnl hx of TIA (TIA), and cereb infrc w/o resid deficits R94.31 Abnormal electrocardiogram [ECG] [EKG] Office Visit 12/24/2018 Luh Patino, K50.818 Crohn's disease of 1:00p Neurologic MD both small and lg Services [facility] int w oth complication Z86.73 Prsnl hx of TIA (TIA), and cereb infrc w/o resid deficits [facility] R53.83 Other fatigue [facility] G[employer]TER K50.818 Crohn's disease of both small and lg int w oth complication K21.9 Gastro-esophageal reflux disease without esophagitis Office Visit 11/28/2018 8:35a [facility] Neal Haro R07.89 Other chest Assoc,pc MD Bear pain Hospitalists I63.9 Cerebral infarction, unspecified Office Visit 11/27/2018 8:34a [facility] Brittaney Pettit R07.89 Other chest Assoc,pc Meghan pain Hospitalists R53.1 Weakness K50.90 Crohn's disease, unspecified, without complications Office Visit 11/26/2018 3:40p [facility] Chika Castillo I63.9 Cerebral Medicine - [facility] infarction, unspecified J30.9 Allergic rhinitis, unspecified R00.0 Tachycardia, unspecified Office 11/25/2018 [facility] Dimitrios I63.511 Cereb infrc d/t Visit 7:00a Clinic MD Sukumar unsp occls or stenos of right mid cereb art Office 11/25/2018 [facility] Lorraine K50.90 Crohn's disease, Visit 8:57a Assoc,pc Hospitalists Fanny, GRAIN SPOUTER unspecified, without complications Z86.73 Prsnl hx of TIA (TIA), and cereb infrc w/o resid deficits R51 Headache Z72.0 Tobacco use Office Visit 11/24/2018 [facility] Joslyn K50.90 Crohn's disease, 8:56a Assoc,pc Root, DO unspecified, Hospitalists without complications R51 Headache Assessments Date Code Description Provider 05/26/2019 K50.818 Crohn's disease of both small and Rosalina Haji NP large intestine with other 05/26/2019 G89.29 Other chronic pain Rosalina Haji NP 04/27/2019 Z23 Encounter for immunization Nurse Visit A 04/17/2019 J18.9 Pneumonia, unspecified organism Chika Castillo MD 04/10/2019 Z86.73 Personal history of transient Brandon Ly M.D. ischemic attack (TIA), and cer 04/10/2019 J18.9 Pneumonia, unspecified organism Chika Castillo MD 04/10/2019 Z95.818 Presence of other cardiac implants Brandon Ly M.D. and grafts 04/10/2019 M54.12 Radiculopathy, cervical region Chika Castillo MD 03/31/2019 K50.818 Crohn's disease of both small and Rosalina Liaoch, GRAIN SPOUTER large intestine with other 03/10/2019 Z86.73 Personal history of transient Brandon Ly M.D. ischemic attack (TIA), and cer 03/10/2019 Z95.818 Presence of other cardiac implants Brandon Ly M.D. and grafts 02/27/2019 S20.211D Contusion of right front wall of Chika Castillo MD thorax, subsequent encounter 02/27/2019 S93.402D Sprain of unspecified ligament of Chika Castillo MD left ankle, subsequent encounter 02/27/2019 K50.818 Crohn's disease of both small and Chika Castillo MD large intestine with other 02/11/2019 G89.29 Other chronic pain Rosalina Haji, GRAIN SPOUTER 02/11/2019 K50.818 Crohn's disease of both small and Rosalina Haji, GRAIN SPOUTER large intestine with other 02/07/2019 Z86.73 Personal history of transient Brandon Ly M.D. ischemic attack (TIA), and cer 02/07/2019 Z95.818 Presence of other cardiac implants Brandon Ly M.D. and grafts 01/23/2019 R00.0 Tachycardia, unspecified Chika Castillo MD 01/23/2019 I10 Essential (primary) hypertension Chika Castillo MD 01/23/2019 Z12.31 Encounter for screening mammogram for Chika Castillo MD malignant neoplasm of 01/13/2019 I63.9 Cerebral infarction, unspecified Brandon Ly M.D. 01/13/2019 Z95.818 Presence of other cardiac implants Brandon Ly M.D. and grafts 01/13/2019 Z86.73 Personal history of transient Brandon Ly M.D. ischemic attack (TIA), and cer 01/06/2019 Z86.73 Personal history of transient Brandon Ly M.D. ischemic attack (TIA), and cer 12/31/2018 I63.9 Cerebral infarction, unspecified Brandon Ly M.D. 12/31/2018 Z86.73 Personal history of transient Brandon Ly M.D. ischemic attack (TIA), and cer 12/31/2018 R94.31 Abnormal electrocardiogram [ECG] Brandon Ly M.D. [EKG] 12/24/2018 K50.818 Crohn's disease of both small and Dimitrios Patino MD large intestine with other 12/24/2018 Z86.73 Personal history of transient Dimitrios Patino MD ischemic attack (TIA), and cer 12/11/2018 R53.83 Other fatigue Rosalina Haji NP 12/11/2018 K50.818 Crohn's disease of both small and Rosalina Haji NP large intestine with other 12/11/2018 K21.9 Gastro-esophageal reflux disease Rosalina Haji NP without esophagitis 11/28/2018 R07.9 Chest pain, unspecified Flako Jung M.D., [facility] 11/28/2018 R07.89 Other chest pain Neal Sifuentes MD 11/28/2018 I63.9 Cerebral infarction, unspecified Neal Sifuentes MD 11/27/2018 R07.89 Other chest pain Brittaney Pettit M.D. 11/27/2018 R53.1 Weakness Brittaney Pettit M.D. 11/27/2018 K50.90 Crohn's disease, unspecified, without Brittaney Pettit M.D. complications 11/26/2018 I63.9 Cerebral infarction, unspecified Chika Castillo MD 11/26/2018 J30.9 Allergic rhinitis, unspecified Chika Castillo MD 11/26/2018 R00.0 Tachycardia, unspecified Chika Castillo MD 11/25/2018 I63.511 Cereb infrc d/t unsp occls or stenos Dimitrios Patino MD of right mid cereb art 11/25/2018 K50.90 Crohn's disease, unspecified, without Lorraine Escobedo NP complications 11/25/2018 Z86.73 Prsnl hx of TIA (TIA), and cereb Lorraine Shortle, [employer] infrc w/o resid deficits 11/25/2018 R51 Headache Lorraine Escobedo NP 11/25/2018 Z72.0 Tobacco use Lorraine Escobedo NP 11/24/2018 K50.90 Crohn's disease, unspecified, without Joslyndaily Lara, DO complications 11/24/2018 R51 Headache Joslyn Marco, DO Plan of Treatment Future Appointment(s):07/27/2019 2:00 pm - Rosalina Haji NP at [facility]08/12/2019 2:45 pm - Dimitrios Patino MD at [facility]05/26/2019 - Rosalina Haji, [id number] Crohn's disease of both small and large intestine with otherFollow up:follow up in 8 weeksRecommendations:Continue LDN 4.5 mg at bedtime Continue Metagenic shake Continue CBD capsules - ok to go up on the eojmnnQ15.29 Other chronic painRecommendations:continue the above Continue Magnesium Functional Status Description No Information Available Mental Status Description No Information Available Referrals Refer to Reason for Referral Status Appt Date Nely Oswald MD pt with recurrent CVAs, referred for evaluation Sent 12/31 of possible cardioembolic origin [address] [place] [address] [phone]
[2019-07-18 20:05] VITALS: BP 150/68
--- NOTE | 2019-07-18 20:23 | UC ---
Lower Extremity/Ankle HPI - HPI Summary HPI Summary: patient lives alone she slipped and fell on a small snow covered slope yesterday landing on right first and knee---she was able to get herself up knee wrist and hip with some discomfort but usual range of motion n/m/c intact gait wnl - History of Current Complaint Chief Complaint: UCLowerExtremity Stated Complaint: LEG INJURY Time Seen by Provider: 07/18/19 20:14 Hx Obtained From: Patient Hx Last Menstrual Period: post ?: No Onset/Duration: Sudden Onset, Lasting Days - 1, Still Present Pain Intensity: 6 - refused pain med-- Pain Scale Used: 0-10 Numeric Aggravating Factor(s): Nothing Alleviating Factor(s): Rest Able to Bear Weight: Yes - Allergies/Home Medications Allergies/Adverse Reactions: Allergies Allergy/AdvReac Type Severity Reaction Status Date / Time infliximab [From Remicade] Allergy Severe Tachycardia Verified 07/18/19 20:05 adhesive tape Allergy Unknown Rash And Verified 07/18/19 20:05 Itching paroxetine [From Paxil] Allergy Unknown Verified 07/18/19 20:05 Reaction Details Tetanus Vaccines and Toxoid Allergy Swelling Verified 07/18/19 20:05 aspirin AdvReac Bleeding Verified 07/18/19 20:05 sulfasalazine AdvReac Headache Verified 07/18/19 20:05 [From Azulfidine] adhesive tapes (plastic) Allergy Intermediate Rash And Uncoded 07/18/19 20:05 Itching PMH/Surg Hx/FS Hx/Imm Hx Previously Healthy: No Endocrine History: Dyslipidemia Cardiovascular History: Hypertension GI/ History: Other Other GI/ History: Crohns - Surgical History Surgical History: Yes Surgery Procedure, Year, and Place: BILAT THR [facility], W/ REVISIONS OF BOTH 2011 [facility]. 1990 C-4,5,6,7 FUSION X3 [facility]. RECTUM REMOVED [facility]---. CATARACTS BILAL EYES. CHOLECYSTECTOMY. SEVERAL SMALL BOWEL EXCISIONS W/ COLOSTOMY [facility]. YOUNG CHILD FX OF RIGHT CLAVICLE. 01/2015 RT HAND/ LEFT HAND AND ELBOWS CARPAL TUNNEL RELEASE,ULNAR NERVE. DECOMPRESSION [facility]. RIGHT ROTATOR CUFF RESURFACED. -implanted continuous cardiac loop monitor 2018. -right and left total hip replacements and subsequent revisions - Family History Known Family History: Positive: Cardiac Disease - CHF (mother) Family History: FHx of breast cancer - Social History Occupation: Disabled Lives: Alone Alcohol Use: None Substance Use Type: Marijuana Substance Use Comment - Amount & Last Used: medical marijuana Smoking Status (MU): Former Smoker Type: Cigarettes Amount Used/How Often: 1PPEVERY 2 WEEKS, WAS 1PPD 1975..RECENTLY TRYING TO STOP Length of Time of Smoking/Using Tobacco: 30+ YEARS Have You Smoked in the Last Year: Yes When Did the Patient Quit Smoking/Using Tobacco: 07/22/2018 Household Exposure Type: Cigarettes - Immunization History Most Recent Influenza Vaccination: 2018 Most Recent Pneumonia Vaccination: unsure but has had it Review of Systems All Other Systems Reviewed And Are Negative: Yes Constitutional: Positive: Negative Skin: Positive: Negative Eyes: Positive: Negative ENT: Positive: Negative Respiratory: Positive: Negative Cardiovascular: Positive: Negative Gastrointestinal: Positive: Negative Genitourinary: Positive: Negative Motor: Positive: Negative Neurovascular: Positive: Negative Musculoskeletal: Positive: Arthralgia - right wrist , knee and hip Neurological: Positive: Negative Psychological: Positive: Negative Is Patient Immunocompromised?: No Physical Exam Triage Information Reviewed: Yes Appearance: Well-Appearing - older than stated age, No Pain Distress, Thin Vital Signs: Initial Vital Signs Temp 98 F 07/18/19 20:00 Pulse 75 07/18/19 20:00 Resp 17 07/18/19 20:00 BP 150/68 07/18/19 20:00 Pulse Ox 95 07/18/19 20:00 Vital Signs Reviewed: Yes Eye Exam: Normal Eyes: Positive: Conjunctiva Clear ENT Exam: Normal ENT: Positive: Normal ENT inspection, Hearing grossly normal. Negative: Nasal congestion, Trismus, Muffled voice, Hoarse voice, Sinus tenderness Neck exam: Normal Neck: Positive: Supple, Nontender, No Lymphadenopathy Respiratory Exam: Normal Respiratory: Positive: Chest non-tender, Lungs clear, Normal breath sounds, No respiratory distress, No accessory muscle use Cardiovascular Exam: Normal Cardiovascular: Positive: RRR, No Murmur, Pulses Normal, Brisk Capillary Refill Abdominal Exam: Normal Abdomen Description: Positive: Nontender, No Organomegaly, Soft Musculoskeletal Exam: Normal Musculoskeletal: Positive: Strength Intact, ROM Intact, No Edema Neurological Exam: Normal Neurological: Positive: Alert, Muscle Tone Normal Psychological Exam: Normal Skin Exam: Normal Diagnostics - Radiology No standard instances Radiology Interpretation Completed By: ED Physician - no evidence of acute pathology Lower Extremity Course/Dx - Course Course Of Treatment: ice, patient prefers marajuana for pain management follow with pcp in 2-7 days - Differential Dx/Diagnosis Provider Diagnosis: Contusion, Hypertension Discharge ED - Sign-Out/Discharge Documenting (check all that apply): Patient Departure All imaging exams completed and their final reports reviewed: No - Discharge Plan Condition: Stable Disposition: HOME Patient Education Materials: Fall Prevention for Older Adults (ED), Contusion in Adults (ED), Hypertension (ED), R.I.C.E. Treatment (ED) Referrals: Chika Castillo MD [Primary Care Provider] - 3 Days - Billing Disposition and Condition Condition: STABLE Disposition: Home
--- NOTE | 2019-07-19 11:21 | UC ---
- Progress Note Progress Note: Final radiologist reading of right wrist right hip and right knee x-rays from July 18, 2019 comes back as no fracture. Provider interpretation the same it is same therefore there is no discrepancy. Course/Dx - Diagnoses Provider Diagnoses: Contusion, Hypertension Discharge ED - Sign-Out/Discharge Documenting (check all that apply): Patient Departure All imaging exams completed and their final reports reviewed: Yes - Discharge Plan Condition: Stable Disposition: HOME Patient Education Materials: Fall Prevention for Older Adults (ED), Contusion in Adults (ED), Hypertension (ED), R.I.C.E. Treatment (ED) Referrals: Chika Castillo MD [Primary Care Provider] - 3 Days - Billing Disposition and Condition Condition: STABLE Disposition: Home
== END 2019-07-18 21:09 | disposition home or self-care (01) ==
LOC: UCEAST 19:39
DX: S60.211A Contusion of right wrist, initial encounter (principal); S80.01XA Contusion of right knee, initial encounter; S70.01XA Contusion of right hip, initial encounter; I10 Essential (primary) hypertension; Z88.2 Allergy status to sulfonamides; Z88.6 Allergy status to analgesic agent; Z88.7 Allergy status to serum and vaccine; Z88.8 Allergy status to other drugs, medicaments and biological substances; Z91.09 Other allergy status, other than to drugs and biological substances; Z87.891 Personal history of nicotine dependence; W00.0XXA Fall on same level due to ice and snow, initial encounter; Y92.9 Unspecified place or not applicable
CPT/HCPCS: 99211; G0463

== ENCOUNTER 2023-10-23 13:41 | Inpatient (IN) ==
[2023-10-23] MEDS ORDERED: Ondansetron 4 mg VIAL 2 MG/ML 2 ml VIAL ONE (14:03)
[2023-10-23] MEDS: Ondansetron 4 mg VIAL 2 MG/ML 2 ml VIAL IV ONE (14:09)
[2023-10-23 14:18] LABS: ABS Lymphocytes 1.6 10^3/uL (1.0-4.8); ABS Monocytes 1.3 10^3/uL (0.0-0.9); ABS Neutrophils 14.3 10^3/uL (1.5-7.6); ABS Nucleated RBC 0.02 10^3/ul; Hematocrit 47.5 % (35-45); Hemoglobin 14.9 g/dL (11.5-14.3); INR 0.98 (0.83-1.13); Lymphocyte % 9.1 %; Mean Corpuscular Hemoglobin 32.1 pg (27-33); Mean Corpuscular Hgb Conc 31.4 g/dL (31-36); Mean Corpuscular Volume 102.2 fL (80-97); Mean Platelet Volume 7.7 fL (7.5-11.2); Nucleated Red Blood Cells % 0.1 %/100WBC (0.0-0.8); Platelet Count 286 10^3/uL (150-450); Red Blood Count 4.65 10^6/uL (3.63-4.92); Red Cell Distribution Width 14.8 % (12-17); White Blood Count 17.2 10^3/uL (3.8-11.8)
[2023-10-23] MEDS ORDERED: Iohexol 350 (CONTRAST) 200 ML MDV IV ONE (14:21)
[2023-10-23] MEDS ORDERED: Bivalirudin 250 MG VIAL ONE (14:26)
[2023-10-23 14:29] LABS: High Sens Troponin Baseline 4565 pg/mL (<15)
[2023-10-23 14:31] LABS: ALT 27 U/L (7-52); Albumin 4.2 g/dL (3.2-5.2); Albumin/Globulin Ratio 1.4 (1-3); Alkaline Phosphatase 60 U/L (35-149); Blood Urea Nitrogen 16 mg/dL (6-24); Calcium 9.3 mg/dL (8.6-10.3); Chloride 101 mmol/L (101-111); Creatinine, Serum 1.12 mg/dL (0.51-0.95); Globulin 3.1 g/dL (2-4); Glucose 278 mg/dL (70-100); Sodium 135 mmol/L (135-145); Total Bilirubin 0.7 mg/dL (0.2-1.0); Total Protein 7.3 g/dL (6.4-8.9); eGFR CKD-EPI 52.9 (>60)
[2023-10-23 14:34] LABS: Anion Gap 24 mmol/L (2-16); CO2 Carbon Dioxide 10 mmol/L (22-32)
[2023-10-23] MEDS ORDERED: Iohexol 350 (CONTRAST) 100 ML PAK IV ONE (14:37)
[2023-10-23] MEDS ORDERED: Heparin 2 UNITS/ML 1000 mls 0 ML IV ONE (14:47)
[2023-10-23] MEDS ORDERED: Heparin DRIP 25,000 UNITS BAG 25,000 UNITS/250 ML BAG IV ONE (14:48)
[2023-10-23] MEDS ORDERED: Lidocaine 1% MPF 5 ML VIAL ONE (15:10)
[2023-10-23 15:47] LABS: POC SO2 93 %
[2023-10-23 15:47] LABS: POC SO2 43 %
[2023-10-23] MEDS ORDERED: fentaNYL 100 mcg/2 ml 50 MCG/ML VIAL ONE (16:51)
[2023-10-23] MEDS: Acetaminophen IV 1 GM/100ML 600 MG/60 ML BAG IV ONE (16:55)
[2023-10-23] MEDS: Morphine 2 MG/ML SYRINGE IV ONE (16:58)
[2023-10-23] MEDS: Acetaminophen IV 1 GM/100ML 1,000 MG/100 ML BAG IV ONE ×2 (16:59→19:18)
[2023-10-23] MEDS: fentaNYL 100 mcg/2 ml 50 MCG/ML VIAL IV SLOW PU ONE (17:12)
[2023-10-23 17:51] LABS: Hematocrit 40.7 % (35-45); Mean Corpuscular Hemoglobin 31.4 pg (27-33); Mean Corpuscular Volume 98.1 fL (80-97); Mean Platelet Volume 7.9 fL (7.5-11.2); Platelet Count 232 10^3/uL (150-450); Red Blood Count 4.14 10^6/uL (3.63-4.92); Red Cell Distribution Width 13.9 % (12-17); White Blood Count 23.2 10^3/uL (3.8-11.8)
[2023-10-23] MEDS: Norepinephrine 4 MG/250mL D5W 4,000 MCG/250 ML BAG IV SCH (18:00)
[2023-10-23] MEDS: Rocuronium 50 mg VIAL 10 mg/ml 5 ml VIAL (50 mg) ONE (18:06)
[2023-10-23 18:24] LABS: ABS Lymphocytes 1.5 10^3/uL (1.0-4.8); ABS Monocytes 2.9 10^3/uL (0.0-0.9); ABS Neutrophils 18.8 10^3/uL (1.5-7.6); ABS Nucleated RBC 0.02 10^3/ul; Lymphocyte % 6.5 %; Nucleated Red Blood Cells % 0.1 %/100WBC (0.0-0.8)
[2023-10-23 18:31] LABS: Urine Appearance Clear; Urine Bacteria Absent /HPF (Absent); Urine Bilirubin Negative (Negative); Urine Blood Negative (Negative); Urine Color Light-Yellow; Urine Glucose Negative (Negative); Urine Ketones 1+ (Negative); Urine Nitrite Negative (Negative); Urine Protein 1+ (>=30 mg/dL) (Negative); Urine Red Blood Cell 2+(6-10/hpf) /HPF (0-Trace); Urine Specific Gravity >1.050 (1.002-1.030); Urine Squamous Epithelial Cell Present /HPF (Absent); Urine Urobilinogen Negative (Negative); Urine White Blood Cell Trace(0-5/hpf) /HPF (0-Trace)
[2023-10-23 18:59] VITALS: BP 183/89
[2023-10-23] MEDS: fentaNYL 100 mcg/2 ml 50 MCG/ML VIAL ONE (19:06)
[2023-10-23] MEDS: Midazolam PREMIXBAG 1 MG/ML NS 100 ML IV SCH (19:14)
[2023-10-23] MEDS: Midazolam PREMIXBAG 1 MG/ML NS 100 ML IV ONE (19:17)
[2023-10-23] MEDS: Morphine 2 MG/ML SYRINGE ONE (19:18)
[2023-10-23] MEDS: Norepinephrine 4 MG/250mL D5W 4,000 MCG/250 ML BAG IV ONE (19:18)
[2023-10-23] MEDS: Succinylcholine 200 mg VIAL 20 mg/ml 10 ml VIAL (200 mg) ONE (19:19)
[2023-10-23] MEDS ORDERED: Norepinephrine *QUAD STRENGTH* 16 mg/250 mL NS PREMIX (ICU ONLY) IV SCH (19:20)
[2023-10-23] MEDS ORDERED: Phenylephrine DRIP 0.2 MG/ML in NS 0.9% 250 ML (PHA mix) IV SCH (19:25)
[2023-10-23] MEDS ORDERED: PHENYLEPHRINE DRIP IVPREMIX 50 MG/250 ML BAG IV SCH (20:00)
[2023-10-24] MEDS: Heparin - STEMI 5,000 UNITS/ML 1 ml VIAL IV ONE (07:41)
== END 2023-10-23 19:45 | disposition short-term general hospital (02) | DRG 270 ==
LOC: ED 13:41 → CHICATH 14:09 → ICU 14:16
PROVIDERS: ADMIT Surgery Surgical Critical Care